=== PATIENT | female | born 1955 | race Caucasian/White ===

== ENCOUNTER 2017-10-03 20:29 | Inpatient (IN) | payer SELFPAY ==
--- NOTE | 2017-10-03 21:01 | ER Document Report ---
ED Medical Screen (RME) - General Chief Complaint: Foot Pain Stated Complaint: LEFT FOOT PAIN/SWELLING Time Seen by Provider: 10/03/17 20:49 Mode of Arrival: Wheelchair Information source: Patient Notes: This is a 61-year-old female with history of chronic back pain (gabapentin, amitriptyline), hypertension (lisinopril, Lasix), lower extremity cellulitis ( currently on Keflex), irregular vaginal bleeding (currently on medroxyprogesterone) who presents to the emergency room with lesions to the left foot. The patient has a history of chronic cellulitis to the right lower extremity. She has chronic sciatic type pain as well. Patient at baseline ambulates with a walker but is limited by her chronic sciatica. She states that 2 nights ago she started having pain in the affected toes. She states that yesterday she had "two blood blisters) to the foot and today the foot is gotten increased pain with increased blistering. Patient also notes that she has got lesions to the left hand as well. These are nontender. She denies fever. She denies recent illness. Patient upgraded in severity: To be moved to room 15 eminently. I have greeted and performed a rapid initial assessment of this patient. A comprehensive ED assessment and evaluation of the patient, analysis of test results and completion of medical decision making process we will be contacted by additional ED providers. TRAVEL OUTSIDE OF THE [place] IN LAST 30 DAYS: No - Related Data Allergies/Adverse Reactions: Penicillins Allergy (Verified 10/03/17 20:30) Physical Exam - Vital signs Vitals: Temp Pulse Resp BP Pulse Ox 98.2 F 116 H 16 128/83 H 96 10/03/17 20:36 10/03/17 20:36 10/03/17 20:36 10/03/17 20:36 10/03/17 20:36 Course - Vital Signs Vital signs: Temp Pulse Resp BP Pulse Ox 98.2 F 116 H 16 128/83 H 96 10/03/17 20:36 10/03/17 20:36 10/03/17 20:36 10/03/17 20:36 10/03/17 20:36
[2017-10-03] MEDS ORDERED: VANCOMYCIN HCL INJ 1000 MG VIAL IV ONE ×2 (21:04→21:45)
[2017-10-03] MEDS ORDERED: ONDANSETRON 4 MG TAB.RAPDIS PO ONE (21:06)
[2017-10-03] MEDS ORDERED: MORPHINE SULFATE 10 MG/ML INJ IV ONE (21:06)
[2017-10-03 21:18] LABS: ABSOLUTE EOSINOPHILS # (AUTO) 0.5 10^3/uL (0.0-0.6); ABSOLUTE LYMPHOCYTES (AUTO) 0.9 10^3/uL (0.5-4.7); ABSOLUTE MONOCYTES (AUTO) 0.8 10^3/uL (0.1-1.4); ABSOLUTE NEUT (AUTO) 12.3 10^3/uL (1.7-8.2); BASOPHILS % (AUTO) 0.3 % (0-2); EOSINOPHILS % (AUTO) 3.2 % (0-6); HEMATOCRIT 41.7 % (36.0-47.0); HEMOGLOBIN 13.5 g/dL (12.0-15.5); LYMPHOCYTES % (AUTO) 6.4 % (13-45); MEAN CORPUSCULAR HGB CONC 32.4 g/dL (32.0-36.0); MEAN CORPUSCULAR VOLUME 83 fl (80-97); MONOCYTES % (AUTO) 5.8 % (3-13); PLATELET COUNT 465 10^3/uL (150-450); RED BLOOD COUNT 5.01 10^6/uL (3.72-5.28); RED CELL DISTRIBUTION WIDTH 16.5 % (11.5-14.0); SEGMENTED NEUTROPHILS % (AUTO) 84.3 % (42-78); TOTAL CELLS COUNTED % (AUTO) 100 %; WHITE BLOOD COUNT 14.5 10^3/uL (4.0-10.5)
[2017-10-03 21:25] LABS: INTERNATIONAL RATION (INR) 0.98; PROTHROMBIN TIME 13.5 SEC (11.4-15.4)
[2017-10-03 21:26] LABS: PARTIAL THROMBOPLASTIN TIME 32.8 SEC (23.5-35.8)
[2017-10-03 21:40] LABS: ALANINE AMINOTRANSFERASE 23 U/L (9-52); ALBUMIN 4.1 g/dL (3.5-5.0); ALKALINE PHOSPHATASE 86 U/L (38-126); ANION GAP 13 (5-19); ASPARTATE AMINO TRANSFERASE 21 U/L (14-36); BILIRUBIN,DIRECT 0.3 mg/dL (0.0-0.4); BILIRUBIN,TOTAL 0.3 mg/dL (0.2-1.3); BLOOD UREA NITROGEN 21 mg/dL (7-20); CALCIUM 9.7 mg/dL (8.4-10.2); CARBON DIOXIDE 27 mmol/L (22-30); CHLORIDE 101 mmol/L (98-107); GLUCOSE 123 mg/dL (75-110); POTASSIUM 4.6 mmol/L (3.6-5.0); TOTAL PROTEIN 8.3 g/dL (6.3-8.2)
[2017-10-03] MEDS ORDERED: CEFEPIME 2 GM/D5W RTU 2 GM/50 ML RTUPB IV ONE (21:45)
[2017-10-03] MEDS ORDERED: FENTANYL CITRATE INJ/PF 100 MCG/2 ML AMPUL IV ONE (21:49)
--- NOTE | 2017-10-03 21:49 | ER Document Report ---
ED Extremity Problem, Lower - General Chief Complaint: Foot Pain Stated Complaint: LEFT FOOT PAIN/SWELLING Time Seen by Provider: 10/03/17 20:49 Mode of Arrival: Wheelchair Notes: Patient is a 61-year-old female that comes emergency department for chief complaint of severe worsening leg pain since yesterday, she has history of chronic cellulitis worse in the right lower extremity, had a Unna boot placed on the right lower extremity 5 days ago. She is currently on Keflex antibiotic. She states that yesterday she started noticing what looked like "bloody blisters" on the left foot, she cannot see the right foot. She has had increased pain and increased blistering since that time. Pain is so bad she cannot walk. She is starting to get blistering to the left hand area as well. No tenderness to the left hand. She denies fever or chills, nausea or vomiting. Other history includes chronic back pain, hypertension, peripheral vascular disease, and irregular vaginal bleeding on medroxyprogesterone. TRAVEL OUTSIDE OF THE [place] IN LAST 30 DAYS: No - Related Data Allergies/Adverse Reactions: Penicillins Allergy (Verified 10/03/17 20:30) Past Medical History - General Information source: Patient - Social History Smoking Status: Never Smoker Drug Abuse: None Lives with: Spouse/Significant other Family History: Reviewed & Not Pertinent - Past Medical History Cardiac Medical History: Reports: Hx Hypertension, Hx Peripheral Vascular Disease - Immunizations Immunizations up to date: No Hx Diphtheria, Pertussis, Tetanus Vaccination: Yes Review of Systems - Review of Systems Constitutional: No symptoms reported EENT: No symptoms reported Cardiovascular: See HPI Respiratory: No symptoms reported Gastrointestinal: No symptoms reported Genitourinary: No symptoms reported Female Genitourinary: No symptoms reported Musculoskeletal: See HPI Skin: See HPI Hematologic/Lymphatic: No symptoms reported Neurological/Psychological: No symptoms reported Physical Exam - Vital signs Vitals: Temp Pulse Resp BP Pulse Ox 98.2 F 116 H 16 128/83 H 96 10/03/17 20:36 10/03/17 20:36 10/03/17 20:36 10/03/17 20:36 10/03/17 20:36 - Notes Notes: GENERAL: Alert, interacts well. Patient grimacing in pain. Morbidly obese. HEAD: Normocephalic, atraumatic. EYES: Pupils equal, round, and reactive to light. Extraocular movements intact. ENT: Oral mucosa moist, tongue midline. NECK: Full range of motion. Supple. Trachea midline. LUNGS: Clear to auscultation bilaterally, no wheezes, rales, or rhonchi. No respiratory distress. HEART: Tachycardia noted but normal rhythm. No murmur ABDOMEN: Soft, non-tender. Non-distended. Bowel sounds present in all 4 quadrants. EXTREMITIES: Unna boot on right leg and foot, left leg with erythema of the dorsum of the foot extending around to the bottom of the foot and up the leg, there are multiple blisters over the toe with bruising blood-filled appearance, there is swelling to the extremity and some hardness extending up the leg. Tender to palpation. Cap refill is still intact. Sensation is still intact. Old ecchymosis looking area over the dorsum of the left hand. Normal upper extremity exam otherwise. BACK: no cervical, thoracic, lumbar midline tenderness. No saddle anesthesia, normal distal neurovascular exam. NEUROLOGICAL: Alert and oriented x3. Normal speech. [cranial nerves II through XII grossly intact]. PSYCH: Normal affect, normal mood. SKIN: Warm, dry, normal turgor. No rashes or lesions noted. Course - Re-evaluation Re-evalutation: Patient with impressive lower extremity swelling with secondary cellulitis and what appear to be blisters filled with blood over the toes. This is consistent with both feet. In the creases behind the knee as well. Areas are very tender , there is some firmness. Capillary refill and sensation intact. Feet are not cold but I cannot palpate pulse because of the swelling. Arterial Doppler shows pulses on both feet which appear normal. After elevation the feet and legs became less firm and less tender. No fever. Patient is tachycardic, not hypotensive. Leukocytosis at 14,000 with no bands. D-dimer is elevated but I was unable to get a venous Doppler at this time of night. Platelets are normal, clinical picture does not suggest DIC. Broad- spectrum antibiotics begun including vancomycin and cefepime. Discussed with Dr. Sims. Discussed with Dr. Romero, recommend CK, this was not significantly elevated, patient will be admitted to telemetry full admission. Patient states agreement with plan. - Vital Signs Vital signs: Temp Pulse Resp BP Pulse Ox 98.2 F 116 H 19 144/70 H 98 06/09/18 20:36 10/03/17 20:36 10/04/17 03:08 10/04/17 03:08 10/04/17 03:08 - Laboratory Result Diagrams: 10/03/17 21:00 10/03/17 21:00 Laboratory results interpreted by me: 10/03/17 10/03/17 10/03/17 21:00 21:00 21:00 WBC 14.5 H RDW 16.5 H Plt Count 465 H Seg Neutrophils % 84.3 H Lymphocytes % 6.4 L Absolute Neutrophils 12.3 H D-Dimer 14.18 H BUN 21 H Glucose 123 H Hemoglobin A1c % Total Protein 8.3 H 10/03/17 21:00 WBC RDW Plt Count Seg Neutrophils % Lymphocytes % Absolute Neutrophils D-Dimer BUN Glucose Hemoglobin A1c % 6.2 H Total Protein Discharge - Discharge Clinical Impression: Tachycardia Lower extremity cellulitis Qualifiers: Laterality: left Qualified Code(s): L03.116 - Cellulitis of left lower limb Leukocytosis Qualifiers: Leukocytosis type: other Qualified Code(s): D72.828 - Other elevated white blood cell count Condition: Stable Disposition: ADMITTED INPATIENT Admitting Provider: Hospitalist Unit Admitted: Telemetry
[2017-10-03 22:03] LABS: D-DIMER 14.18 ug/mL (0.00-0.50)
--- NOTE | 2017-10-03 22:16 | RADIOLOGY REPORT (SQ) ---
EXAM DESCRIPTION: CHEST SINGLE VIEW COMPLETED DATE/TIME: 10/03/2017 9:58 pm REASON FOR STUDY: leg infection COMPARISON: None. EXAM PARAMETERS: NUMBER OF VIEWS: One view. TECHNIQUE: Single frontal radiographic view of the chest acquired. RADIATION DOSE: NA LIMITATIONS: Patient's body habitus and positioning. FINDINGS: LUNGS AND PLEURA: The patient is rotated. Subsegmental atelectasis noted at the right mid lung. There is blunting of the left costophrenic angle with airspace opacity at the left lung base. No pneumothorax. MEDIASTINUM AND HILAR STRUCTURES: No obvious masses. HEART AND VASCULAR STRUCTURES: The heart is upper normal limit in size. No overt vascular congestion . BONES: Degenerative changes are seen within the spine. HARDWARE: None in the chest. IMPRESSION: Subsegmental atelectasis at the right midlung. Blunting of the left costophrenic angle with airspace opacity at the left lung base, may be secondary to a small left pleural effusion with a djacent atelectasis or pneumonia. Followup with PA and lateral views recommended when patient's cond ition allows. TECHNICAL DOCUMENTATION: JOB ID: [id number] [employer]- All Rights Reserved Reading location - IP/workstation name: [email or web address]
[2017-10-03 22:25] LABS: VENOUS BLOOD BASE EXCESS 1.5 mmol/L; VENOUS BLOOD HCO3 26.9 mmol/L (20-32); VENOUS BLOOD PCO2 45.5 mmHg (35-63); VENOUS BLOOD PH 7.39 (7.30-7.42)
[2017-10-03] MEDS ORDERED: MORPHINE SULFATE IR 15 MG TABLET PO ONE (23:20)
[2017-10-04] MEDS ORDERED: IPRATROPIUM/ALBUTEROL 0.5-2.5 MG/3 ML AMPUL NEB PRN (01:22)
[2017-10-04] MEDS ORDERED: MAGNESIUM HYDROXIDE SUSP 30 ML UDCUP PO PRN (01:22)
[2017-10-04] MEDS ORDERED: KETOROLAC TROMETHAMINE INJ/PF 30 MG/1 ML SDV IV PRN (01:25)
[2017-10-04] MEDS ORDERED: VANCOMYCIN HCL 0 MG in DEXTROSE 5%-WATER 250 ML IV NR (01:30)
[2017-10-04] MEDS: NORMAL SALINE 1000 ML 1,000 ML IV SCH ×2 (04:05→09:07)
[2017-10-04 06:27] LABS: ABSOLUTE BASOPHILS # (AUTO) 0.1 10^3/uL (0.0-0.2); ABSOLUTE EOSINOPHILS # (AUTO) 0.3 10^3/uL (0.0-0.6); ABSOLUTE LYMPHOCYTES (AUTO) 0.9 10^3/uL (0.5-4.7); ABSOLUTE MONOCYTES (AUTO) 0.8 10^3/uL (0.1-1.4); ABSOLUTE NEUT (AUTO) 9.9 10^3/uL (1.7-8.2); BASOPHILS % (AUTO) 0.7 % (0-2); EOSINOPHILS % (AUTO) 2.7 % (0-6); HEMATOCRIT 34.7 % (36.0-47.0); LYMPHOCYTES % (AUTO) 7.5 % (13-45); MEAN CORPUSCULAR HEMOGLOBIN 27.5 pg (27.0-33.4); MEAN CORPUSCULAR HGB CONC 32.7 g/dL (32.0-36.0); MEAN CORPUSCULAR VOLUME 84 fl (80-97); MONOCYTES % (AUTO) 6.3 % (3-13); PLATELET COUNT 401 10^3/uL (150-450); RED BLOOD COUNT 4.13 10^6/uL (3.72-5.28); RED CELL DISTRIBUTION WIDTH 16.2 % (11.5-14.0); SEGMENTED NEUTROPHILS % (AUTO) 82.8 % (42-78); TOTAL CELLS COUNTED % (AUTO) 100 %
--- NOTE | 2017-10-04 06:37 | PDOC H&P ---
History of Present Illness Admission Date/PCP: 10/04/17 01:17 ARNIE MEREDITH MD Patient complains of: Right leg pain History of Present Illness: CHIDI RIVERA is a 61 year old female with a past medical history of morbid obesity and bilateral venous stasis. Patient presents with 24 hours of right lower leg erythema swelling pain developing blisters in the toes bilaterally.. Patient has been on Keflex for chronic cellulitis via wound care clinic. She denies any new skin products, clothing, medications, seafood or water exposure. In the emergency room she is started on empiric antibiotics, symptomatic management and referred to the hospitalist for admission. Patient denies previous episode. Past Medical History Cardiac Medical History: Reports: Hypertension, Peripheral Vascular Disease Pulmonary Medical History: Reports: Sleep Apnea EENT Medical History: Reports: None Neurological Medical History: Reports: None Endocrine Medical History: Reports: None Renal/ Medical History: Reports: None Malignancy Medical History: Reports: None GI Medical History: Reports: None Musculoskeltal Medical History: Reports: Arthritis Skin Medical History: Reports: None Psychiatric Medical History: Reports: None Traumatic Medical History: Reports: None Hematology: Reports: None Infectious Medical History: Reports: None Past Surgical History Past Surgical History: Reports: None Social History Information Source: Patient, [facility] Records Lives with: Spouse/Significant other Smoking Status: Never Smoker Frequency of Alcohol Use: None Drugs: None - Advance Directive Resuscitation Status: Full Code Family History Family History: Hypertension Parental Family History Reviewed: Yes Children Family History Reviewed: Yes Sibling(s) Family History Reviewed.: Yes Medication/Allergy Allergies/Adverse Reactions: Penicillins Allergy (Verified 10/03/17 20:30) Review of Systems Constitutional: ABSENT: chills, fever(s), headache(s), weight gain, weight loss Eyes: ABSENT: visual disturbances Ears: ABSENT: hearing changes Cardiovascular: ABSENT: chest pain, dyspnea on exertion, edema, orthropnea, palpitations Respiratory: ABSENT: cough, hemoptysis Gastrointestinal: ABSENT: abdominal pain, constipation, diarrhea, hematemesis, hematochezia, nausea, vomiting Genitourinary: ABSENT: dysuria, hematuria Musculoskeletal: ABSENT: joint swelling Integumentary: ABSENT: rash, wounds Neurological: ABSENT: abnormal gait, abnormal speech, confusion, dizziness, focal weakness, syncope Psychiatric: ABSENT: anxiety, depression, homidical ideation, suicidal ideation Endocrine: ABSENT: cold intolerance, heat intolerance, polydipsia, polyuria Hematologic/Lymphatic: ABSENT: easy bleeding, easy bruising Physical Exam Vital Signs: Temp Pulse Resp BP Pulse Ox 98.5 F 103 H 19 130/57 H 93 10/04/17 04:19 10/04/17 04:19 10/04/17 04:19 10/04/17 04:19 10/04/17 04:19 Intake & Output 10/02/17 10/03/17 10/04/17 11:59 11:59 11:59 Intake Total 0 Output Total 500 Balance -500 Weight 132.2 kg General appearance: PRESENT: cooperative, disheveled, mild distress, morbidly obese Head exam: PRESENT: atraumatic, normocephalic Eye exam: PRESENT: conjunctiva pink, EOMI, PERRLA. ABSENT: scleral icterus Ear exam: PRESENT: normal external ear exam Mouth exam: PRESENT: moist, tongue midline Neck exam: ABSENT: carotid bruit, JVD, lymphadenopathy, thyromegaly Respiratory exam: PRESENT: clear to auscultation shari, crackles. ABSENT: rales, rhonchi, wheezes Cardiovascular exam: PRESENT: RRR. ABSENT: diastolic murmur, rubs, systolic murmur Pulses: PRESENT: normal dorsalis pedis pul Vascular exam: PRESENT: normal capillary refill GI/Abdominal exam: PRESENT: normal bowel sounds, soft. ABSENT: distended, guarding, mass, organolmegaly, rebound, tenderness Rectal exam: PRESENT: deferred Extremities exam: PRESENT: +2 edema - Right lower extremity with blistering of the toes, no open ulcer or exudate, +2 edema and circumferential erythema to the mid thigh. Neurological exam: PRESENT: alert, awake, oriented to person, oriented to place , oriented to time, oriented to situation, CN II-XII grossly intact. ABSENT: motor sensory deficit Psychiatric exam: PRESENT: appropriate affect, normal mood. ABSENT: homicidal ideation, suicidal ideation Skin exam: PRESENT: dry, intact, warm, other - As above. ABSENT: cyanosis, rash Results Impressions: Chest X-Ray 10/03/17 20:52 IMPRESSION: Subsegmental atelectasis at the right midlung. Blunting of the left costophrenic angle with airspace opacity at the left lung base, may be secondary to a small left pleural effusion with adjacent atelectasis or pneumonia. Followup with PA and lateral views recommended when patient's condition allows. Assessment & Plan - Diagnosis (1) Lower extremity cellulitis Qualifiers: Laterality: left Qualified Code(s): L03.116 - Cellulitis of left lower limb Is this a current diagnosis for this admission?: Yes Plan: Bilateral blistering with blood, concern for possible contact dermatitis versus vibrio. Empiric antibiotics, follow-up blood culture, venous Doppler. Surgical consultation consideration of necrotizing fasciitis or compartment syndrome. (2) Morbid obesity Is this a current diagnosis for this admission?: Yes Plan: Morbid obesity will evaluate for metabolic cause with evaluation of thyroid function and dietitian consultation (3) Sleep apnea Is this a current diagnosis for this admission?: Yes Plan: BiPAP (4) Tachycardia Is this a current diagnosis for this admission?: Yes Plan: Secondary to #1, consider beta-blockers if not on home regiment - Time Time Spent: 30 to 50 Minutes - Inpatient Certification Medical Necessity: Need Close Monitoring Due to Risk of Patient Decompensation
[2017-10-04] MEDS: HEPARIN SOD (PORCINE) 5,000 UNIT/ML 1 ML SYRINGE SUBCUT SCH ×2 (06:39→14:04)
[2017-10-04 06:47] LABS: HEMOGLOBIN 11.4 g/dL (12.0-15.5)
[2017-10-04 07:15] LABS: ANION GAP 7 (5-19); BLOOD UREA NITROGEN 17 mg/dL (7-20); CARBON DIOXIDE 29 mmol/L (22-30); CHLORIDE 104 mmol/L (98-107); GLUCOSE 99 mg/dL (75-110); SODIUM 140.2 mmol/L (137-145)
[2017-10-04] MEDS: CEFEPIME 1 GM/D5W RTU 1 GM/50 ML RTUPB IV SCH ×2 (09:06→21:54)
[2017-10-04] MEDS: DOCUSATE SODIUM 100 MG CAPSULE PO SCH ×2 (09:07→17:15)
[2017-10-04] MEDS ORDERED: FENTANYL CITRATE INJ/PF 100 MCG/2 ML AMPUL IV PRN (10:49)
[2017-10-04] MEDS: VANCOMYCIN HCL 1,250 MG in DEXTROSE 5%-WATER 250 ML IV SCH ×2 (11:19→22:53)
--- NOTE | 2017-10-04 11:49 | XCELERA REPORT ---
[address] [address] Lower Extremity Arterial Evaluation Name: CHIDI RIVERA Age: 61 yrs Gender: Female : 1955 Patient Status: Emergency Patient Location: ER Study Date: 10/03/2017 10:08 PM Procedure: A color flow and duplex scan of the lower extremity arteries was performed on the left with velocity and waveform anaylsis. Reason For Study: left lower extremity Ordering Physician: GIDEON GARCÍA Performed By: Sujata Wood Measurements and Calculations Right Left CUSTOMER CONSULTANT PSV 215.0 cm/sec Prox PFA PSV 94.3 cm/sec Prox SFA PSV 178.1 cm/sec Mid SFA PSV -94.3 cm/sec Dist SFA PSV -105.6 cm/sec Prox Pop A PSV 56.3 cm/sec Dist MARISELA PSV 54.2 cm/sec Dist SUPERVISOR [employer]ANDSCAPE PSV 33.4 cm/sec Catracho Pedis PSV 91.8 98.2 cm/sec Left Side Arterial Evaluation Normal velocity and triphasic waveforms noted from the Common Femoral artery to the Popliteal . Biphasic in the infrageniculate vessels 20-49 % stenosis at the infrageniculate level . Ankle Brachial index not done due to body habitus. Interpretation Summary Moderate hemodynamically significant lesions in the left lower extremity only, on duplex imaging, at rest. : GIDEON GARCÍA > Bernabe Win
--- NOTE | 2017-10-04 12:54 | PDOC PROGRESS REPORT ---
Subjective Progress Note for:: 10/04/17 Subjective:: The patient is a 61-year-old female with past medical history significant for morbid obesity, bilateral venous stasis, hypertension, peripheral vascular disease, sleep apnea, arthritis, and chronic cellulitis of the right lower extremity followed by wound care clinic who was admitted on 10/04/17 for worsening lower extremity cellulitis. Patient is seen on morning rounds. She is found resting in bed on supplemental oxygen via nasal cannula 2 L/min. She appears to be mildly dyspneic at rest, but is fully conversational without pauses while speaking. She reports that she has had chronic cellulitis of the right lower extremity recently treated by Matthew and Lauren turk. She reports approximately 3-4 days ago she noted blisters to her left foot. She reports that initially they were not painful and she did not note any erythema or worsening edema to the left extremity. She reports that a few days later, she noted that the blisters appear to be filled with blood which prompted her to be seen in the emergency department. She was not aware she had similar bullae to her right toes as she is not able to visualize that extremity. She denies fever, chills, malaise, chest pain, palpitations, abdominal pain, nausea vomiting or diarrhea. She denies recent skin injuries. She is a poor historian regarding her entire medical history; but does deny history of IV drug use, valve prosthesis, and atrial fibrillation. Reason For Visit: CELLULITIS MORBID OBESITY Physical Exam Vital Signs: Temp Pulse Resp BP Pulse Ox 97.4 F 92 18 113/43 L 96 10/04/17 07:56 10/04/17 09:24 10/04/17 09:24 10/04/17 07:56 10/04/17 09:24 Intake & Output 10/03/17 10/04/17 10/05/17 06:59 06:59 06:59 Intake Total 400 Output Total 500 Balance -100 Weight 132.2 kg General appearance: PRESENT: no acute distress, cooperative, morbidly obese, well-developed, well-nourished Head exam: PRESENT: atraumatic, normocephalic Eye exam: PRESENT: conjunctiva pink, EOMI, PERRLA. ABSENT: scleral icterus Mouth exam: PRESENT: moist, tongue midline Neck exam: ABSENT: carotid bruit, JVD, lymphadenopathy, thyromegaly Respiratory exam: PRESENT: decreased breath sounds - Bibasilar; secondary to body habitus, positioning, respiratory effort, prolonged expiratory phas, symmetrical, tachypnea, other - Supplemental oxygen via nasal cannula. ABSENT: rales, rhonchi, wheezes Cardiovascular exam: PRESENT: RRR, tachycardia. ABSENT: diastolic murmur, rubs , systolic murmur Vascular exam: PRESENT: normal capillary refill GI/Abdominal exam: PRESENT: normal bowel sounds, soft. ABSENT: distended, guarding, mass, organolmegaly, rebound, tenderness Rectal exam: PRESENT: deferred Extremities exam: PRESENT: other - Limited range of motion secondary to body habitus and pain. ABSENT: calf tenderness, clubbing, pedal edema Musculoskeletal exam: ABSENT: ambulatory - At baseline, patient requires assistance for transitions but is ambulatory with walker. Neurological exam: PRESENT: alert, awake, oriented to person, oriented to place , oriented to time, oriented to situation, CN II-XII grossly intact. ABSENT: motor sensory deficit Psychiatric exam: PRESENT: appropriate affect, normal mood, other - Tearful. ABSENT: homicidal ideation, suicidal ideation Skin exam: PRESENT: dry, erythema - Right lower extremity, warm, other - RLE erythema beginning just distal to the knee and extending to the dorsum of her foot. +3 nonpitting edema bilaterally. Numerous hemorrhagic bullae to the dorsum of bilateral feet and toes with tender subcutaneous ecchymotic lesions to the plantar surfaces of her feet. Numerous small hemorrhagic bullae to posterior left knee. Two hemorrhagic bullae noted to the posterior left hand, subcutaneous ecchymotic lesions to the palmar surface of bilateral hands.. ABSENT: cyanosis, rash Results Laboratory Results: 10/04/17 06:10 10/04/17 06:10 10/04/17 10/04/17 06:10 06:10 WBC 12.0 H RBC 4.13 Hgb 11.4 L D Hct 34.7 L MCV 84 MCH 27.5 MCHC 32.7 RDW 16.2 H Plt Count 401 Seg Neutrophils % 82.8 H Lymphocytes % 7.5 L Monocytes % 6.3 Eosinophils % 2.7 Basophils % 0.7 Absolute Neutrophils 9.9 H Absolute Lymphocytes 0.9 Absolute Monocytes 0.8 Absolute Eosinophils 0.3 Absolute Basophils 0.1 Sodium 140.2 Potassium 5.0 Chloride 104 Carbon Dioxide 29 Anion Gap 7 BUN 17 Creatinine 0.71 Est GFR ( Amer) > 60 Est GFR (Non-Af Amer) > 60 Glucose 99 Calcium 9.0 10/04/17 06:10 NT-Pro-B Natriuret Pep 321 Impressions: Chest X-Ray 10/03/17 20:52 IMPRESSION: Subsegmental atelectasis at the right midlung. Blunting of the left costophrenic angle with airspace opacity at the left lung base, may be secondary to a small left pleural effusion with adjacent atelectasis or pneumonia. Followup with PA and lateral views recommended when patient's condition allows. Assessment & Plan - Diagnosis (1) Lower extremity cellulitis Qualifiers: Qualified Code(s): L03.116 - Cellulitis of left lower limb Is this a current diagnosis for this admission?: Yes Plan: Bilateral lower leg cellulitis. Chronic cellulitis of the right lower extremity. Upon admission, both ED and hospitalist providers noted erythema and cellulitis to the left lower extremity. On evaluation this morning, erythema of the LLE has resolved. The patient has numerous hemorrhagic bullae to bilateral feet, toes, posterior left knee, posterior left hand and tender subcutaneous ecchymotic lesion to the plantar portion of bilateral feet and palmar surfaces of hands (appearance suggestive of Osler nodes). Differential includes dermatitis, vibrio, necrotizing fasciitis, vasculitis, and embolic skin lesions. Leukocytosis is trending down. Patient remains afebrile. Arterial studdy (LLE) demonstrates 20-49% stenosis at infrageniculate level. Venous doppler is pending. Blood cultures are pending. The patient is admitted to the medical floor on continuous cardiac telemetry. She is supported with IV fluids. She is empirically placed on vancomycin and cefepime. Surgery is consulted; appreciate their expert evaluation and recommendations. Will obtain echocardiogram; noting that images will likely be limited secondary to her body habitus. If sorce remains undetermined (especially if patient develops fever or blood cultures are positive) should consider follow-up KIAN. Consider steroids (for vasculitis); will await surgical evaluation. (2) Skin bulla Is this a current diagnosis for this admission?: Yes Plan: As above. (3) Leukocytosis Qualifiers: Qualified Code(s): D72.828 - Other elevated white blood cell count Is this a current diagnosis for this admission?: Yes Plan: Secondary to #1. Trending down. Cultures and antibiotics as above. (4) Sleep apnea Is this a current diagnosis for this admission?: Yes Plan: CPAP nightly. (5) Morbid obesity Is this a current diagnosis for this admission?: Yes Plan: Morbid obesity will likely complicate the patient's recovery; worsening sleep apnea, wound healing, and poor mobility placing her at further risk of skin break down, pneumonia, thrombosis. We will evaluate TSH with morning labs. A1c is noted to be 6.2. We will ask the registered dietitian to make recommendations. (6) Tachycardia Is this a current diagnosis for this admission?: Yes Plan: Likely secondary to #1; infection, pain, anxiety. Her rate appears to be trending down with IV fluids and supportive care, by mid morning was in the mid 90s. We will continue to monitor. - Time Time Spent with patient: 25-34 minutes Medications reviewed and adjusted accordingly: Yes Anticipated discharge: Acute Rehab - Inpatient Certification Based on my medical assessment, after consideration of the patient's comorbidities, presenting symptoms, or acuity I expect that the services needed warrant INPATIENT care.: Yes I certify that my determination is in accordance with my understanding of Medicare's requirements for reasonable and necessary INPATIENT services [42 CFR 412.3e].: Yes Medical Necessity: Failure to Improve With Outpatient Therapy, Need Close Monitoring Due to Risk of Patient Decompensation, Need for IV Antibiotics
[2017-10-04] MEDS ORDERED: NYSTATIN TOPICAL POWDER 15 GM TP ONE (13:00)
[2017-10-04] MEDS ORDERED: HEPARIN SOD (PORCINE) 1,000 UNIT/ML 10 ML VIAL IV ONE (15:29)
[2017-10-04 16:36] LABS: FIBRINOGEN 609 mg/dL (209-497); INTERNATIONAL RATION (INR) 1.06; PROTHROMBIN TIME 14.3 SEC (11.4-15.4)
[2017-10-04 16:37] LABS: PARTIAL THROMBOPLASTIN TIME 35.3 SEC (23.5-35.8)
[2017-10-04 17:15] LABS: APPEARANCE,URINE CLEAR; BILIRUBIN,URINE NEGATIVE (NEGATIVE); COLOR,URINE STRAW; GLUCOSE, URINE NEGATIVE (NEGATIVE); KETONES,URINE NEGATIVE (NEGATIVE); LEUKOCYTE ESTERASE,URINE NEGATIVE (NEGATIVE); NITRITE,URINE NEGATIVE (NEGATIVE); PROTEIN,URINE NEGATIVE (NEGATIVE); URINE SPECIFIC GRAVITY 1.005; UROBILINOGEN,URINE NEGATIVE mg/dL (<2.0)
[2017-10-04] MEDS: NYSTATIN TOPICAL POWDER 15 GM TP SCH (17:17)
[2017-10-04] MEDS: HYDROCODONE/ACETAMINOPHEN 10-325 MG TABLET PO PRN (19:18)
[2017-10-04] MEDS ORDERED: HEPARIN SOD (PORCINE) 1,000 UNIT/ML 10 ML VIAL ONE (19:57)
[2017-10-04] MEDS: HEPARIN SODIUM,PORCINE/D5W 25,000 UNIT/250 ML RTUINJ IV PRN (20:03)
--- NOTE | 2017-10-04 20:05 | RADIOLOGY REPORT (SQ) ---
EXAM DESCRIPTION: CTA CHEST COMPLETED DATE/TIME: 10/04/2017 7:13 pm REASON FOR STUDY: dyspnea, hypoxia, tachycardia ?PE COMPARISON: Recent chest films. TECHNIQUE: CT scan of the chest performed using helical scanning technique with dynamic intravenous contrast injection. Images reviewed with lung, soft tissue and bone windows. Reconstructed coronal and sagittal MPR images reviewed. Additional 3 dimensional post-processing performed to develop Maximal Intensity Projection images (NE P). All images stored on PACS. All CT scanners at this facility use dose modulation, iterative reconstruction, and/or weight based d osing when appropriate to reduce radiation dose to as low as reasonably achievable (ALARA). [facility]: Dose Right [facility]: CareDose [facility]: Dose Right [facility]: Teradose 4D [facility]: Smart Destinations CONTRAST TYPE AND DOSE: contrast/concentration: Isovue 370.00 mg/ml; Total Contrast Delivered: 86.0 ml; Total Saline Delivered: 110.0 ml Contrast bolus adequate for pulmonary arteries and aorta. RENAL FUNCTION: GFR > 60. RADIATION DOSE: CT Rad equipment meets quality standard of care and radiation dose reduction techniq ues were employed. CTDIvol: 38.1 - 57.9 mGy. DLP: 1344 mGy-cm. . LIMITATIONS: Mildly limiting motion artifact. FINDINGS: LUNGS AND PLEURA: Areas of patchy scar, subsegmental atelectasis and haziness in the lung turner. Superimposed on motion. Small right pleural effusion. AORTA AND GREAT VESSELS: No aneurysm. Contrast bolus not optimized for the aorta. HEART: Cardiac enlargement. Marked coronary calcification. No pericardial effusion. PULMONARY ARTERIES: Prominent central pulmonary arteries with attenuation peripherally. This may ref lect pulmonary arterial hypertension. No embolus detected. HILAR AND MEDIASTINAL STRUCTURES: There is relatively mild mediastinal and hilar adenopathy with gene rally subcentimeter lymph nodes. Moderate hiatal hernia. HARDWARE: None in the chest. UPPER ABDOMEN: Mild contrast refluxing into dilated hepatic veins. This suggests right heart failure . THYROID AND OTHER SOFT TISSUES: No masses. No adenopathy. BONES: Spondylosis. No fracture or worrisome bone lesion. 3D MIPS: Confirm above findings. OTHER: No other significant finding. IMPRESSION: 1. No pulmonary embolus. There may be pulmonary arterial hypertension, however. 2. Ma rked cardiomegaly. Small right pleural effusion. 3. Motion artifact and lung changes as above. Katlyn pect some of this represents mild edema related to CHF. COMMENT: Quality ID # [id number]: Final reports with documentation of one or more dose reduction techniques (e.g., Automated exposure control, adjustment of the mA and/or kV according to patient size, use of iterative reconstruction technique) TECHNICAL DOCUMENTATION: JOB ID: [id number] [employer]- All Rights Reserved Reading location - IP/workstation name: [email or web address]
--- NOTE | 2017-10-04 21:46 | Progress Note ---
Provider Note Provider Note: Repeat physical exam: Bilateral feet are essentially unchanged. Purpuric lesions are still present. No extension or enlargement. Minimal tenderness. Minimal erythema. Patient was started on heparin earlier today. No fever/chills. No overt signs of abscess. Continue with close observation, antibiotics, and blood thinners.
--- NOTE | 2017-10-04 22:26 | PDOC CONSULTATION ---
Consultation Consult Date: 10/04/17 Consult reason:: cellulitis of right leg. Bruising to bilateral feet. History of Present Illness Admission Date/PCP: 10/04/17 01:17 ARNIE MEREDITH MD History of Present Illness: The patient is seen in consultation at the request of the hospitalist service. CHIDI RIVERA is a 61 year old female with a 2-day history of pain in bilateral feet and swelling/erythema of the right leg. Patient has chronic venous insufficiency and has been undergoing Unna boot therapy on the right. The patient reports noticing bruising on her feet approximately 48 hours ago. The bruising has become more widespread over the last 24 hours. The patient reports mild to moderate pain in bilateral lower extremities. Her pain is characterized as a cramping/throbbing pain. The pain is worsened by palpation. The pain is relieved by nothing. The patient denies any change in motor or sensory function. The patient does report shortness of breath with increasing oxygen requirements, but denies overt chest pain, dizziness, abdominal pain, melena, hematochezia, orthostasis. Past Medical History Cardiac Medical History: Reports: Hypertension, Peripheral Vascular Disease Pulmonary Medical History: Reports: Sleep Apnea, Other - Wears oxygen at home occasionally. EENT Medical History: Reports: None Neurological Medical History: Reports: None Endocrine Medical History: Reports: None Renal/ Medical History: Reports: None Malignancy Medical History: Reports: None GI Medical History: Reports: None Musculoskeltal Medical History: Reports: Arthritis Skin Medical History: Reports: None Psychiatric Medical History: Reports: None Traumatic Medical History: Reports: None Hematology: Reports: None Infectious Medical History: Reports: None Past Surgical History Past Surgical History: Reports: None Social History Lives with: Spouse/Significant other Smoking Status: Never Smoker Frequency of Alcohol Use: None Drugs: None - Advance Directive Resuscitation Status: Full Code Family History Family History: Hypertension Parental Family History Reviewed: Yes Children Family History Reviewed: Yes Sibling(s) Family History Reviewed.: Yes Medication/Allergy Home Medications: Amitriptyline HCl 1 tab PO DAILY 10/04/17 Duloxetine HCl 20 mg PO DAILY 10/04/17 Furosemide [Lasix 40 mg Tablet] 40 mg PO QAM 10/04/17 Gabapentin [Neurontin 300 mg Capsule] 900 mg PO Q8 10/04/17 Hydrocodone Bit/Acetaminophen [Hydrocodon-Acetaminophn 10-325] 1 each PO BID PRN 10/04/17 Hydrocodone/Acetaminophen [[place] 10-325 mg Tablet] 1 tab PO Q4HP PRN 10/04/17 Lisinopril 10 mg PO DAILY 10/04/17 Medroxyprogesterone Acetate 1 tab PO TID 10/04/17 Allergies/Adverse Reactions: Penicillins Allergy (Verified 10/03/17 20:30) Review of Systems Constitutional: PRESENT: fatigue. ABSENT: chills, fever(s), headache(s) Eyes: ABSENT: visual disturbances Ears: ABSENT: hearing changes Nose, Mouth, and Throat: ABSENT: sore throat Cardiovascular: PRESENT: dyspnea on exertion, edema, orthropnea, palpitations. ABSENT: chest pain Respiratory: PRESENT: dyspnea. ABSENT: cough Gastrointestinal: ABSENT: abdominal pain, bloating, dysphagia, heartburn Musculoskeletal: PRESENT: other - Swelling and pain in the lateral feet and right lower leg. ABSENT: back pain Integumentary: PRESENT: erythema - Right lower leg, other - Purpuric rash bilateral feet, progressive over the last 48 hours Neurological: ABSENT: memory loss, numbness, paresthesias Psychiatric: ABSENT: anxiety, depression Endocrine: ABSENT: cold intolerance, heat intolerance Hematologic/Lymphatic: ABSENT: easy bruising Physical Exam Vital Signs: Temp Pulse Resp BP Pulse Ox 98.0 F 98 18 98/49 L 91 L 10/04/17 11:30 10/04/17 11:30 10/04/17 11:30 10/04/17 11:30 10/04/17 11:30 Intake & Output 10/03/17 10/04/17 10/05/17 06:59 06:59 06:59 Intake Total 400 Output Total 500 Balance -100 Weight 132.2 kg General appearance: PRESENT: no acute distress Head exam: PRESENT: atraumatic, normocephalic Eye exam: PRESENT: EOMI, PERRLA. ABSENT: scleral icterus Mouth exam: PRESENT: moist, neck supple Neck exam: ABSENT: lymphadenopathy, meningismus, tenderness, thyromegaly, tracheal deviation Respiratory exam: PRESENT: rales, unlabored. ABSENT: chest wall tenderness, wheezes Cardiovascular exam: PRESENT: RRR Pulses: PRESENT: normal radial pulses, +1 pedal pulses bilateral - Palpable dorsalis pedis bilaterally Vascular exam: ABSENT: pallor GI/Abdominal exam: PRESENT: soft. ABSENT: distended, hernia, tenderness Rectal exam: PRESENT: deferred Extremities exam: PRESENT: other - Purpuric rash across bilateral feet. Left worse than right. No purulence or abscess evident. Motor and sensory function is grossly intact. Minimally tender to palpation. Neurological exam: PRESENT: alert, awake, oriented to person, oriented to place , oriented to time, oriented to situation, CN II-XII grossly intact. ABSENT: motor sensory deficit Psychiatric exam: ABSENT: agitated, anxious, depressed Skin exam: PRESENT: erythema, rash - Purpuric rash on bilateral toes and feet.. ABSENT: cyanosis Results Laboratory Results: 10/04/17 06:10 10/04/17 06:10 10/04/17 10/04/17 10/04/17 06:10 06:10 06:10 WBC 12.0 H RBC 4.13 Hgb 11.4 L D Hct 34.7 L MCV 84 MCH 27.5 MCHC 32.7 RDW 16.2 H Plt Count 401 Seg Neutrophils % 82.8 H Lymphocytes % 7.5 L Monocytes % 6.3 Eosinophils % 2.7 Basophils % 0.7 Absolute Neutrophils 9.9 H Absolute Lymphocytes 0.9 Absolute Monocytes 0.8 Absolute Eosinophils 0.3 Absolute Basophils 0.1 Sodium 140.2 Potassium 5.0 Chloride 104 Carbon Dioxide 29 Anion Gap 7 BUN 17 Creatinine 0.71 Est GFR ( Amer) > 60 Est GFR (Non-Af Amer) > 60 Glucose 99 Calcium 9.0 C-Reactive Protein 80.5 H 10/04/17 06:10 NT-Pro-B Natriuret Pep 321 Impressions: Chest X-Ray 10/03/17 20:52 IMPRESSION: Subsegmental atelectasis at the right midlung. Blunting of the left costophrenic angle with airspace opacity at the left lung base, may be secondary to a small left pleural effusion with adjacent atelectasis or pneumonia. Followup with PA and lateral views recommended when patient's condition allows. Assessment & Plan - Diagnosis (1) Chronic venous insufficiency Is this a current diagnosis for this admission?: Yes (2) Arterial embolus of lower extremity Is this a current diagnosis for this admission?: Yes (3) Lower extremity cellulitis Qualifiers: Laterality: right Qualified Code(s): L03.115 - Cellulitis of right lower limb Is this a current diagnosis for this admission?: Yes - Plan Summary Plan Summary: This is a 61-year-old female with multiple significant issues. She is experiencing increasing shortness of breath, which is being followed by the medical service. She also has chronic venous changes in bilateral lower extremities. She has superimposed cellulitis on the right. Graduated compression, elevation, and antibiotics should help resolve this. She also has multiple purpura extending over the dorsal surface of the toes and foot. They have been stable over the last several hours, and I doubt these are infectious in nature. I do not see obvious signs of necrotizing fasciitis. The patient denies a history of blood thinners or embolic events. I am concerned that these purpura represent showering micro emboli. The medical team is ordering a CT angiogram for possible pulmonary embolus. This will allow us to evaluate for significant aortic plaquing. An echo is also ordered. Anticoagulation may be required. Treatment is supportive. Will follow.
[2017-10-05] MEDS: HYDROCODONE/ACETAMINOPHEN 10-325 MG TABLET PO PRN ×2 (02:08→21:12)
[2017-10-05] MEDS: KETOROLAC TROMETHAMINE INJ/PF 30 MG/1 ML SDV IV PRN ×2 (04:26→11:00)
[2017-10-05 05:16] LABS: APPEARANCE,URINE CLEAR; BILIRUBIN,URINE NEGATIVE (NEGATIVE); COLOR,URINE YELLOW; GLUCOSE, URINE NEGATIVE (NEGATIVE); KETONES,URINE NEGATIVE (NEGATIVE); LEUKOCYTE ESTERASE,URINE NEGATIVE (NEGATIVE); NITRITE,URINE NEGATIVE (NEGATIVE); PROTEIN,URINE NEGATIVE (NEGATIVE); URINE SPECIFIC GRAVITY 1.018; UROBILINOGEN,URINE NEGATIVE mg/dL (<2.0)
--- NOTE | 2017-10-05 07:35 | EKG REPORT ---
SEVERITY:- ABNORMAL ECG - SINUS TACHYCARDIA ABNORMAL T, CONSIDER ISCHEMIA, INFERIOR LEADS : Confirmed by: Niels Lund MD 05-Oct-2017 07:34:43
[2017-10-05 08:15] LABS: HEMATOCRIT 34.1 % (36.0-47.0); MEAN CORPUSCULAR HEMOGLOBIN 27.4 pg (27.0-33.4); MEAN CORPUSCULAR HGB CONC 32.3 g/dL (32.0-36.0); MEAN CORPUSCULAR VOLUME 85 fl (80-97); PLATELET COUNT 375 10^3/uL (150-450); RED BLOOD COUNT 4.02 10^6/uL (3.72-5.28); RED CELL DISTRIBUTION WIDTH 16.4 % (11.5-14.0); WHITE BLOOD COUNT 9.3 10^3/uL (4.0-10.5)
[2017-10-05 08:32] LABS: ANION GAP 7 (5-19); BLOOD UREA NITROGEN 14 mg/dL (7-20); CALCIUM 9.1 mg/dL (8.4-10.2); CARBON DIOXIDE 29 mmol/L (22-30); CHLORIDE 107 mmol/L (98-107); GLUCOSE 97 mg/dL (75-110); POTASSIUM 4.8 mmol/L (3.6-5.0); SODIUM 142.5 mmol/L (137-145)
[2017-10-05] MEDS: DOCUSATE SODIUM 100 MG CAPSULE PO SCH ×2 (09:22→17:53)
[2017-10-05] MEDS: FENTANYL CITRATE INJ/PF 100 MCG/2 ML AMPUL IV PRN ×2 (09:22→10:15)
[2017-10-05] MEDS: CEFEPIME 1 GM/D5W RTU 1 GM/50 ML RTUPB IV SCH ×2 (09:28→22:29)
--- NOTE | 2017-10-05 09:28 | PDOC PROGRESS REPORT ---
Subjective Progress Note for:: 10/05/17 Subjective:: Still having pain in her feet Reason For Visit: CELLULITIS MORBID OBESITY Physical Exam Vital Signs: Temp Pulse Resp BP Pulse Ox 98.4 F 93 18 107/64 94 10/05/17 08:00 10/05/17 08:00 10/05/17 08:00 10/05/17 08:00 10/05/17 08:00 Intake & Output 10/04/17 10/05/17 10/06/17 06:59 06:59 06:59 Intake Total 400 4498 Output Total 500 4625 Balance -100 -127 Weight 132.2 kg 130.6 kg Musculoskeletal exam: PRESENT: other - Moderate to severe cellulitis of the distal legs bilaterally. Chronic fungal infection involving all 10 toe nails; bullae sloughing off uneventfully; no israel pus. Results Laboratory Results: 10/05/17 07:19 10/05/17 07:19 10/04/17 10/04/17 10/05/17 06:10 16:38 05:00 WBC RBC Hgb Hct MCV MCH MCHC RDW Plt Count Sodium Potassium Chloride Carbon Dioxide Anion Gap BUN Creatinine Est GFR ( Amer) Est GFR (Non-Af Amer) Glucose Calcium C-Reactive Protein 80.5 H TSH Urine Color STRAW YELLOW Urine Appearance CLEAR CLEAR Urine pH 6.0 6.0 Ur Specific [place] 1.005 1.018 Urine Protein NEGATIVE NEGATIVE Urine Glucose (UA) NEGATIVE NEGATIVE Urine Ketones NEGATIVE NEGATIVE Urine Blood SMALL H MODERATE H Urine Nitrite NEGATIVE NEGATIVE Ur Leukocyte Esterase NEGATIVE NEGATIVE Urine WBC (Auto) 0 6 Urine RBC (Auto) 1 31 10/05/17 10/05/17 10/05/17 07:19 07:19 07:19 WBC 9.3 RBC 4.02 Hgb 11.0 L Hct 34.1 L MCV 85 MCH 27.4 MCHC 32.3 RDW 16.4 H Plt Count 375 Sodium 142.5 Potassium 4.8 Chloride 107 Carbon Dioxide 29 Anion Gap 7 BUN 14 Creatinine 0.71 Est GFR ( Amer) > 60 Est GFR (Non-Af Amer) > 60 Glucose 97 Calcium 9.1 C-Reactive Protein TSH 2.66 Urine Color Urine Appearance Urine pH Ur Specific [place] Urine Protein Urine Glucose (UA) Urine Ketones Urine Blood Urine Nitrite Ur Leukocyte Esterase Urine WBC (Auto) Urine RBC (Auto) 10/04/17 06:10 NT-Pro-B Natriuret Pep 321 Impressions: Chest X-Ray 10/03/17 20:52 IMPRESSION: Subsegmental atelectasis at the right midlung. Blunting of the left costophrenic angle with airspace opacity at the left lung base, may be secondary to a small left pleural effusion with adjacent atelectasis or pneumonia. Followup with PA and lateral views recommended when patient's condition allows. Chest/Abdomen CTA 10/04/17 00:00 IMPRESSION: 1. No pulmonary embolus. There may be pulmonary arterial hypertension, however. 2. Marked cardiomegaly. Small right pleural effusion. 3. Motion artifact and lung changes as above. Suspect some of this represents mild edema related to CHF. Assessment & Plan - Diagnosis (1) Lower extremity cellulitis Qualifiers: Laterality: right Qualified Code(s): L03.115 - Cellulitis of right lower limb Is this a current diagnosis for this admission?: Yes Plan: Assessment: Patient's lower extremity cellulitis bulla appears improved; most of the sloughing. There is no indication for formal surgical debridement. Recommendations: 1. We will start dressing changes with soapy water, Xeroform and Uriel wrap. 2. Patient may be out of bed, as tolerated, with legs elevated. 3. Continue intravenous antibiotics.
[2017-10-05] MEDS: NYSTATIN TOPICAL POWDER 15 GM TP SCH ×2 (10:00→18:00)
--- NOTE | 2017-10-05 10:05 | CONSULTATION REPORT E ---
Consultation Report NAME: CHIDI RIVERA : 1955 AGE: 61Y DATE: 10/05/2017 ROOM: 402 A TO: Lara FLEMING M.D. FROM: JIGNESH MONTIEL M.D. Requesting Physician SUMMARY: The patient is a 61-year-old 3, para 3, who was admitted with cellulitis and now apparently has emboli. We were asked to see the patient secondary to her vaginal bleeding. Patient gives a history of not having any bleeding for a number of years and then upon admission had bleeding and passing what she described as clots. She is on no herbal medicine and cannot remember the other meds that she is on at this time. Unable to do her exam secondary to her body habitus and non cooperation. I have asked for a pelvic ultrasound to determine the endometrial thickness and started her on Provera 10 mg daily for 10 days. Her hemoglobin on admission was 11.4, and that was 2 days ago, and today it is 11, so the patient does not have a massive amount of bleeding. If her endometrial thickness is less than 4 then bleeding can be attributed to atrophic endometrium, and if it is greater than 4 she will need additional biopsies done. DICTATING PHYSICIAN: Lara FLEMING M.D. [id number] [facility]#: [id number] ID: [id number] JOB#: [id number] ACCT: [id number] cc:Lara FLEMING M.D. >
[2017-10-05] MEDS: VANCOMYCIN HCL 1,250 MG in DEXTROSE 5%-WATER 250 ML IV SCH ×2 (10:51→22:29)
[2017-10-05] MEDS ORDERED: MEDROXYPROGESTERONE ACET 10 MG TABLET PO ONE (11:30)
--- NOTE | 2017-10-05 12:27 | RADIOLOGY REPORT (SQ) ---
EXAM DESCRIPTION: CT ABD/PELVIS WITH IV ONLY COMPLETED DATE/TIME: 10/05/2017 11:54 am REASON FOR STUDY: vaginal bleeding, micro emboli COMPARISON: Pelvic ultrasound 10/05/2017 CT chest 10/04/2017 TECHNIQUE: CT scan of the abdomen and pelvis performed using helical scanning technique with dynamic intravenous contrast injection. No oral contrast. Images reviewed with lung, soft tissue, and bone windows. Reconstructed coronal and sagittal MPR images reviewed. Delayed images for evaluation of the urinary system also acquired. All images stored on PACS. All CT scanners at this facility use dose modulation, iterative reconstruction, and/or weight based d osing when appropriate to reduce radiation dose to as low as reasonably achievable (ALARA). [facility]: Dose Right [facility]: CareDose [facility]: Dose Right [facility]: Teradose 4D [facility]: Free[employer]ep[employer] CONTRAST TYPE AND DOSE: contrast/concentration: Isovue 370.00 mg/ml; Total Contrast Delivered: 100.0 ml; Total Saline Delivered: 72.0 ml RENAL FUNCTION: Creatinine 0.71 RADIATION DOSE: CT Rad equipment meets quality standard of care and radiation dose reduction techniq ues were employed. CTDIvol: 25.9 - 29.6 mGy. DLP: 2701 mGy-cm.. LIMITATIONS: None. FINDINGS: LOWER CHEST: Trace right pleural effusion unchanged from CT chest 10/04/2017. Moderate siz e retrocardiac hiatal hernia. Mild cardiomegaly with calcified mitral annulus. LIVER: Normal size. No masses. No dilated ducts. SPLEEN: 15 cm in length. No focal lesions. PANCREAS: No masses. No significant calcifications. No adjacent inflammation or peripancreatic fluid collections. Pancreatic duct not dilated. GALLBLADDER: 3 cm stone in the gallbladder without CT evidence of acute cholecystitis ADRENAL GLANDS: No significant masses or asymmetry. RIGHT KIDNEY AND URETER: No solid masses. No significant calcifications. No hydronephrosis or hyd roureter. LEFT KIDNEY AND URETER: No solid masses. No significant calcifications. No hydronephrosis or hydr oureter. AORTA AND VESSELS: No aneurysm. No dissection. Renal arteries, SMA, celiac without stenosis. RETROPERITONEUM: No retroperitoneal adenopathy, hemorrhage or masses. BOWEL AND PERITONEAL CAVITY: Patient is post ventral hernia repair with mesh and tacks. Along the le ftward lateral edge of the hernia repair, a recurrent defect in the abdominal wall present 6 x 9 cm in diameter. Within a very large left lateral abdominal hernia sac, there is splenic flexure and macie cending colon, majority of the patient's small bowel, and mesenteric fat. No gross CT evidence of eduard wel obstruction. APPENDIX: Not identified uppercase PELVIS: No mass. No free fluid. Normal bladder. Normal size female pelvic organs. Endometrial stri pe difficult to measure ABDOMINAL WALL: As above. 6.5 x 5 cm chronic peripherally calcified fluid collection in the anterior abdominal wall, axial image 65. This is likely old normal prior chronic postsurgical change with ca lcified seroma or hematoma. BONES: Diffuse degenerative changes throughout the lumbar spine OTHER: No other significant finding. IMPRESSION: Left lateral abdominal wall hernia, containing majority of the patient's small bowel and left colon. TECHNICAL DOCUMENTATION: JOB ID: [id number] Quality ID # [id number]: Final reports with documentation of one or more dose reduction techniques (e.g., Au tomated exposure control, adjustment of the mA and/or kV according to patient size, use of iterative reconstruction technique) 2010 [employer]- All Rights Reserved Reading location - IP/workstation name: [email or web address]
--- NOTE | 2017-10-05 12:43 | RADIOLOGY REPORT (SQ) ---
EXAM DESCRIPTION: U/S NON-OB PELVIS TV W/O DOP COMPLETED DATE/TIME: 10/05/2017 12:16 pm REASON FOR STUDY: POSTMENOPAUSAL VAGINAL BLEEDING COMPARISON: CT abdomen and pelvis 10/05/2017 TECHNIQUE: Dynamic and static grayscale images acquired of the pelvis via transvaginal approach and recorded on PACS. Additional selected color Doppler and spectral images recorded. LIMITATIONS: This study is severely limited due to patient body habitus and very limited patient mob ility. FINDINGS: Both transabdominal and endovaginal scanning was performed. Because of patient's large si ze and very limited mobility, we were unable to adequately visualize the uterus. CT today was review ed, sagittal and coronal reconstructions are degraded by patient streak artifact from large body habi tus. Although the uterus is normal size, endometrial stripe cannot be assessed. Ovaries were not visualized by transabdominal or endovaginal scanning IMPRESSION: Nondiagnostic study TECHNICAL DOCUMENTATION: JOB ID: [id number] [employer]- All Rights Reserved Rev-09/11 Reading location - IP/workstation name: [email or web address]
[2017-10-05 14:26] LABS: HEMATOCRIT 36.7 % (36.0-47.0); HEMOGLOBIN 11.8 g/dL (12.0-15.5); MEAN CORPUSCULAR HEMOGLOBIN 27.2 pg (27.0-33.4); MEAN CORPUSCULAR HGB CONC 32.2 g/dL (32.0-36.0); MEAN CORPUSCULAR VOLUME 84 fl (80-97); PLATELET COUNT 380 10^3/uL (150-450); RED BLOOD COUNT 4.35 10^6/uL (3.72-5.28); RED CELL DISTRIBUTION WIDTH 16.6 % (11.5-14.0); WHITE BLOOD COUNT 9.2 10^3/uL (4.0-10.5)
[2017-10-05] MEDS ORDERED: HEPARIN SOD (PORCINE) 1,000 UNIT/ML 10 ML VIAL IV PRN (15:25)
[2017-10-05] MEDS ORDERED: LIDOCAINE 0.5% INJ-PF (5 MG/ML) 50 ML SDV ONE (15:57)
--- NOTE | 2017-10-05 16:08 | XCELERA REPORT ---
[address] [address] Lower Extremity Venous Evaluation Name: CHIDI RIVERA Age: 61 yrs Gender: Female : 1955 Patient Status: Inpatient Patient Location: [address] [place], [place] [address] Study Date: 10/05/2017 09:29 AM Procedure: A bilateral duplex scan of the lower extremity veins was performed. The evaluation included responses to compression and other maneuvers. Reason For Study: leg pin and edema Ordering Physician: JIGNESH MONTIEL Performed By: Abiel Morillo Right Sided Venous Evaluation Study difficult due to body habitus and patient discomfort. Distal Femoral and Popliteal not well seen. Normal vessel filling wall to wall, compression and augmentation as well as Colour flow down to the infrageniculate veins. In the evaluable veins. Left Sided Venous Evaluation Study difficult due to body habitus and patient discomfort. Greater and Small Saphenous veins not well seen. Normal vessel filling wall to wall, compression and augmentation as well as Colour flow down to the infrageniculate veins. In the evaluable veins. Interpretation Summary No duplex evidence of DVT or obstruction in the bilateral lower extremities. Study limited as mentioned. : JIGNESH MONTIEL > Bernabe Win
--- NOTE | 2017-10-05 16:19 | XCELERA REPORT ---
[address] [address] Transthoracic Echocardiogram Report Name: CHIDI RIVERA Age: 61 yrs Gender: Female : 1955 Patient Status: Inpatient Patient Location: [address] [place], [place] [address]A Study Date: 10/05/2017 10:22 AM Procedure: A two-dimensional transthoracic echocardiogram with color flow and Doppler was performed. The study was technically difficult with many images being suboptimal in quality. Reason For Study: ? Endocarditis History: ? Endocarditis. Ordering Physician: SUJATA LOZANO Performed By: Maggie Reardon Interpretation Summary The left ventricle is normal in size. There is normal left ventricular wall thickness. LV EF is >60% Left ventricular systolic function is normal. Doppler measurements suggest normal left ventricular diastolic function The left ventricular wall motion is normal. The left atrial size is normal. There is no mitral valve stenosis. There is no evidence of mitral valve prolapse. There is no vegetation seen on the mitral valve. There is a mild amount of mitral regurgitation There is no aortic valve stenosis There is no LVOT obstruction. No aortic regurgitation is present. There is no tricuspid stenosis. There is moderate pulmonary hypertension by echo RVSP is 54 to 59 mm of Hg , with RA mean of 5 to 10. There is a trace amount of pulmonic regurgitation There is no pericardial effusion. RECOMMEND KIAN. MMode/2D Measurements & Calculations RVDd: 3.6 cm LVIDd: 5.1 cmFS: 19.6 % Ao root diam: 2.3 cm IVSd: 1.1 cm LVIDs: 4.1 cmEDV(Teich): 122.6 ml Ao root area: 4.2 cm2 LVPWd: 1.2 cmESV(Teich): 73.4 ml EF(Teich): 40.1 % LVOT diam: 1.6 cm LVOT area: 2.0 cm2 Doppler Measurements & Calculations MV E max omaira: MV dec slope: Ao V2 max: LV V1 max P.1 cm/sec 220.6 cm/sec 10.0 mmHg MV A max omaira: 289.0 cm/sec2 Ao max PG: LV V1 max: 143.3 cm/sec MV dec time: 19.5 mmHg 158.2 cm/sec MV E/A: 0.80 0.40 sec Ao V2 mean: 137.0 cm/sec Ao mean P.1 mmHg Ao V2 VTI: 34.9 cm NOHEMI(V,D): 1.4 cm2 PA V2 max: TR max omaira: 129.3 cm/sec 333.5 cm/sec PA max P.8 mmHgTR max P.5 mmHg Left Ventricle The left ventricle is normal in size. There is normal left ventricular wall thickness. LV EF is >60%. Left ventricular systolic function is normal. Doppler measurements suggest normal left ventricular diastolic function. The left ventricular wall motion is normal. There is no thrombus. Right Ventricle The right ventricle is not well visualized secondary to technical limitations. Atria The right atrium is normal. The left atrial size is normal. Mitral Valve There is no evidence of mitral valve prolapse. There is no vegetation seen on the mitral valve. There is no mitral valve stenosis. There is a mild amount of mitral regurgitation. Aortic Valve There is no aortic valvular vegetation. There is no aortic valve stenosis. There is no LVOT obstruction. No aortic regurgitation is present. Tricuspid Valve There is no tricuspid stenosis. There is a mild amount of tricuspid regurgitation. There is moderate pulmonary hypertension by echo. RVSP is 54 to 59 mm of Hg , with RA mean of 5 to 10. Pulmonic Valve There is no pulmonic valvular stenosis. There is a trace amount of pulmonic regurgitation. Great Vessels The aortic root is not well visualized. Effusions There is no pericardial effusion. RECOMMEND KIAN. : SUJATA LOZANO > Magui Valderrama
--- NOTE | 2017-10-05 17:44 | Operative Report ---
Operative Report DATE OF SURGERY: 10/05/17 PREOPERATIVE DIAGNOSIS: Sepsis; cellulitis lower extremities POSTOPERATIVE DIAGNOSIS: Same OPERATION: 1. Focused ultrasound of the right neck. 2. Ultrasound directed insertion of triple-lumen central venous access catheter. 3. Interpretation of portable chest x-ray SURGEON: MIGUEL IVERSON ANESTHESIA: Local TISSUE REMOVED OR ALTERED: None COMPLICATIONS: None ESTIMATED BLOOD LOSS: Scant INTRAOPERATIVE FINDINGS: See below PROCEDURE: Informed consent was obtained. The patient was placed in Trendelenburg the right neck and chest wall were exposed, and prepped and draped in a sterile fashion. Surgical plan and surgical timeout discussed. Of note the patient was anticoagulated with heparin. The heparin drip was discontinued prior to the insertion of the catheter The right neck was anesthetized with 1% lidocaine without epinephrine. Using the variable frequency linear transducer, real time, a 18-gauge needle and wire were threaded into the right internal jugular vein. This was a very deep central line. The tract was dilated up, the dilator removed, and the triple- lumen central venous access catheter was threaded into the right internal jugular vein uneventfully to the hub. There was excellent aspiration and flush of saline through all 3 lumens. The catheter was affixed to the skin with a Biopatch and 2-0 silk suture; sterile dressing applied. The patient tolerated the procedure well. There were no complications. Portable upright chest x-ray straight tip of the catheter in the right atrium. No evidence of pneumothorax. Results of the study showed with the nursing staff.
--- NOTE | 2017-10-05 17:45 | PDOC PROGRESS REPORT ---
Subjective Progress Note for:: 10/05/17 Subjective:: The patient is a 61-year-old female with past medical history significant for morbid obesity, bilateral venous stasis, hypertension, peripheral vascular disease, sleep apnea, arthritis, and chronic cellulitis of the right lower extremity followed by wound care clinic who was admitted on 10/04/17 for worsening lower extremity cellulitis. Patient is seen on morning rounds with Dr. Mitchell. She is found resting in bed on supplemental oxygen via nasal cannula 2 L/min. She appears to be mildly dyspneic at rest, but is fully conversational and denies discomfort. She provides a vague history and is unable to answer most questions. She endorses vaginal bleeding overnight. She states that she cannot remember when she last had vaginal bleeding prior to her admission, however ED provider's note indicates that this may be an ongoing issue. Otherwise, her primary concern is pain to her hips and bilateral lower extremities related to movement. She denies fever, chills, malaise, chest pain, palpitations, dyspnea, orthopnea , abdominal pain, nausea, vomiting, diarrhea and constipation. Reason For Visit: CELLULITIS MORBID OBESITY Physical Exam Vital Signs: Temp Pulse Resp BP Pulse Ox 98.4 F 93 17 107/64 94 10/05/17 08:00 10/05/17 11:04 10/05/17 11:04 10/05/17 08:00 10/05/17 08:00 Intake & Output 10/04/17 10/05/17 10/06/17 06:59 06:59 06:59 Intake Total 400 4498 Output Total 500 4625 Balance -100 -127 Weight 132.2 kg 130.6 kg General appearance: PRESENT: disheveled, mild distress, morbidly obese, well- developed, well-nourished Head exam: PRESENT: atraumatic, normocephalic Eye exam: PRESENT: conjunctiva pink, EOMI, PERRLA. ABSENT: scleral icterus Ear exam: PRESENT: normal external ear exam Mouth exam: PRESENT: moist, tongue midline Neck exam: ABSENT: carotid bruit, JVD, lymphadenopathy, thyromegaly Respiratory exam: PRESENT: decreased breath sounds - Basilar secondary to body habitus and inspiratory effort; no obvious adventitious lung sounds auscultated , symmetrical, tachypnea - Shallow, other - Supplemental oxygen via nasal cannula. ABSENT: rales, rhonchi, wheezes Cardiovascular exam: PRESENT: RRR, +S1, +S2. ABSENT: diastolic murmur, rubs, systolic murmur Pulses: PRESENT: normal dorsalis pedis pul Vascular exam: PRESENT: normal capillary refill GI/Abdominal exam: PRESENT: hernia - multiple per patient, mass - Centerally located, distal to umbilicus, 5 cm round, firm mass no tenderness. Slightly smaller mass suprapubically., normal bowel sounds, soft. ABSENT: distended, guarding, organolmegaly - Unable to palpate secondary to body habitus, rebound, tenderness Rectal exam: PRESENT: deferred Extremities exam: ABSENT: calf tenderness, clubbing, full ROM - secondary to pain, pedal edema Musculoskeletal exam: ABSENT: ambulatory - ambulatory with walker at baseline Neurological exam: PRESENT: alert, awake, oriented to person, oriented to place , oriented to time, oriented to situation, CN II-XII grossly intact, other - Forgetful. ABSENT: motor sensory deficit Psychiatric exam: PRESENT: appropriate affect, normal mood, other - tearful. ABSENT: homicidal ideation, suicidal ideation Skin exam: PRESENT: dry, warm, other - RLE erythema beginning just distal to the knee and extending to the dorsum of her foot. +3 nonpitting edema bilaterally. Numerous hemorrhagic bullae to the dorsum of bilateral feet and toes; begining to slough without drainage. Tender subcutaneous ecchymotic lesions to the plantar surfaces of her feet. Numerous small hemorrhagic bullae to posterior left knee. Two hemorrhagic bullae noted to the posterior left hand , subcutaneous ecchymotic lesions to the palmar surface of bilateral hands. Chronic fungal infection to all toes.. ABSENT: cyanosis, rash Results Laboratory Results: 10/05/17 14:09 10/05/17 07:19 10/05/17 10/05/17 10/05/17 05:00 07:19 07:19 WBC 9.3 RBC 4.02 Hgb 11.0 L Hct 34.1 L MCV 85 MCH 27.4 MCHC 32.3 RDW 16.4 H Plt Count 375 Sodium 142.5 Potassium 4.8 Chloride 107 Carbon Dioxide 29 Anion Gap 7 BUN 14 Creatinine 0.71 Est GFR ( Amer) > 60 Est GFR (Non-Af Amer) > 60 Glucose 97 Calcium 9.1 TSH Urine Color YELLOW Urine Appearance CLEAR Urine pH 6.0 Ur Specific [place] 1.018 Urine Protein NEGATIVE Urine Glucose (UA) NEGATIVE Urine Ketones NEGATIVE Urine Blood MODERATE H Urine Nitrite NEGATIVE Ur Leukocyte Esterase NEGATIVE Urine WBC (Auto) 6 Urine RBC (Auto) 31 10/05/17 10/05/17 07:19 14:09 WBC 9.2 RBC 4.35 Hgb 11.8 L Hct 36.7 MCV 84 MCH 27.2 MCHC 32.2 RDW 16.6 H Plt Count 380 Sodium Potassium Chloride Carbon Dioxide Anion Gap BUN Creatinine Est GFR ( Amer) Est GFR (Non-Af Amer) Glucose Calcium TSH 2.66 Urine Color Urine Appearance Urine pH Ur Specific [place] Urine Protein Urine Glucose (UA) Urine Ketones Urine Blood Urine Nitrite Ur Leukocyte Esterase Urine WBC (Auto) Urine RBC (Auto) 10/04/17 06:10 NT-Pro-B Natriuret Pep 321 Impressions: Chest X-Ray 10/03/17 20:52 IMPRESSION: Subsegmental atelectasis at the right midlung. Blunting of the left costophrenic angle with airspace opacity at the left lung base, may be secondary to a small left pleural effusion with adjacent atelectasis or pneumonia. Followup with PA and lateral views recommended when patient's condition allows. Chest/Abdomen CTA 10/04/17 00:00 IMPRESSION: 1. No pulmonary embolus. There may be pulmonary arterial hypertension, however. 2. Marked cardiomegaly. Small right pleural effusion. 3. Motion artifact and lung changes as above. Suspect some of this represents mild edema related to CHF. Transvaginal US 10/05/17 00:00 IMPRESSION: Nondiagnostic study Abdomen/Pelvis CT 10/05/17 08:29 IMPRESSION: Left lateral abdominal wall hernia, containing majority of the patient's small bowel and left colon. Assessment & Plan - Diagnosis (1) Lower extremity cellulitis Qualifiers: Laterality: right Qualified Code(s): L03.115 - Cellulitis of right lower limb Is this a current diagnosis for this admission?: Yes Plan: Bilateral lower leg cellulitis; appearance is most suspicious for showering micro emboli. The patient has numerous hemorrhagic bullae to bilateral feet, toes, posterior left knee, posterior left hand that are begining to slough. Tender subcutaneous ecchymotic lesion to the plantar portion of bilateral feet and palmar surfaces of hands (appearance suggestive of Osler nodes). Differential includes dermatitis, vibrio, necrotizing fasciitis, vasculitis, and embolic skin lesions. Leukocytosis has resolved. Patient remains afebrile. Arterial studdy (LLE) demonstrates 20-49% stenosis at infrageniculate level. Venous doppler is limited but does not positively identify DVT to either leg. Blood cultures have no growth to date. Echocardiogram demonstrated normal LVEF without diastolic dysfunction. No cardiac source of embolus identified; recommends KIAN. CT of the abdomen was negative for aortic aneurysm and dissection. Renal arteries, SMA, celiac without stenosis. CT of the chest negative for PE. The patient is admitted to the medical floor on continuous cardiac telemetry. She is supported with IV fluids. She is empirically placed on vancomycin and cefepime. Surgery is consulted; appreciate their expert evaluation and recommendations. Consider steroids (for vasculitis). (2) Skin bulla Is this a current diagnosis for this admission?: Yes Plan: As above. (3) Microembolization Is this a current diagnosis for this admission?: Yes Plan: Appearance of cellulitis with hemorrhagic bullae to most distal areas of extremities (toes, hands and fingers) and Osler nodes concerning for showering micro-emboli. Echocardiogram demonstrated normal LVEF without diastolic dysfunction. No cardiac source of embolus identified; recommends KIAN. CT of the abdomen was negative for aortic aneurysm and dissection. Renal arteries, SMA, celiac without stenosis. CT of the chest negative for PE. Pre-heparin gtt labs: PT 14.3/INR 1.06/PTT 35.3. Fibrinogen 609, D-dimer 14.18 Patient has been placed on Heparin drip. I have contacted the [facility]; endoscopy admissions office was closed and so KIAN was not able to be scheduled today. Demographics has been faxed. [facility] will call back tomorrow to make arrangements. (4) Vagina bleeding Is this a current diagnosis for this admission?: Yes Plan: There is some questionable history to previous episodes of vaginal bleeding managed as an outpatient. Has come to light that the patient has been noncompliant with medication regimen has not had recent [facility] follow-up. After initiating heparin drip, patient experienced one episode of vaginal bleeding Pelvic and abdominal ultrasound was nondiagnostic secondary to body habitus and patient movement. CT of ABD/Pelvis negative for uterine mass; was unable to comment on endometrial lining [facility] has been consulted; appreciate their expert evaluation and recommendations. Have started the patient on Provera. (5) Sleep apnea Is this a current diagnosis for this admission?: Yes Plan: CPAP nightly. (6) Morbid obesity Is this a current diagnosis for this admission?: Yes Plan: Morbid obesity will likely complicate the patient's recovery; worsening sleep apnea, wound healing, and poor mobility placing her at further risk of skin break down, pneumonia, thrombosis. We will evaluate TSH with morning labs. A1c is noted to be 6.2. We will ask the registered dietitian to make recommendations. (7) Tachycardia Is this a current diagnosis for this admission?: Yes Plan: Likely secondary to #1; infection, pain, anxiety. Her rate appears to be trending down with IV fluids and supportive care, now stable in the mid 90s. We will continue to monitor. (8) Leukocytosis Qualifiers: Qualified Code(s): D72.828 - Other elevated white blood cell count Is this a current diagnosis for this admission?: Yes Plan: Secondary to #1. Resolved. Cultures and antibiotics as above. - Time Time Spent with patient: 35 or more minutes Medications reviewed and adjusted accordingly: Yes
[2017-10-05 18:21] LABS: HEMOGLOBIN 11.5 g/dL (12.0-15.5); MEAN CORPUSCULAR HEMOGLOBIN 27.3 pg (27.0-33.4); MEAN CORPUSCULAR HGB CONC 32.9 g/dL (32.0-36.0); MEAN CORPUSCULAR VOLUME 83 fl (80-97); PLATELET COUNT 401 10^3/uL (150-450); RED BLOOD COUNT 4.21 10^6/uL (3.72-5.28)
--- NOTE | 2017-10-05 18:35 | RADIOLOGY REPORT (SQ) ---
EXAM DESCRIPTION: CHEST SINGLE VIEW COMPLETED DATE/TIME: 10/05/2017 5:29 pm REASON FOR STUDY: CENTRAL PLACEMENT COMPARISON: None. EXAM PARAMETERS: NUMBER OF VIEWS: One view. TECHNIQUE: Single frontal radiographic view of the chest acquired. RADIATION DOSE: NA LIMITATIONS: Demographics mismatch warning. FINDINGS: LUNGS AND PLEURA: Mild pulmonary edema. No pneumothorax. MEDIASTINUM AND HILAR STRUCTURES: No masses. Contour normal. HEART AND VASCULAR STRUCTURES: Heart size borderline. Pulmonary edema. BONES: No acute findings. HARDWARE: Right internal jugular catheter has its tip at or near near the right atrium. OTHER: No other significant finding. IMPRESSION: 1. Mild pulmonary edema. 2. No pneumothorax. 3. Catheter placement as described. TECHNICAL DOCUMENTATION: JOB ID: [id number] [employer]- All Rights Reserved Reading location - IP/workstation name: [email or web address]
[2017-10-05 22:26] LABS: VANCOMYCIN,TROUGH 15.9 ug/mL (5.0-20.0)
[2017-10-06] MEDS: KETOROLAC TROMETHAMINE INJ/PF 30 MG/1 ML SDV IV PRN ×2 (01:00→22:18)
[2017-10-06] MEDS: HYDROCODONE/ACETAMINOPHEN 10-325 MG TABLET PO PRN ×4 (01:04→17:43)
[2017-10-06] MEDS: HEPARIN SODIUM,PORCINE/D5W 25,000 UNIT/250 ML RTUINJ IV PRN ×2 (03:06→17:26)
[2017-10-06 03:37] LABS: ANION GAP 9 (5-19); BLOOD UREA NITROGEN 13 mg/dL (7-20); CALCIUM 9.1 mg/dL (8.4-10.2); CARBON DIOXIDE 29 mmol/L (22-30); CHLORIDE 104 mmol/L (98-107); GLUCOSE 107 mg/dL (75-110); POTASSIUM 4.7 mmol/L (3.6-5.0); SODIUM 141.8 mmol/L (137-145)
[2017-10-06 03:52] LABS: HEMATOCRIT 35.3 % (36.0-47.0); HEMOGLOBIN 11.4 g/dL (12.0-15.5); MEAN CORPUSCULAR HEMOGLOBIN 27.1 pg (27.0-33.4); MEAN CORPUSCULAR HGB CONC 32.4 g/dL (32.0-36.0); MEAN CORPUSCULAR VOLUME 84 fl (80-97); PLATELET COUNT 401 10^3/uL (150-450); RED BLOOD COUNT 4.23 10^6/uL (3.72-5.28); RED CELL DISTRIBUTION WIDTH 16.3 % (11.5-14.0); WHITE BLOOD COUNT 10.5 10^3/uL (4.0-10.5)
[2017-10-06] MEDS: DOCUSATE SODIUM 100 MG CAPSULE PO SCH ×2 (11:26→17:26)
[2017-10-06] MEDS: NORMAL SALINE 1000 ML 1,000 ML IV PRN ×2 (11:28→22:14)
--- NOTE | 2017-10-06 12:02 | PDOC PROGRESS REPORT ---
Subjective Progress Note for:: 10/06/17 Subjective:: Feels better. Less leg pain. Reason For Visit: CELLULITIS MORBID OBESITY Physical Exam Vital Signs: Temp Pulse Resp BP Pulse Ox 97.6 F 91 16 146/80 H 91 L 10/06/17 08:01 10/06/17 11:35 10/06/17 11:35 10/06/17 07:48 10/06/17 07:48 Intake & Output 10/05/17 10/06/17 10/07/17 06:59 06:59 06:59 Intake Total 4498 5514 Output Total 4625 8925 Balance -127 2989 Weight 130.6 kg 134.6 kg General appearance: PRESENT: no acute distress, cooperative Extremities exam: PRESENT: other - Right lower leg with diffuse erythema. Bilateral feet with a mild diffuse erythema with multiple blisters. Palpable pulses. Results Laboratory Results: 10/06/17 03:30 10/06/17 02:00 10/05/17 10/05/17 10/05/17 14:09 18:10 21:15 WBC 9.2 11.0 H RBC 4.35 4.21 Hgb 11.8 L 11.5 L Hct 36.7 35.0 L MCV 84 83 MCH 27.2 27.3 MCHC 32.2 32.9 RDW 16.6 H 16.0 H Plt Count 380 401 Sodium Potassium Chloride Carbon Dioxide Anion Gap BUN Creatinine 0.65 Est GFR ( Amer) > 60 Est GFR (Non-Af Amer) > 60 Glucose Calcium 10/06/17 10/06/17 02:00 03:30 WBC 10.5 RBC 4.23 Hgb 11.4 L Hct 35.3 L MCV 84 MCH 27.1 MCHC 32.4 RDW 16.3 H Plt Count 401 Sodium 141.8 Potassium 4.7 Chloride 104 Carbon Dioxide 29 Anion Gap 9 BUN 13 Creatinine 0.68 Est GFR ( Amer) > 60 Est GFR (Non-Af Amer) > 60 Glucose 107 Calcium 9.1 10/04/17 06:10 NT-Pro-B Natriuret Pep 321 Impressions: Chest/Abdomen CTA 10/04/17 00:00 IMPRESSION: 1. No pulmonary embolus. There may be pulmonary arterial hypertension, however. 2. Marked cardiomegaly. Small right pleural effusion. 3. Motion artifact and lung changes as above. Suspect some of this represents mild edema related to CHF. Chest X-Ray 10/05/17 00:00 IMPRESSION: 1. Mild pulmonary edema. 2. No pneumothorax. 3. Catheter placement as described. Transvaginal US 10/05/17 00:00 IMPRESSION: Nondiagnostic study Abdomen/Pelvis CT 10/05/17 08:29 IMPRESSION: Left lateral abdominal wall hernia, containing majority of the patient's small bowel and left colon. Assessment & Plan - Diagnosis (1) Chronic venous insufficiency Is this a current diagnosis for this admission?: Yes (2) Lower extremity cellulitis Qualifiers: Laterality: right Qualified Code(s): L03.115 - Cellulitis of right lower limb Is this a current diagnosis for this admission?: Yes Plan: Mostly on the right leg but bilateral feet with involvement but appears to be improving with antibiotics. Keep legs elevated. Would not debride her small blisters. I do not see any role for surgical involvement at this time.
[2017-10-06] MEDS: CEFEPIME 1 GM/D5W RTU 1 GM/50 ML RTUPB IV SCH ×2 (12:08→22:13)
[2017-10-06] MEDS: MEDROXYPROGESTERONE ACET 10 MG TABLET PO SCH (12:12)
[2017-10-06] MEDS: NYSTATIN TOPICAL POWDER 15 GM TP SCH ×2 (12:12→17:27)
[2017-10-06] MEDS: VANCOMYCIN HCL 1,250 MG in DEXTROSE 5%-WATER 250 ML IV SCH ×2 (12:42→22:13)
[2017-10-06 14:14] LABS: HEMATOCRIT 35.6 % (36.0-47.0); HEMOGLOBIN 11.5 g/dL (12.0-15.5); MEAN CORPUSCULAR HGB CONC 32.3 g/dL (32.0-36.0); MEAN CORPUSCULAR VOLUME 83 fl (80-97); PLATELET COUNT 399 10^3/uL (150-450); RED BLOOD COUNT 4.27 10^6/uL (3.72-5.28); RED CELL DISTRIBUTION WIDTH 16.2 % (11.5-14.0); WHITE BLOOD COUNT 9.8 10^3/uL (4.0-10.5)
--- NOTE | 2017-10-06 16:14 | PDOC PROGRESS REPORT ---
Subjective Progress Note for:: 10/06/17 Subjective:: This 61-year-old poorly conditioned patient presents to the hospital with worsening lower extremity cellulitis. She does have a history of bilateral venous stasis, peripheral vascular disease as well as chronic cellulitis of the right lower extremities. She also gives a history of vaginal bleeding intermittently for months which according to her has been evaluated by a sweeper brush maker machine for which she is on treatment. He has been seen by general surgery due to the cellulitis and no surgical intervention is warranted a planned possible micro-emboli due to numerous hemorrhagic bullae to lower extremities as well as left hand. Doppler studies have been done which was somewhat limited but reveals no evidence of definite thromboembolism. Arterial study demonstrates 20-49% stenosis and echocardiogram reveals no evidence of cardioembolic source. CT of the abdomen as well as CTA generally negative. Patient is currently on vancomycin and cefepime. She is awaiting transfer to [facility] for transesophageal echocardiogram. This was not done today and has been postponed to October 08. Reason For Visit: CELLULITIS MORBID OBESITY Physical Exam Vital Signs: Temp Pulse Resp BP Pulse Ox 97.7 F 102 H 22 H 142/81 H 93 10/06/17 12:00 10/06/17 12:00 10/06/17 12:00 10/06/17 12:00 10/06/17 12:00 Intake & Output 10/05/17 10/06/17 10/07/17 06:59 06:59 06:59 Intake Total 4498 5514 Output Total 4625 2525 Balance -127 2989 Weight 130.6 kg 134.6 kg General appearance: PRESENT: no acute distress, morbidly obese, well-developed, well-nourished Head exam: PRESENT: atraumatic, normocephalic Eye exam: PRESENT: conjunctiva pink, EOMI, PERRLA. ABSENT: scleral icterus Ear exam: PRESENT: normal external ear exam Mouth exam: PRESENT: moist, tongue midline Neck exam: ABSENT: carotid bruit, JVD, lymphadenopathy, thyromegaly Respiratory exam: PRESENT: clear to auscultation shari. ABSENT: rales, rhonchi, wheezes Cardiovascular exam: PRESENT: RRR. ABSENT: diastolic murmur, rubs, systolic murmur Pulses: PRESENT: normal dorsalis pedis pul Vascular exam: PRESENT: normal capillary refill GI/Abdominal exam: PRESENT: normal bowel sounds, soft. ABSENT: distended, guarding, mass, organolmegaly, rebound, tenderness Rectal exam: PRESENT: deferred Extremities exam: PRESENT: pedal edema, tenderness - generalized. ABSENT: calf tenderness, clubbing Neurological exam: PRESENT: alert, awake, oriented to person, oriented to place , oriented to time, oriented to situation, CN II-XII grossly intact. ABSENT: motor sensory deficit Psychiatric exam: PRESENT: appropriate affect, normal mood. ABSENT: homicidal ideation, suicidal ideation Skin exam: PRESENT: abrasion, dry, rash, skin tears, vesicles, warm, other - blister, bullae chronic skin changes. ABSENT: cyanosis Results Laboratory Results: 10/06/17 13:25 10/06/17 02:00 10/05/17 10/05/17 10/06/17 18:10 21:15 02:00 WBC 11.0 H RBC 4.21 Hgb 11.5 L Hct 35.0 L MCV 83 MCH 27.3 MCHC 32.9 RDW 16.0 H Plt Count 401 Sodium 141.8 Potassium 4.7 Chloride 104 Carbon Dioxide 29 Anion Gap 9 BUN 13 Creatinine 0.65 0.68 Est GFR ( Amer) > 60 > 60 Est GFR (Non-Af Amer) > 60 > 60 Glucose 107 Calcium 9.1 10/06/17 10/06/17 03:30 13:25 WBC 10.5 9.8 RBC 4.23 4.27 Hgb 11.4 L 11.5 L Hct 35.3 L 35.6 L MCV 84 83 MCH 27.1 27.0 MCHC 32.4 32.3 RDW 16.3 H 16.2 H Plt Count 401 399 Sodium Potassium Chloride Carbon Dioxide Anion Gap BUN Creatinine Est GFR ( Amer) Est GFR (Non-Af Amer) Glucose Calcium 10/04/17 06:10 NT-Pro-B Natriuret Pep 321 Impressions: Chest/Abdomen CTA 10/04/17 00:00 IMPRESSION: 1. No pulmonary embolus. There may be pulmonary arterial hypertension, however. 2. Marked cardiomegaly. Small right pleural effusion. 3. Motion artifact and lung changes as above. Suspect some of this represents mild edema related to CHF. Chest X-Ray 10/05/17 00:00 IMPRESSION: 1. Mild pulmonary edema. 2. No pneumothorax. 3. Catheter placement as described. Transvaginal US 10/05/17 00:00 IMPRESSION: Nondiagnostic study Abdomen/Pelvis CT 10/05/17 08:29 IMPRESSION: Left lateral abdominal wall hernia, containing majority of the patient's small bowel and left colon. Assessment & Plan - Time Time Spent with patient: 15-24 minutes Medications reviewed and adjusted accordingly: Yes Anticipated discharge: Other - [facility] for KIAN on October 08 - Inpatient Certification Based on my medical assessment, after consideration of the patient's comorbidities, presenting symptoms, or acuity I expect that the services needed warrant INPATIENT care.: Yes Medical Necessity: Need For Continuous Telemetry Monitoring, Need for IV Antibiotics - Plan Summary Plan Summary: Patient continues to complain of generalized pain. There is concern for bacterial endocarditis spread of emboli Lower extremity cellulitis currently on broad-spectrum antibiotics. There is concern for embolization which raises the possibility of bacterial endocarditis. Blood cultures have been negative. 2. Patient has some physical characteristics of a possible endocarditis 3. Vagina bleeding which patient tells me it has been going on for a while and she actually has been seen by a STATISTICAL PROGRAMMER ANALYST as outpatient. As she is on heparin drip requested that a close eye kept on her in times of the bleeding and to notify our nursing staff immediately as needed. Patient was seen by STATISTICAL PROGRAMMER ANALYST and she has been placed on Provera. 4. Morbid obesity likely will be complicated and factor for patient's recovery with potential adverse effects including venous thromboembolism, pneumonia, physical deconditioning, poor wound healing 5. Leukocytosis resolved 6. Plan is for outpatient transfer to [facility] for KIAN on October 08 and for her to be returned back to the hospital same day. She will be made n.p.o. after midnight of the and to have discussed with the nursing staff to make appropriate arrangements for patient transfer for procedure.
[2017-10-06] MEDS: LACTULOSE SYRUP 20 GM/30 ML UDCUP PO PRN (17:44)
--- NOTE | 2017-10-06 18:15 | Progress Note ---
Provider Note Provider Note: ID Consult Note Asked by Pharmacy to review patient's chart. Pt not seen or examined. Ms. Pacheco is a 61 year old woman who is morbidly obese and also has a PMH including chronic venous insufficiency. She presented on 10/04/17 with c/o 2 day history of erythema and swelling in the right leg and pain in both feet with blisters developing bilaterally. According to the H&P, Ms. Pacheco was given a prescription as an outpatient by [facility]. Her home medication list includes doxycycline. She denied having any seafood or water exposure. She was documented as having 2+ edema and erythema to the mid-thigh on her right leg with blisters on her toes without any open ulcers or evidence for abscess or purulence. Purpuric lesions were described involving both feet L>R. She did not have a fever or a murmur. Initial labs included leukocytosis of 14k. Blood cultures were obtained, which have yielded no growth in the past 48h. Empirically cefepime and vancomycin were started, and surgical consultation was sought due to concerns for necrotizing fasciitis or compartment syndrome. No indication for surgical intervention was found. The impression of the patient's surgeon was that the patient likely had cellulitis of her right leg superimposed on chronic venous changes in bilateral lower extremities and that she might also have had purpuric lesions as a result of an embolic shower. Imaging studies have included CTA, which was not optimized for visualization of aorta, TTE with suboptimal views, and Doppler ultrasound of the lower extremities that did not show a DVT. Impression/Recommendations A question of endocarditis has been raised due to the appearance of her skin lesions, whether these lesions are due to otherwise unexplained emboli. She is scheduled to have a KIAN to better evaluate whether a cardioembolic source is present. If the patient has no evidence of infective endocarditis found, antibiotic therapy should be aimed at treating her right lower extremity cellulitis and could be completed with IV Ancef 2g q 8h considering the lack of suggestive exposures for GNR organisms and lack of purulence that would signal a need for anti-MRSA activity. Jayce Calderon MD, [facility] Infectious Diseases pager [phone]
[2017-10-07] MEDS: HYDROCODONE/ACETAMINOPHEN 10-325 MG TABLET PO PRN ×4 (02:23→21:38)
[2017-10-07 06:03] LABS: HEMATOCRIT 34.9 % (36.0-47.0); HEMOGLOBIN 11.3 g/dL (12.0-15.5); MEAN CORPUSCULAR HEMOGLOBIN 27.1 pg (27.0-33.4); MEAN CORPUSCULAR HGB CONC 32.4 g/dL (32.0-36.0); MEAN CORPUSCULAR VOLUME 83 fl (80-97); PLATELET COUNT 384 10^3/uL (150-450); RED BLOOD COUNT 4.19 10^6/uL (3.72-5.28); WHITE BLOOD COUNT 8.5 10^3/uL (4.0-10.5)
[2017-10-07] MEDS: MEDROXYPROGESTERONE ACET 10 MG TABLET PO SCH (10:28)
[2017-10-07] MEDS: CEFEPIME 1 GM/D5W RTU 1 GM/50 ML RTUPB IV SCH ×2 (10:28→21:32)
[2017-10-07] MEDS: DOCUSATE SODIUM 100 MG CAPSULE PO SCH ×2 (10:29→18:34)
[2017-10-07] MEDS: VANCOMYCIN HCL 1,250 MG in DEXTROSE 5%-WATER 250 ML IV SCH ×2 (10:30→21:32)
[2017-10-07] MEDS: HEPARIN SODIUM,PORCINE/D5W 25,000 UNIT/250 ML RTUINJ IV PRN (10:33)
[2017-10-07] MEDS: NYSTATIN TOPICAL POWDER 15 GM TP SCH ×2 (10:35→18:36)
--- NOTE | 2017-10-07 15:54 | PDOC PROGRESS REPORT ---
Subjective Progress Note for:: 10/07/17 Subjective:: This 61-year-old poorly conditioned patient presents to the hospital with worsening lower extremity cellulitis. She does have a history of bilateral venous stasis, peripheral vascular disease as well as chronic cellulitis of the right lower extremities. She also gives a history of vaginal bleeding intermittently for months which according to her has been evaluated by a slip sheeter for which she is on treatment. He has been seen by general surgery due to the cellulitis and no surgical intervention is warranted a planned possible micro-emboli due to numerous hemorrhagic bullae to lower extremities as well as left hand. Doppler studies have been done which was somewhat limited but reveals no evidence of definite thromboembolism. Arterial study demonstrates 20-49% stenosis and echocardiogram reveals no evidence of cardioembolic source. CT of the abdomen as well as CTA generally negative. Patient is currently on vancomycin and cefepime. She is awaiting transfer to [facility] for transesophageal echocardiogram. This has been scheduled for am Reason For Visit: CELLULITIS MORBID OBESITY Physical Exam Vital Signs: Temp Pulse Resp BP Pulse Ox 98.0 F 100 22 H 146/75 H 97 10/07/17 11:05 10/07/17 11:05 10/07/17 11:05 10/07/17 11:05 10/07/17 11:05 Intake & Output 10/06/17 10/07/17 10/08/17 06:59 06:59 06:59 Intake Total 5514 4569 Output Total 2525 975 Balance 2989 3594 Weight 134.6 kg 135.8 kg General appearance: PRESENT: no acute distress, morbidly obese, well-developed, well-nourished Head exam: PRESENT: atraumatic, normocephalic Eye exam: PRESENT: conjunctiva pink, EOMI, PERRLA. ABSENT: scleral icterus Ear exam: PRESENT: normal external ear exam Mouth exam: PRESENT: moist, tongue midline Neck exam: ABSENT: carotid bruit, JVD, lymphadenopathy, thyromegaly Respiratory exam: PRESENT: clear to auscultation shari. ABSENT: rales, rhonchi, wheezes Cardiovascular exam: PRESENT: RRR, systolic murmur. ABSENT: diastolic murmur, rubs Pulses: PRESENT: normal dorsalis pedis pul Vascular exam: PRESENT: normal capillary refill GI/Abdominal exam: PRESENT: normal bowel sounds, soft. ABSENT: distended, guarding, mass, organolmegaly, rebound, tenderness Rectal exam: PRESENT: deferred Extremities exam: PRESENT: full ROM, pedal edema. ABSENT: calf tenderness, clubbing Neurological exam: PRESENT: alert, awake, oriented to person, oriented to place , oriented to time, oriented to situation, CN II-XII grossly intact. ABSENT: motor sensory deficit Psychiatric exam: PRESENT: appropriate affect, normal mood. ABSENT: homicidal ideation, suicidal ideation Skin exam: PRESENT: erythema, rash, warm, other - bullae, blisters on lower extremities, scattered tenderness on hands. ABSENT: cyanosis Results Laboratory Results: 10/07/17 05:50 10/06/17 02:00 10/07/17 05:50 WBC 8.5 RBC 4.19 Hgb 11.3 L Hct 34.9 L MCV 83 MCH 27.1 MCHC 32.4 RDW 16.0 H Plt Count 384 10/04/17 06:10 NT-Pro-B Natriuret Pep 321 Impressions: Chest/Abdomen CTA 10/04/17 00:00 IMPRESSION: 1. No pulmonary embolus. There may be pulmonary arterial hypertension, however. 2. Marked cardiomegaly. Small right pleural effusion. 3. Motion artifact and lung changes as above. Suspect some of this represents mild edema related to CHF. Chest X-Ray 10/05/17 00:00 IMPRESSION: 1. Mild pulmonary edema. 2. No pneumothorax. 3. Catheter placement as described. Transvaginal US 10/05/17 00:00 IMPRESSION: Nondiagnostic study Abdomen/Pelvis CT 10/05/17 08:29 IMPRESSION: Left lateral abdominal wall hernia, containing majority of the patient's small bowel and left colon. Assessment & Plan - Time Time Spent with patient: 15-24 minutes Medications reviewed and adjusted accordingly: Yes Anticipated discharge: Home Within: within 72 hours - Inpatient Certification Based on my medical assessment, after consideration of the patient's comorbidities, presenting symptoms, or acuity I expect that the services needed warrant INPATIENT care.: Yes Medical Necessity: Need for IV Antibiotics - Plan Summary Plan Summary: 1. Lower extremity cellulitis currently on broad-spectrum antibiotics. There is concern for embolization which raises the possibility of bacterial endocarditis. Blood cultures have been negative. ID input noted. Plan is for KIAN at [facility] in am 2. Patient has some physical characteristics of a possible endocarditis 3. Vagina bleeding which patient tells me it has been going on for a while and she actually has been seen by a ENVIRONMENTAL SERVICES AIDE as outpatient. A 4. Morbid obesity likely will be complicated and factor for patient's recovery with potential adverse effects including venous thromboembolism, pneumonia, physical deconditioning, poor wound healing 5. Leukocytosis resolved 6. Plan is for outpatient transfer to [facility] for KIAN on October 08 and for her to be returned back to the hospital same day. She will be made n.p.o. after midnight of the . Nursing staff to make appropriate arrangements for patient transfer for procedure.
[2017-10-07] MEDS ORDERED: ALTEPLASE INJ 2 MG VIAL (CATH CLEARANCE) IV ONE (17:30)
--- NOTE | 2017-10-07 22:33 | PDOC PROGRESS REPORT ---
Subjective Subjective:: This is a 61-year-old female with cellulitis of the right lower extremity and purpuric bulla of bilateral feet. She reports that her pain is improving. She denies any paresthesias or changes to sensation. Denies chest pain, shortness of breath, nausea, vomiting, fevers, chills, blurry vision. Reason For Visit: CELLULITIS MORBID OBESITY Physical Exam Vital Signs: Temp Pulse Resp BP Pulse Ox 98.4 F 98 20 137/72 H 93 10/07/17 20:00 10/07/17 20:00 10/07/17 20:00 10/07/17 20:00 10/07/17 20:00 Intake & Output 10/06/17 10/07/17 10/08/17 06:59 06:59 06:59 Intake Total 5514 4569 1819 Output Total 9065 975 2000 Balance 2989 3594 -181 Weight 134.6 kg 135.8 kg General appearance: PRESENT: morbidly obese Head exam: PRESENT: atraumatic, normocephalic Eye exam: ABSENT: scleral icterus Mouth exam: PRESENT: neck supple Neck exam: ABSENT: tenderness, thyromegaly, tracheal deviation Respiratory exam: PRESENT: decreased breath sounds Pulses: PRESENT: normal radial pulses GI/Abdominal exam: PRESENT: other - Obese. ABSENT: tenderness Extremities exam: PRESENT: +2 edema - Bilateral lower extremities, consistent with chronic venous insufficiency., other - Purpuric rash with bulla on bilateral feet. Neurological exam: PRESENT: alert, awake, oriented to person, oriented to place , oriented to time, oriented to situation, CN II-XII grossly intact. ABSENT: motor sensory deficit Psychiatric exam: ABSENT: agitated, anxious, depressed Skin exam: PRESENT: erythema - Right leg Results Laboratory Results: 10/07/17 05:50 10/06/17 02:00 10/07/17 05:50 WBC 8.5 RBC 4.19 Hgb 11.3 L Hct 34.9 L MCV 83 MCH 27.1 MCHC 32.4 RDW 16.0 H Plt Count 384 10/04/17 06:10 NT-Pro-B Natriuret Pep 321 Impressions: Chest/Abdomen CTA 10/04/17 00:00 IMPRESSION: 1. No pulmonary embolus. There may be pulmonary arterial hypertension, however. 2. Marked cardiomegaly. Small right pleural effusion. 3. Motion artifact and lung changes as above. Suspect some of this represents mild edema related to CHF. Chest X-Ray 10/05/17 00:00 IMPRESSION: 1. Mild pulmonary edema. 2. No pneumothorax. 3. Catheter placement as described. Transvaginal US 10/05/17 00:00 IMPRESSION: Nondiagnostic study Abdomen/Pelvis CT 10/05/17 08:29 IMPRESSION: Left lateral abdominal wall hernia, containing majority of the patient's small bowel and left colon. Assessment & Plan - Diagnosis (1) Chronic venous insufficiency Is this a current diagnosis for this admission?: Yes (2) Arterial embolus of lower extremity Is this a current diagnosis for this admission?: Yes (3) Lower extremity cellulitis Qualifiers: Laterality: right Qualified Code(s): L03.115 - Cellulitis of right lower limb Is this a current diagnosis for this admission?: Yes - Plan Summary Plan Summary: This is a 61-year-old female with right leg cellulitis superimposed over chronic venous insufficiency. She also has a purpuric rash over bilateral feet with bulla formation. Currently, her feet are stable. I do not see any evidence of abscess of the right lower extremity. I would not recommend any surgical intervention at this time. I will continue to follow the patient very closely with you.
[2017-10-07] MEDS ORDERED: HYDROCODONE/ACETAMINOPHEN 10-325 MG TABLET PO ONE (23:30)
[2017-10-08] MEDS: HYDROCODONE/ACETAMINOPHEN 10-325 MG TABLET PO PRN ×4 (03:47→21:43)
[2017-10-08] MEDS: HEPARIN SODIUM,PORCINE/D5W 25,000 UNIT/250 ML RTUINJ IV PRN ×2 (04:28→13:09)
[2017-10-08 06:21] LABS: APPEARANCE,URINE CLEAR; BILIRUBIN,URINE NEGATIVE (NEGATIVE); COLOR,URINE YELLOW; GLUCOSE, URINE NEGATIVE (NEGATIVE); KETONES,URINE NEGATIVE (NEGATIVE); LEUKOCYTE ESTERASE,URINE NEGATIVE (NEGATIVE); NITRITE,URINE NEGATIVE (NEGATIVE); PROTEIN,URINE NEGATIVE (NEGATIVE); URINE SPECIFIC GRAVITY 1.011; UROBILINOGEN,URINE NEGATIVE mg/dL (<2.0)
[2017-10-08] MEDS: KETOROLAC TROMETHAMINE INJ/PF 30 MG/1 ML SDV IV PRN (08:10)
[2017-10-08] MEDS: NYSTATIN TOPICAL POWDER 15 GM TP SCH ×2 (13:11→17:40)
[2017-10-08] MEDS: CEFEPIME 1 GM/D5W RTU 1 GM/50 ML RTUPB IV SCH ×2 (13:20→21:43)
[2017-10-08] MEDS: VANCOMYCIN HCL 1,250 MG in DEXTROSE 5%-WATER 250 ML IV SCH ×2 (17:40→21:43)
[2017-10-08] MEDS: DOCUSATE SODIUM 100 MG CAPSULE PO SCH (17:40)
[2017-10-08] MEDS: MEDROXYPROGESTERONE ACET 10 MG TABLET PO SCH (17:41)
--- NOTE | 2017-10-08 18:18 | PDOC PROGRESS REPORT ---
Subjective Progress Note for:: 10/08/17 Subjective:: This 61-year-old poorly conditioned patient presents to the hospital with worsening lower extremity cellulitis. She does have a history of bilateral venous stasis, peripheral vascular disease as well as chronic cellulitis of the right lower extremities. She also gives a history of vaginal bleeding intermittently for months which according to her has been evaluated by a water fabricator operator for which she is on treatment. He has been seen by general surgery due to the cellulitis and no surgical intervention is warranted a planned possible micro-emboli due to numerous hemorrhagic bullae to lower extremities as well as left hand. Doppler studies have been done which was somewhat limited but reveals no evidence of definite thromboembolism. Arterial study demonstrates 20-49% stenosis and echocardiogram reveals no evidence of cardioembolic source. CT of the abdomen as well as CTA generally negative. Patient is currently on vancomycin and cefepime. Patient went to [facility] today for the KIAN but unfortunately this was not done after evaluation by Dr. Nathan Vaughan states that he did not feel this was indicated. The rationale from our standpoint was that patient had what appeared to be arterial emboli with possible microembolization and KIAN was requested to rule out either a source of septic emboli from endocarditis or other etiology. Patient has had no atrial fibrillation while in hospital. Her trans-thoracic echocardiogram has been negative. Blood cultures have been negative. However was admitted with purpuric lesions of the lower extremity. Patient remains on heparin and at this time it is felt that she probably still needs the KIAN to be done prior to discontinue the heparin. Francisca Zuniga at [phone] may be able to perform that she but I will discuss with the surgeons first prior to rescheduling Reason For Visit: CELLULITIS MORBID OBESITY Physical Exam Vital Signs: Temp Pulse Resp BP Pulse Ox 98.8 F 97 20 118/59 L 93 10/08/17 16:04 10/08/17 16:04 10/08/17 16:04 10/08/17 16:04 10/08/17 16:04 Intake & Output 10/07/17 10/08/17 10/09/17 06:59 06:59 06:59 Intake Total 4569 3129 1233 Output Total 975 3160 1135 Balance 3594 -31 98 Weight 135.8 kg 135.5 kg General appearance: PRESENT: no acute distress, morbidly obese, well-developed, well-nourished Head exam: PRESENT: atraumatic, normocephalic Eye exam: PRESENT: conjunctiva pink, EOMI, PERRLA. ABSENT: scleral icterus Ear exam: PRESENT: normal external ear exam Mouth exam: PRESENT: moist, tongue midline Neck exam: ABSENT: carotid bruit, JVD, lymphadenopathy, thyromegaly Respiratory exam: PRESENT: clear to auscultation shari. ABSENT: rales, rhonchi, wheezes Cardiovascular exam: PRESENT: RRR. ABSENT: diastolic murmur, rubs, systolic murmur Pulses: PRESENT: normal femoral pulses, normal dorsalis pedis pul Vascular exam: PRESENT: normal capillary refill GI/Abdominal exam: PRESENT: normal bowel sounds, soft. ABSENT: distended, guarding, mass, organolmegaly, rebound, tenderness Rectal exam: PRESENT: deferred Extremities exam: PRESENT: calf tenderness, full ROM - Restricted due to pain, tenderness - Generalized, +2 edema. ABSENT: clubbing, pedal edema Musculoskeletal exam: PRESENT: tenderness, other - Bullae especially on the left foot and purpuric lesions on both feet Fluid-filled blisters, tender Neurological exam: PRESENT: alert, awake, oriented to person, oriented to place , oriented to time, oriented to situation, CN II-XII grossly intact. ABSENT: motor sensory deficit Psychiatric exam: PRESENT: appropriate affect, normal mood. ABSENT: homicidal ideation, suicidal ideation Skin exam: PRESENT: dry, intact, warm. ABSENT: cyanosis, rash Results Laboratory Results: 10/07/17 05:50 10/06/17 02:00 10/08/17 05:10 Urine Color YELLOW Urine Appearance CLEAR Urine pH 6.0 Ur Specific [place] 1.011 Urine Protein NEGATIVE Urine Glucose (UA) NEGATIVE Urine Ketones NEGATIVE Urine Blood SMALL H Urine Nitrite NEGATIVE Ur Leukocyte Esterase NEGATIVE Urine WBC (Auto) 8 Urine RBC (Auto) 7 10/04/17 06:10 NT-Pro-B Natriuret Pep 321 Impressions: Chest/Abdomen CTA 10/04/17 00:00 IMPRESSION: 1. No pulmonary embolus. There may be pulmonary arterial hypertension, however. 2. Marked cardiomegaly. Small right pleural effusion. 3. Motion artifact and lung changes as above. Suspect some of this represents mild edema related to CHF. Chest X-Ray 10/05/17 00:00 IMPRESSION: 1. Mild pulmonary edema. 2. No pneumothorax. 3. Catheter placement as described. Transvaginal US 10/05/17 00:00 IMPRESSION: Nondiagnostic study Abdomen/Pelvis CT 10/05/17 08:29 IMPRESSION: Left lateral abdominal wall hernia, containing majority of the patient's small bowel and left colon. Assessment & Plan - Time Time Spent with patient: 25-34 minutes - Including discussion with C [facility] auto bench mechanic Medications reviewed and adjusted accordingly: Yes Anticipated discharge: Home - Inpatient Certification Based on my medical assessment, after consideration of the patient's comorbidities, presenting symptoms, or acuity I expect that the services needed warrant INPATIENT care.: Yes Medical Necessity: Need for IV Antibiotics, Risk of Complication if Not Cared For in Hospital - Plan Summary Plan Summary: 1. Lower extremity cellulitis currently on broad-spectrum antibiotics. There is concern for embolization which raises the possibility of bacterial endocarditis. Blood cultures have been negative. Is also concerned for microembolization. She is still on heparin drip 2. Will plan for KIAN after discussion with surgery 3. Vagina bleeding -patient tells me it has been going on for a while and she actually has been seen by a STAMPING OPERATOR as outpatient. She is on Provera 4. Morbid obesity likely will be complicated and factor for patient's recovery with potential adverse effects including venous thromboembolism, pneumonia, physical deconditioning, poor wound healing 5. Leukocytosis resolved
[2017-10-09] MEDS: KETOROLAC TROMETHAMINE INJ/PF 30 MG/1 ML SDV IV PRN ×2 (00:02→19:40)
[2017-10-09] MEDS: HEPARIN SODIUM,PORCINE/D5W 25,000 UNIT/250 ML RTUINJ IV PRN (04:08)
[2017-10-09] MEDS: HYDROCODONE/ACETAMINOPHEN 10-325 MG TABLET PO PRN ×3 (06:13→16:26)
--- NOTE | 2017-10-09 09:54 | PDOC PROGRESS REPORT ---
Subjective Subjective:: No complaints regarding feet this morning. Reason For Visit: CELLULITIS MORBID OBESITY Physical Exam Vital Signs: Temp Pulse Resp BP Pulse Ox 98.0 F 91 20 149/76 H 94 10/09/17 07:49 10/09/17 07:49 10/09/17 07:49 10/09/17 07:49 10/09/17 07:49 Intake & Output 10/08/17 10/09/17 10/10/17 06:59 06:59 06:59 Intake Total 3129 2835 Output Total 3160 5075 Balance -31 250 Weight 135.5 kg 126 kg General appearance: PRESENT: other - Lots of back and musculoskeletal pain Skin exam: PRESENT: other - Feet examined blisters shriveling up; feet warm; no new lesions Results Laboratory Results: 10/07/17 05:50 10/06/17 02:00 10/04/17 06:10 NT-Pro-B Natriuret Pep 321 Impressions: Chest/Abdomen CTA 10/04/17 00:00 IMPRESSION: 1. No pulmonary embolus. There may be pulmonary arterial hypertension, however. 2. Marked cardiomegaly. Small right pleural effusion. 3. Motion artifact and lung changes as above. Suspect some of this represents mild edema related to CHF. Chest X-Ray 10/05/17 00:00 IMPRESSION: 1. Mild pulmonary edema. 2. No pneumothorax. 3. Catheter placement as described. Transvaginal US 10/05/17 00:00 IMPRESSION: Nondiagnostic study Abdomen/Pelvis CT 10/05/17 08:29 IMPRESSION: Left lateral abdominal wall hernia, containing majority of the patient's small bowel and left colon. Assessment & Plan - Diagnosis (1) Lower extremity cellulitis Qualifiers: Laterality: right Qualified Code(s): L03.115 - Cellulitis of right lower limb Is this a current diagnosis for this admission?: Yes Plan: Overall feet have stabilized, blisters shriveling up; no indication for operative intervention Recommendations 1. Can apply Xeroform to feet and wrap them; blisters can pop on their own; 2. Discussed patient management with primary care team; doubt patient is having ongoing thromboembolic process; consider stopping intravenous heparin and reassess. 3. Will be available for reconsultation as necessary.
[2017-10-09] MEDS: CEFEPIME 1 GM/D5W RTU 1 GM/50 ML RTUPB IV SCH (10:39)
[2017-10-09] MEDS: MEDROXYPROGESTERONE ACET 10 MG TABLET PO SCH (10:49)
[2017-10-09] MEDS: DOCUSATE SODIUM 100 MG CAPSULE PO SCH ×2 (10:49→17:32)
[2017-10-09] MEDS: LACTULOSE SYRUP 20 GM/30 ML UDCUP PO PRN (10:50)
[2017-10-09] MEDS: NYSTATIN TOPICAL POWDER 15 GM TP SCH ×2 (10:51→17:32)
[2017-10-09] MEDS: VANCOMYCIN HCL 1,250 MG in DEXTROSE 5%-WATER 250 ML IV SCH (10:56)
[2017-10-09] MEDS ORDERED: CEFAZOLIN 2 GM/D5W RTU 2 GM/50 ML RTUPB IV SCH (14:00)
[2017-10-09] MEDS: CEFAZOLIN SODIUM 2 GM in NORMAL SALINE 100 ML IV SCH ×2 (14:26→21:31)
[2017-10-09] MEDS: NORMAL SALINE INJ/PF 0.9% 10 ML SDV IV PRN (14:30)
--- NOTE | 2017-10-09 17:07 | PDOC PROGRESS REPORT ---
Subjective Progress Note for:: 10/09/17 Subjective:: This 61-year-old poorly conditioned patient presents to the hospital with worsening lower extremity cellulitis. She does have a history of bilateral venous stasis, peripheral vascular disease as well as chronic cellulitis of the right lower extremities. She also gives a history of vaginal bleeding intermittently for months which according to her has been evaluated by a metal control worker for which she is on treatment. He has been seen by general surgery due to the cellulitis and no surgical intervention is warranted a planned possible micro-emboli due to numerous hemorrhagic bullae to lower extremities as well as left hand. Doppler studies have been done which was somewhat limited but reveals no evidence of definite thromboembolism. Arterial study demonstrates 20-49% stenosis and echocardiogram reveals no evidence of cardioembolic source. CT of the abdomen as well as CTA generally negative. Patient is currently on vancomycin and cefepime. Patient went to [facility] today for the KIAN but unfortunately this was not done after evaluation by Dr. Nathan Vaughan states that he did not feel this was indicated. The rationale from our standpoint was that patient had what appeared to be arterial emboli with possible microembolization and KIAN was requested to rule out either a source of septic emboli from endocarditis or other etiology. Patient has had no atrial fibrillation while in hospital. Her trans-thoracic echocardiogram has been negative. Blood cultures have been negative. However was admitted with purpuric lesions of the lower extremity. Patient remains on heparin and at this time it is felt that she probably still needs the KIAN to be done prior to discontinue the heparin. Francisca Zuniga at [phone] may be able to perform that. I discussed with Dr. Clifford today and the consensus was to dc the heparin and monitor patient. I will also change her antibiotic to Ancef Reason For Visit: CELLULITIS MORBID OBESITY Physical Exam Vital Signs: Temp Pulse Resp BP Pulse Ox 98.9 F 100 20 152/71 H 96 10/09/17 15:23 10/09/17 15:23 10/09/17 15:23 10/09/17 15:23 10/09/17 15:23 Intake & Output 10/08/17 10/09/17 10/10/17 06:59 06:59 06:59 Intake Total 3129 2835 780 Output Total 3160 8455 600 Balance -31 250 180 Weight 135.5 kg 126 kg General appearance: PRESENT: no acute distress, morbidly obese, well-developed, well-nourished Head exam: PRESENT: atraumatic, normocephalic Eye exam: PRESENT: conjunctiva pink, EOMI, PERRLA. ABSENT: scleral icterus Ear exam: PRESENT: normal external ear exam Mouth exam: PRESENT: moist, tongue midline Neck exam: ABSENT: carotid bruit, JVD, lymphadenopathy, thyromegaly Respiratory exam: PRESENT: clear to auscultation shari. ABSENT: rales, rhonchi, wheezes Cardiovascular exam: PRESENT: RRR. ABSENT: diastolic murmur, rubs, systolic murmur Pulses: PRESENT: normal dorsalis pedis pul Vascular exam: PRESENT: normal capillary refill GI/Abdominal exam: PRESENT: normal bowel sounds, soft. ABSENT: distended, guarding, mass, organolmegaly, rebound, tenderness Rectal exam: PRESENT: deferred Extremities exam: PRESENT: +2 edema. ABSENT: calf tenderness, clubbing, pedal edema Musculoskeletal exam: PRESENT: other - less erythema and swelling lower extremities Neurological exam: PRESENT: alert, awake, oriented to person, oriented to place , oriented to time, oriented to situation, CN II-XII grossly intact. ABSENT: motor sensory deficit Psychiatric exam: PRESENT: appropriate affect, normal mood. ABSENT: homicidal ideation, suicidal ideation Skin exam: PRESENT: rash, warm, other - purpuric rash with blisters and fluid filled bullae. ABSENT: cyanosis Results Laboratory Results: 10/07/17 05:50 10/06/17 02:00 10/04/17 06:10 NT-Pro-B Natriuret Pep 321 Impressions: Chest/Abdomen CTA 10/04/17 00:00 IMPRESSION: 1. No pulmonary embolus. There may be pulmonary arterial hypertension, however. 2. Marked cardiomegaly. Small right pleural effusion. 3. Motion artifact and lung changes as above. Suspect some of this represents mild edema related to CHF. Chest X-Ray 10/05/17 00:00 IMPRESSION: 1. Mild pulmonary edema. 2. No pneumothorax. 3. Catheter placement as described. Transvaginal US 10/05/17 00:00 IMPRESSION: Nondiagnostic study Abdomen/Pelvis CT 10/05/17 08:29 IMPRESSION: Left lateral abdominal wall hernia, containing majority of the patient's small bowel and left colon. Assessment & Plan - Time Time Spent with patient: 15-24 minutes Medications reviewed and adjusted accordingly: Yes Anticipated discharge: Home, SNF Within: within 72 hours - Inpatient Certification Based on my medical assessment, after consideration of the patient's comorbidities, presenting symptoms, or acuity I expect that the services needed warrant INPATIENT care.: Yes Medical Necessity: Significant Comorbidiites Make Outpatient Treatment Too Risky , Need for IV Antibiotics, Risk of Complication if Not Cared For in Hospital
[2017-10-09] MEDS ORDERED: ONDANSETRON HCL INJ/PF 4 MG/2 ML SDV IV PRN (19:56)
[2017-10-09] MEDS ORDERED: ONDANSETRON HCL INJ/PF 4 MG/2 ML SDV ONE (19:57)
[2017-10-10] MEDS: CEFAZOLIN SODIUM 2 GM in NORMAL SALINE 100 ML IV SCH ×3 (06:56→22:09)
[2017-10-10] MEDS: HYDROCODONE/ACETAMINOPHEN 10-325 MG TABLET PO PRN ×3 (06:57→20:22)
--- NOTE | 2017-10-10 11:44 | PDOC PROGRESS REPORT ---
Subjective Subjective:: This 61-year-old poorly conditioned patient presents to the hospital with worsening lower extremity cellulitis. She does have a history of bilateral venous stasis, peripheral vascular disease as well as chronic cellulitis of the right lower extremities. She also gives a history of vaginal bleeding intermittently for months which according to her has been evaluated by a account analyst for which she is on treatment. He has been seen by general surgery due to the cellulitis and no surgical intervention is warranted a planned possible micro-emboli due to numerous hemorrhagic bullae to lower extremities as well as left hand. Doppler studies have been done which was somewhat limited but reveals no evidence of definite thromboembolism. Arterial study demonstrates 20-49% stenosis and echocardiogram reveals no evidence of cardioembolic source. CT of the abdomen as well as CTA generally negative. She is off Heparin and currently on Ancef Reason For Visit: CELLULITIS MORBID OBESITY Physical Exam Vital Signs: Temp Pulse Resp BP Pulse Ox 99.0 F 93 18 131/70 H 90 L 10/10/17 07:53 10/10/17 07:53 10/10/17 07:53 10/10/17 07:53 10/10/17 07:53 Intake & Output 10/09/17 10/10/17 10/11/17 06:59 06:59 06:59 Intake Total 2835 3136 Output Total 2585 1800 Balance 250 1336 Weight 126 kg 132.7 kg General appearance: PRESENT: no acute distress, morbidly obese, well-developed, well-nourished Head exam: PRESENT: atraumatic, normocephalic Eye exam: PRESENT: conjunctiva pink, EOMI, PERRLA. ABSENT: scleral icterus Ear exam: PRESENT: normal external ear exam Mouth exam: PRESENT: moist, tongue midline Neck exam: ABSENT: carotid bruit, JVD, lymphadenopathy, thyromegaly Respiratory exam: PRESENT: clear to auscultation shari. ABSENT: rales, rhonchi, wheezes Cardiovascular exam: PRESENT: RRR. ABSENT: diastolic murmur, rubs, systolic murmur Pulses: PRESENT: normal dorsalis pedis pul Vascular exam: PRESENT: normal capillary refill GI/Abdominal exam: PRESENT: normal bowel sounds, soft. ABSENT: distended, guarding, mass, organolmegaly, rebound, tenderness Rectal exam: PRESENT: deferred Extremities exam: PRESENT: full ROM. ABSENT: calf tenderness, clubbing, pedal edema Neurological exam: PRESENT: alert, awake, oriented to person, oriented to place , oriented to time, oriented to situation, CN II-XII grossly intact. ABSENT: motor sensory deficit Psychiatric exam: PRESENT: appropriate affect, normal mood. ABSENT: homicidal ideation, suicidal ideation Skin exam: PRESENT: petechiae, rash, warm, other - Blisters, bullae unchanged. ABSENT: cyanosis Results Laboratory Results: 10/07/17 05:50 10/06/17 02:00 10/04/17 06:10 NT-Pro-B Natriuret Pep 321 Impressions: Chest/Abdomen CTA 10/04/17 00:00 IMPRESSION: 1. No pulmonary embolus. There may be pulmonary arterial hypertension, however. 2. Marked cardiomegaly. Small right pleural effusion. 3. Motion artifact and lung changes as above. Suspect some of this represents mild edema related to CHF. Chest X-Ray 10/05/17 00:00 IMPRESSION: 1. Mild pulmonary edema. 2. No pneumothorax. 3. Catheter placement as described. Transvaginal US 10/05/17 00:00 IMPRESSION: Nondiagnostic study Abdomen/Pelvis CT 10/05/17 08:29 IMPRESSION: Left lateral abdominal wall hernia, containing majority of the patient's small bowel and left colon. Assessment & Plan - Time Time Spent with patient: 15-24 minutes Medications reviewed and adjusted accordingly: Yes Anticipated discharge: Acute Rehab Within: within 48 hours - Inpatient Certification Based on my medical assessment, after consideration of the patient's comorbidities, presenting symptoms, or acuity I expect that the services needed warrant INPATIENT care.: Yes I certify that my determination is in accordance with my understanding of Medicare's requirements for reasonable and necessary INPATIENT services [42 CFR 412.3e].: Yes Medical Necessity: Need for IV Antibiotics, Risk of Complication if Not Cared For in Hospital - Plan Summary Plan Summary: 1. Lower extremity cellulitis currently on broad-spectrum antibiotics. There is concern for embolization which raises the possibility of bacterial endocarditis. Blood cultures have been negative. She is off heparin drip. 2. No Tay indicated at this time 3. Vagina bleeding -resolved 4. Morbid obesity likely will be complicated and factor for patient's recovery with potential adverse effects including venous thromboembolism, pneumonia, physical deconditioning, poor wound healing 5. Leukocytosis resolved 6. Physical deconditioning- PT, encourage ambulation, may need Rehab at [facility]
[2017-10-10] MEDS: NYSTATIN TOPICAL POWDER 15 GM TP SCH ×2 (12:23→18:46)
[2017-10-10] MEDS: MEDROXYPROGESTERONE ACET 10 MG TABLET PO SCH (12:24)
[2017-10-10] MEDS: DOCUSATE SODIUM 100 MG CAPSULE PO SCH ×2 (12:25→18:46)
[2017-10-10] MEDS ORDERED: ENOXAPARIN SODIUM INJ 40 MG/0.4 ML DISP.SYRIN SUBCUT ONE (13:15)
[2017-10-10] MEDS: NORMAL SALINE 1000 ML 1,000 ML IV PRN (16:35)
[2017-10-11] MEDS: HYDROCODONE/ACETAMINOPHEN 10-325 MG TABLET PO PRN ×2 (04:33→09:01)
[2017-10-11] MEDS: CEFAZOLIN SODIUM 2 GM in NORMAL SALINE 100 ML IV SCH ×3 (05:54→22:09)
[2017-10-11 06:54] LABS: ABSOLUTE EOSINOPHILS # (AUTO) 0.6 10^3/uL (0.0-0.6); ABSOLUTE LYMPHOCYTES (AUTO) 0.7 10^3/uL (0.5-4.7); ABSOLUTE NEUT (AUTO) 7.1 10^3/uL (1.7-8.2); BASOPHILS % (AUTO) 0.5 % (0-2); EOSINOPHILS % (AUTO) 6.4 % (0-6); HEMATOCRIT 36.2 % (36.0-47.0); HEMOGLOBIN 11.9 g/dL (12.0-15.5); LYMPHOCYTES % (AUTO) 7.1 % (13-45); MEAN CORPUSCULAR HEMOGLOBIN 27.7 pg (27.0-33.4); MEAN CORPUSCULAR HGB CONC 32.9 g/dL (32.0-36.0); MEAN CORPUSCULAR VOLUME 84 fl (80-97); MONOCYTES % (AUTO) 10.4 % (3-13); PLATELET COUNT 414 10^3/uL (150-450); RED CELL DISTRIBUTION WIDTH 16.2 % (11.5-14.0); SEGMENTED NEUTROPHILS % (AUTO) 75.6 % (42-78); TOTAL CELLS COUNTED % (AUTO) 100 %; WHITE BLOOD COUNT 9.3 10^3/uL (4.0-10.5)
[2017-10-11 07:08] LABS: ANION GAP 10 (5-19); BLOOD UREA NITROGEN 8 mg/dL (7-20); CALCIUM 9.1 mg/dL (8.4-10.2); CARBON DIOXIDE 31 mmol/L (22-30); CHLORIDE 103 mmol/L (98-107); GLUCOSE 103 mg/dL (75-110); POTASSIUM 4.6 mmol/L (3.6-5.0); SODIUM 143.5 mmol/L (137-145)
[2017-10-11] MEDS: DOCUSATE SODIUM 100 MG CAPSULE PO SCH ×2 (09:01→17:17)
[2017-10-11] MEDS: ENOXAPARIN SODIUM INJ 40 MG/0.4 ML DISP.SYRIN SUBCUT SCH (09:02)
[2017-10-11] MEDS: MEDROXYPROGESTERONE ACET 10 MG TABLET PO SCH (09:05)
[2017-10-11] MEDS: NYSTATIN TOPICAL POWDER 15 GM TP SCH (09:06)
--- NOTE | 2017-10-11 12:17 | PDOC PROGRESS REPORT ---
Subjective Progress Note for:: 10/11/17 Subjective:: This 61-year-old poorly conditioned patient presents to the hospital with worsening lower extremity cellulitis. She does have a history of bilateral venous stasis, peripheral vascular disease as well as chronic cellulitis of the right lower extremities. She also gives a history of vaginal bleeding intermittently for months which according to her has been evaluated by a sorter packer for which she is on treatment. He has been seen by general surgery due to the cellulitis and no surgical intervention is warranted a planned possible micro-emboli due to numerous hemorrhagic bullae to lower extremities as well as left hand. Doppler studies have been done which was somewhat limited but reveals no evidence of definite thromboembolism. Arterial study demonstrates 20-49% stenosis and echocardiogram reveals no evidence of cardioembolic source. CT of the abdomen as well as CTA generally negative. She is off Heparin and currently on Ancef. Patient continues to clinically improve Reason For Visit: CELLULITIS MORBID OBESITY Physical Exam Vital Signs: Temp Pulse Resp BP Pulse Ox 97.9 F 88 18 122/66 96 10/11/17 08:00 10/11/17 08:00 10/11/17 08:00 10/11/17 08:00 10/11/17 08:00 Intake & Output 10/10/17 10/11/17 10/12/17 06:59 06:59 06:59 Intake Total 3136 2585 Output Total 1800 1650 Balance 1336 935 Weight 132.7 kg 134.5 kg General appearance: PRESENT: no acute distress, morbidly obese, well-developed, well-nourished Head exam: PRESENT: atraumatic, normocephalic Eye exam: PRESENT: conjunctiva pink, EOMI, PERRLA. ABSENT: scleral icterus Ear exam: PRESENT: normal external ear exam Mouth exam: PRESENT: moist, tongue midline Neck exam: ABSENT: carotid bruit, JVD, lymphadenopathy, thyromegaly Respiratory exam: PRESENT: clear to auscultation shari. ABSENT: rales, rhonchi, wheezes Cardiovascular exam: PRESENT: RRR. ABSENT: diastolic murmur, rubs, systolic murmur Pulses: PRESENT: normal dorsalis pedis pul Vascular exam: PRESENT: normal capillary refill GI/Abdominal exam: PRESENT: normal bowel sounds, soft. ABSENT: distended, guarding, mass, organolmegaly, rebound, tenderness Rectal exam: PRESENT: deferred Extremities exam: PRESENT: full ROM, other - swelling and erythema lower extremities resolving, bullae positive but no new ones noted. ABSENT: calf tenderness, clubbing, pedal edema Neurological exam: PRESENT: alert, awake, oriented to person, oriented to place , oriented to time, oriented to situation, CN II-XII grossly intact. ABSENT: motor sensory deficit Psychiatric exam: PRESENT: appropriate affect, normal mood. ABSENT: homicidal ideation, suicidal ideation Skin exam: PRESENT: dry, warm, other - very sensitive to touch lower extremities. ABSENT: cyanosis, rash Results Laboratory Results: 10/11/17 06:19 10/11/17 06:19 10/11/17 10/11/17 06:19 06:19 WBC 9.3 RBC 4.30 Hgb 11.9 L Hct 36.2 MCV 84 MCH 27.7 MCHC 32.9 RDW 16.2 H Plt Count 414 Seg Neutrophils % 75.6 Lymphocytes % 7.1 L Monocytes % 10.4 Eosinophils % 6.4 H Basophils % 0.5 Absolute Neutrophils 7.1 Absolute Lymphocytes 0.7 Absolute Monocytes 1.0 Absolute Eosinophils 0.6 Absolute Basophils 0.0 Sodium 143.5 Potassium 4.6 Chloride 103 Carbon Dioxide 31 H Anion Gap 10 BUN 8 Creatinine 0.68 Est GFR ( Amer) > 60 Est GFR (Non-Af Amer) > 60 Glucose 103 Calcium 9.1 10/04/17 06:10 NT-Pro-B Natriuret Pep 321 Impressions: Chest/Abdomen CTA 10/04/17 00:00 IMPRESSION: 1. No pulmonary embolus. There may be pulmonary arterial hypertension, however. 2. Marked cardiomegaly. Small right pleural effusion. 3. Motion artifact and lung changes as above. Suspect some of this represents mild edema related to CHF. Chest X-Ray 10/05/17 00:00 IMPRESSION: 1. Mild pulmonary edema. 2. No pneumothorax. 3. Catheter placement as described. Transvaginal US 10/05/17 00:00 IMPRESSION: Nondiagnostic study Abdomen/Pelvis CT 10/05/17 08:29 IMPRESSION: Left lateral abdominal wall hernia, containing majority of the patient's small bowel and left colon. Assessment & Plan - Time Time Spent with patient: 15-24 minutes Medications reviewed and adjusted accordingly: Yes Anticipated discharge: Acute Rehab Within: within 72 hours - Inpatient Certification Based on my medical assessment, after consideration of the patient's comorbidities, presenting symptoms, or acuity I expect that the services needed warrant INPATIENT care.: Yes Medical Necessity: Significant Comorbidiites Make Outpatient Treatment Too Risky , Need for IV Antibiotics - Plan Summary Plan Summary: 1. Lower extremity cellulitis currently on broad-spectrum antibiotics. Patient continues to improve clinically 2. No Tay indicated at this time 3. Vagina bleeding -resolved 4. Morbid obesity likely will be complicated and factor for patient's recovery with potential adverse effects including venous thromboembolism, pneumonia, physical deconditioning, poor wound healing 5. Leukocytosis resolved 6. Physical deconditioning- PT, encourage ambulation, will need Rehab at [facility] 7. Encourage ambulation 8. Start Lyrica due to pain complaints
[2017-10-11] MEDS: PREGABALIN 25 MG CAPSULE PO SCH ×2 (13:27→22:10)
[2017-10-11] MEDS: OXYCODONE-ACETAMINOPHEN 5-325 MG TABLET PO PRN ×2 (17:16→23:34)
[2017-10-11] MEDS: NORMAL SALINE 1000 ML 1,000 ML IV PRN (18:45)
[2017-10-12] MEDS: PREGABALIN 25 MG CAPSULE PO SCH ×3 (06:36→21:20)
[2017-10-12] MEDS: CEFAZOLIN SODIUM 2 GM in NORMAL SALINE 100 ML IV SCH ×2 (06:37→19:10)
[2017-10-12] MEDS: OXYCODONE-ACETAMINOPHEN 5-325 MG TABLET PO PRN ×3 (06:37→19:07)
[2017-10-12] MEDS: DOCUSATE SODIUM 100 MG CAPSULE PO SCH ×2 (11:17→19:06)
[2017-10-12] MEDS: ENOXAPARIN SODIUM INJ 40 MG/0.4 ML DISP.SYRIN SUBCUT SCH (11:19)
[2017-10-12] MEDS: MEDROXYPROGESTERONE ACET 10 MG TABLET PO SCH (11:19)
--- NOTE | 2017-10-12 16:27 | PDOC PROGRESS REPORT ---
Subjective Progress Note for:: 10/12/17 Subjective:: This 61-year-old poorly conditioned patient presents to the hospital with worsening lower extremity cellulitis. She does have a history of bilateral venous stasis, peripheral vascular disease as well as chronic cellulitis of the right lower extremities. She also gives a history of vaginal bleeding intermittently for months which according to her has been evaluated by a bariatric surgeon for which she is on treatment. He has been seen by general surgery due to the cellulitis and no surgical intervention is warranted a planned possible micro-emboli due to numerous hemorrhagic bullae to lower extremities as well as left hand. Doppler studies have been done which was somewhat limited but reveals no evidence of definite thromboembolism. Arterial study demonstrates 20-49% stenosis and echocardiogram reveals no evidence of cardioembolic source. CT of the abdomen as well as CTA generally negative. She is off Heparin and currently on Ancef. Patient continues to clinically improve I discussed with her today who is the primary brick dropper and of course the preference would be for her to go to rehab at discharge however there appears to be some technical/insurance issues and I am not sure if this is gone be feasible. Discharge planning has been consulted to help navigate these issues. Meanwhile patient will just have to stay in hospital until her lesions heal as I fear that the blisters which are still yet to pop will get infected if she goes home in this current condition. Reason For Visit: CELLULITIS MORBID OBESITY Physical Exam Vital Signs: Temp Pulse Resp BP Pulse Ox 98.4 F 91 20 129/77 H 94 10/12/17 11:18 10/12/17 11:18 10/12/17 11:18 10/12/17 11:18 10/12/17 11:18 Intake & Output 10/11/17 10/12/17 10/13/17 06:59 06:59 06:59 Intake Total 2585 2468 Output Total 1650 2050 Balance 935 418 Weight 134.5 kg 133.8 kg General appearance: PRESENT: no acute distress, morbidly obese, well-developed, well-nourished Head exam: PRESENT: atraumatic, normocephalic Eye exam: PRESENT: conjunctiva pink, EOMI, PERRLA. ABSENT: scleral icterus Mouth exam: PRESENT: moist, tongue midline Neck exam: ABSENT: carotid bruit, JVD, lymphadenopathy, thyromegaly Respiratory exam: PRESENT: clear to auscultation shari. ABSENT: rales, rhonchi, wheezes Cardiovascular exam: PRESENT: RRR. ABSENT: diastolic murmur, rubs, systolic murmur Vascular exam: PRESENT: normal capillary refill GI/Abdominal exam: PRESENT: normal bowel sounds, soft. ABSENT: distended, guarding, mass, organolmegaly, rebound, tenderness Rectal exam: PRESENT: deferred Extremities exam: PRESENT: full ROM. ABSENT: calf tenderness, clubbing, pedal edema Neurological exam: PRESENT: alert, awake, oriented to person, oriented to place , oriented to time, oriented to situation, CN II-XII grossly intact. ABSENT: motor sensory deficit Psychiatric exam: PRESENT: appropriate affect, normal mood. ABSENT: homicidal ideation, suicidal ideation Skin exam: PRESENT: rash, other - blisters still intact, less swelling and erythema. ABSENT: cyanosis Results Laboratory Results: 10/11/17 06:19 10/11/17 06:19 10/04/17 06:10 NT-Pro-B Natriuret Pep 321 Impressions: Chest/Abdomen CTA 10/04/17 00:00 IMPRESSION: 1. No pulmonary embolus. There may be pulmonary arterial hypertension, however. 2. Marked cardiomegaly. Small right pleural effusion. 3. Motion artifact and lung changes as above. Suspect some of this represents mild edema related to CHF. Chest X-Ray 10/05/17 00:00 IMPRESSION: 1. Mild pulmonary edema. 2. No pneumothorax. 3. Catheter placement as described. Transvaginal US 10/05/17 00:00 IMPRESSION: Nondiagnostic study Abdomen/Pelvis CT 10/05/17 08:29 IMPRESSION: Left lateral abdominal wall hernia, containing majority of the patient's small bowel and left colon. Assessment & Plan - Time Time Spent with patient: 15-24 minutes Medications reviewed and adjusted accordingly: Yes Anticipated discharge: Acute Rehab Within: within 72 hours - Inpatient Certification Based on my medical assessment, after consideration of the patient's comorbidities, presenting symptoms, or acuity I expect that the services needed warrant INPATIENT care.: Yes Medical Necessity: Need for IV Antibiotics - Plan Summary Plan Summary: 1. Lower extremity cellulitis currently on Ancef day 4. Patient continues to improve clinically I will continue Ancef through October 16 and reevaluate after that 2. Patient will benefit from rehab placement however there appears to be some issues with insurance but discharge planning is been consulted and is working on this 3. Vagina bleeding -intermittent. H&H stable. May need to recontact BAND SPLITTER if bleeding persist. Patient is off heparin and she really had no major bleeding while on heparin 4. Morbid obesity likely will be complicated and factor for patient's recovery with potential adverse effects including venous thromboembolism, pneumonia, physical deconditioning, poor wound healing 5. Leukocytosis resolved 6. Physical deconditioning- PT, encourage ambulation. 7. H and H stable 8. Lyrica due to pain complaints 9. Arterial venous insufficient at this point this has not been confirmed and it has been tentatively ruled out. No anticoagulant therapy at this time
[2017-10-12] MEDS: NORMAL SALINE 1000 ML 1,000 ML IV PRN (19:14)
[2017-10-12] MEDS: FENTANYL 25 MCG/HR PATCH.TD72 TD SCH (21:41)
[2017-10-13] MEDS: OXYCODONE-ACETAMINOPHEN 5-325 MG TABLET PO PRN ×4 (02:22→22:35)
[2017-10-13] MEDS: CEFAZOLIN SODIUM 2 GM in NORMAL SALINE 100 ML IV SCH ×3 (02:35→17:14)
[2017-10-13] MEDS: PREGABALIN 25 MG CAPSULE PO SCH ×3 (05:44→22:35)
[2017-10-13 06:29] LABS: ABSOLUTE BASOPHILS # (AUTO) 0.1 10^3/uL (0.0-0.2); ABSOLUTE EOSINOPHILS # (AUTO) 0.9 10^3/uL (0.0-0.6); ABSOLUTE LYMPHOCYTES (AUTO) 0.9 10^3/uL (0.5-4.7); ABSOLUTE NEUT (AUTO) 6.8 10^3/uL (1.7-8.2); BASOPHILS % (AUTO) 0.6 % (0-2); EOSINOPHILS % (AUTO) 9.5 % (0-6); HEMATOCRIT 38.3 % (36.0-47.0); HEMOGLOBIN 12.6 g/dL (12.0-15.5); LYMPHOCYTES % (AUTO) 9.3 % (13-45); MEAN CORPUSCULAR HEMOGLOBIN 27.7 pg (27.0-33.4); MEAN CORPUSCULAR HGB CONC 32.8 g/dL (32.0-36.0); MEAN CORPUSCULAR VOLUME 84 fl (80-97); MONOCYTES % (AUTO) 10.4 % (3-13); PLATELET COUNT 385 10^3/uL (150-450); RED BLOOD COUNT 4.54 10^6/uL (3.72-5.28); SEGMENTED NEUTROPHILS % (AUTO) 70.2 % (42-78); TOTAL CELLS COUNTED % (AUTO) 100 %; WHITE BLOOD COUNT 9.7 10^3/uL (4.0-10.5)
[2017-10-13 06:37] LABS: ANION GAP 9 (5-19); BLOOD UREA NITROGEN 9 mg/dL (7-20); CALCIUM 9.2 mg/dL (8.4-10.2); CARBON DIOXIDE 34 mmol/L (22-30); CHLORIDE 102 mmol/L (98-107); GLUCOSE 111 mg/dL (75-110); POTASSIUM 4.5 mmol/L (3.6-5.0); SODIUM 145.4 mmol/L (137-145)
--- NOTE | 2017-10-13 06:57 | PDOC CONSULTATION ---
History of Present Illness Admission Date/PCP: 10/04/17 01:17 ARNIE MEREDITH MD History of Present Illness: CHIDI RIVERA is a 61 year old female admitted with cellulitis and now with noted emboli. Is currently on anticoagulation., Has noted vaginal bleeding. Sono report is inconclusive due to patient's body habitus. Vaginal bleeding is minimal and most likely attributable to atrophy and the anticoagulation. However, would recommend endometrial sampling on an outpatient basis when patient's condition is stabalized. (do not have Endometrial pipelles here at hospital and not emergent enough to risk procedure in OR at this time.) Thank you for the consultation. Please continue the provera as previously ordered by Dr. Larson. Past Medical History Cardiac Medical History: Reports: Hypertension, Peripheral Vascular Disease Pulmonary Medical History: Reports: Sleep Apnea, Other - Wears oxygen at home occasionally. EENT Medical History: Reports: None Neurological Medical History: Reports: None Endocrine Medical History: Reports: None Renal/ Medical History: Reports: None Malignancy Medical History: Reports: None GI Medical History: Reports: None Musculoskeltal Medical History: Reports: Arthritis Skin Medical History: Reports: None Psychiatric Medical History: Reports: None Traumatic Medical History: Reports: None Infectious Medical History: Reports: None Social History Lives with: Spouse/Significant other Smoking Status: Never Smoker Frequency of Alcohol Use: None Drugs: None - Advance Directive Resuscitation Status: Full Code Family History Family History: Reviewed & Not Pertinent, Hypertension Parental Family History Reviewed: No Children Family History Reviewed: No Sibling(s) Family History Reviewed.: No Medication/Allergy Home Medications: Amitriptyline HCl 1 tab PO DAILY 10/04/17 Doxycycline Hyclate 100 mg PO DAILY 10/04/17 Duloxetine HCl 20 mg PO DAILY 10/04/17 Furosemide [Lasix 40 mg Tablet] 40 mg PO QAM 10/04/17 Gabapentin [Neurontin 300 mg Capsule] 900 mg PO Q8 10/04/17 Hydrocodone Bit/Acetaminophen [Hydrocodon-Acetaminophn 10-325] 1 each PO BID PRN 10/04/17 Lisinopril 10 mg PO DAILY 10/04/17 Medroxyprogesterone Acetate 1 tab PO TID 10/04/17 Allergies/Adverse Reactions: Penicillins Allergy (Verified 10/03/17 20:30) Physical Exam - Physical Exam Vital Signs: Temp Pulse Resp BP Pulse Ox 97.9 F 106 H 16 139/72 H 96 10/13/17 03:18 10/13/17 03:18 10/13/17 03:18 10/13/17 03:18 10/13/17 03:18 Intake & Output 10/11/17 10/12/17 10/13/17 06:59 06:59 06:59 Intake Total 2585 2468 7266 Output Total 1659 7870 3325 Balance 532 879 1948 Weight 134.5 kg 133.8 kg 135.2 kg Result Laboratory Results: 10/13/17 04:30 10/13/17 04:30 10/13/17 10/13/17 04:30 04:30 WBC 9.7 RBC 4.54 Hgb 12.6 Hct 38.3 MCV 84 MCH 27.7 MCHC 32.8 RDW 16.0 H Plt Count 385 Seg Neutrophils % 70.2 Lymphocytes % 9.3 L Monocytes % 10.4 Eosinophils % 9.5 H Basophils % 0.6 Absolute Neutrophils 6.8 Absolute Lymphocytes 0.9 Absolute Monocytes 1.0 Absolute Eosinophils 0.9 H Absolute Basophils 0.1 Sodium 145.4 H Potassium 4.5 Chloride 102 Carbon Dioxide 34 H Anion Gap 9 BUN 9 Creatinine 0.65 Est GFR ( Amer) > 60 Est GFR (Non-Af Amer) > 60 Glucose 111 H Calcium 9.2 10/04/17 06:10 NT-Pro-B Natriuret Pep 321 Impressions: Chest/Abdomen CTA 10/04/17 00:00 IMPRESSION: 1. No pulmonary embolus. There may be pulmonary arterial hypertension, however. 2. Marked cardiomegaly. Small right pleural effusion. 3. Motion artifact and lung changes as above. Suspect some of this represents mild edema related to CHF. Chest X-Ray 10/05/17 00:00 IMPRESSION: 1. Mild pulmonary edema. 2. No pneumothorax. 3. Catheter placement as described. Transvaginal US 10/05/17 00:00 IMPRESSION: Nondiagnostic study Abdomen/Pelvis CT 10/05/17 08:29 IMPRESSION: Left lateral abdominal wall hernia, containing majority of the patient's small bowel and left colon. Assessment & Plan - Plan Summary Plan Summary: see above
[2017-10-13] MEDS: DOCUSATE SODIUM 100 MG CAPSULE PO SCH ×2 (09:51→17:15)
[2017-10-13] MEDS: ENOXAPARIN SODIUM INJ 40 MG/0.4 ML DISP.SYRIN SUBCUT SCH (09:52)
[2017-10-13] MEDS: MEDROXYPROGESTERONE ACET 10 MG TABLET PO SCH (09:52)
[2017-10-13] MEDS: NORMAL SALINE 1000 ML 1,000 ML IV PRN (19:00)
--- NOTE | 2017-10-13 19:08 | PDOC PROGRESS REPORT ---
Subjective Progress Note for:: 10/13/17 Subjective:: No adverse events overnight. No new complaints. Vital signs are stable. When I came into the room, before and after the door, I can hear screaming coming from inside the room. I came in the nurse and the aid were moving her leg. It was a bit of a seen, and when I examined her leg she displayed no signs of any tenderness at all. She has had no fevers. Reason For Visit: CELLULITIS MORBID OBESITY Physical Exam Vital Signs: Temp Pulse Resp BP Pulse Ox 98.4 F 103 H 20 127/74 H 92 10/13/17 15:30 10/13/17 15:30 10/13/17 15:30 10/13/17 15:30 10/13/17 15:30 Intake & Output 10/12/17 10/13/17 10/14/17 06:59 06:59 06:59 Intake Total 2468 7266 1969 Output Total 2050 3325 1350 Balance 418 3941 619 Weight 133.8 kg 135.2 kg General appearance: PRESENT: no acute distress, cooperative, disheveled, morbidly obese Head exam: PRESENT: atraumatic, normocephalic Respiratory exam: PRESENT: clear to auscultation shari, unlabored. ABSENT: accessory muscle use, chest wall tenderness, crackles, rales, rhonchi, wheezes Cardiovascular exam: PRESENT: RRR. ABSENT: clicks, diastolic murmur, gallop, systolic murmur Vascular exam: PRESENT: normal capillary refill GI/Abdominal exam: PRESENT: normal bowel sounds, soft. ABSENT: ascites, distended, guarding, mass, rebound, tenderness Extremities exam: PRESENT: other - She has petechia primarily on around her toes of both feet, and she has a couple on her left hand, all of which appear to be several days old. There is no evidence of any new petechiae. Neurological exam: PRESENT: alert, awake, oriented to person, oriented to place , oriented to time Results Laboratory Results: 10/13/17 04:30 10/13/17 04:30 10/13/17 10/13/17 04:30 04:30 WBC 9.7 RBC 4.54 Hgb 12.6 Hct 38.3 MCV 84 MCH 27.7 MCHC 32.8 RDW 16.0 H Plt Count 385 Seg Neutrophils % 70.2 Lymphocytes % 9.3 L Monocytes % 10.4 Eosinophils % 9.5 H Basophils % 0.6 Absolute Neutrophils 6.8 Absolute Lymphocytes 0.9 Absolute Monocytes 1.0 Absolute Eosinophils 0.9 H Absolute Basophils 0.1 Sodium 145.4 H Potassium 4.5 Chloride 102 Carbon Dioxide 34 H Anion Gap 9 BUN 9 Creatinine 0.65 Est GFR ( Amer) > 60 Est GFR (Non-Af Amer) > 60 Glucose 111 H Calcium 9.2 10/04/17 06:10 NT-Pro-B Natriuret Pep 321 Impressions: Chest/Abdomen CTA 10/04/17 00:00 IMPRESSION: 1. No pulmonary embolus. There may be pulmonary arterial hypertension, however. 2. Marked cardiomegaly. Small right pleural effusion. 3. Motion artifact and lung changes as above. Suspect some of this represents mild edema related to CHF. Chest X-Ray 10/05/17 00:00 IMPRESSION: 1. Mild pulmonary edema. 2. No pneumothorax. 3. Catheter placement as described. Transvaginal US 10/05/17 00:00 IMPRESSION: Nondiagnostic study Abdomen/Pelvis CT 10/05/17 08:29 IMPRESSION: Left lateral abdominal wall hernia, containing majority of the patient's small bowel and left colon. Assessment & Plan - Diagnosis (1) Lower extremity cellulitis Qualifiers: Laterality: right Qualified Code(s): L03.115 - Cellulitis of right lower limb Is this a current diagnosis for this admission?: Yes Plan: Continue antibiotics, consider transition to oral antibiotics next 1-2 days. (2) Microembolization Is this a current diagnosis for this admission?: Yes Plan: Echocardiogram was unremarkable. No evidence of any thrombogenic process at this time. No evidence of any new petechiae. Will look into this a bit more to see if there is any further investigation needed. (3) Morbid obesity Is this a current diagnosis for this admission?: Yes Plan: Recommended lifestyle modification. - Time Time Spent with patient: 25-34 minutes Anticipated discharge: Home
[2017-10-13] MEDS: NORMAL SALINE INJ/PF 0.9% 10 ML SDV IV PRN (22:35)
[2017-10-14] MEDS: CEFAZOLIN SODIUM 2 GM in NORMAL SALINE 100 ML IV SCH ×3 (03:12→17:06)
[2017-10-14] MEDS: PREGABALIN 25 MG CAPSULE PO SCH ×3 (05:25→22:27)
[2017-10-14] MEDS: OXYCODONE-ACETAMINOPHEN 5-325 MG TABLET PO PRN ×3 (05:25→22:27)
[2017-10-14] MEDS: DOCUSATE SODIUM 100 MG CAPSULE PO SCH ×2 (09:02→17:05)
[2017-10-14] MEDS: MEDROXYPROGESTERONE ACET 10 MG TABLET PO SCH (09:02)
[2017-10-14] MEDS: ENOXAPARIN SODIUM INJ 40 MG/0.4 ML DISP.SYRIN SUBCUT SCH (09:02)
[2017-10-14] MEDS: ACETAMINOPHEN 325 MG TABLET PO PRN (12:22)
[2017-10-14] MEDS: NORMAL SALINE 1000 ML 1,000 ML IV PRN (17:06)
--- NOTE | 2017-10-14 19:26 | PDOC PROGRESS REPORT ---
Subjective Progress Note for:: 10/14/17 Subjective:: No adverse events overnight. No fevers. She has not noticed any development of any new microembolic lesions. We went over her history in some detail, but she is a very poor historian. However she has no history of lupus or any clotting disorder that she knows of, and she knows of no one in her family that has any such thing. Neither does her . Her did say that a few months ago she was noted to have some enlarged lymph nodes in her chest and had 1 of them biopsied but it was benign. She was supposed to have a CT scan of her chest done last week and follow-up but she was here in the hospital so did not get that done. Reason For Visit: CELLULITIS MORBID OBESITY Physical Exam Vital Signs: Temp Pulse Resp BP Pulse Ox 98.9 F 87 18 123/68 94 10/14/17 08:00 10/14/17 08:00 10/14/17 08:00 10/14/17 08:00 10/14/17 08:00 Intake & Output 10/13/17 10/14/17 10/15/17 06:59 06:59 06:59 Intake Total 7258 2650 Output Total 3328 2950 Balance 3941 -293 Weight 135.2 kg 135.9 kg General appearance: PRESENT: no acute distress, disheveled, obese, well- developed Head exam: PRESENT: atraumatic, normocephalic Respiratory exam: PRESENT: clear to auscultation shrai. ABSENT: rales, rhonchi, wheezes Cardiovascular exam: PRESENT: RRR. ABSENT: diastolic murmur, rubs, systolic murmur GI/Abdominal exam: PRESENT: normal bowel sounds, soft. ABSENT: distended, guarding, mass, organolmegaly, rebound, tenderness Extremities exam: PRESENT: full ROM, other - Signs of chronic venous stasis of lower extremities bilaterally. She still has multiple petechiae in both feet and her left hand, but no evidence of any newer-appearing lesions.. ABSENT: calf tenderness, clubbing, pedal edema Results Laboratory Results: 10/13/17 04:30 10/13/17 04:30 10/04/17 06:10 NT-Pro-B Natriuret Pep 321 Impressions: Chest/Abdomen CTA 10/04/17 00:00 IMPRESSION: 1. No pulmonary embolus. There may be pulmonary arterial hypertension, however. 2. Marked cardiomegaly. Small right pleural effusion. 3. Motion artifact and lung changes as above. Suspect some of this represents mild edema related to CHF. Chest X-Ray 10/05/17 00:00 IMPRESSION: 1. Mild pulmonary edema. 2. No pneumothorax. 3. Catheter placement as described. Transvaginal US 10/05/17 00:00 IMPRESSION: Nondiagnostic study Abdomen/Pelvis CT 10/05/17 08:29 IMPRESSION: Left lateral abdominal wall hernia, containing majority of the patient's small bowel and left colon. Assessment & Plan - Diagnosis (1) Lower extremity cellulitis Qualifiers: Laterality: right Qualified Code(s): L03.115 - Cellulitis of right lower limb Is this a current diagnosis for this admission?: Yes Plan: Responding well to IV antibiotics. I hope to be able to transition her over to oral antibiotics in the next day or 2. (2) Microembolization Is this a current diagnosis for this admission?: Yes Plan: I have ordered numerous blood tests for a hypercoagulable workup, but it may be a while because most of these are send off tests. Of also ordered a CT scan of the chest abdomen and pelvis to evaluate for any evidence of malignancy. Blood cultures remain negative and her echocardiogram was unremarkable regarding evidence of a source of microembolization. At this point I have a suspicion of a noninfective thrombotic endocarditis. (3) Morbid obesity Is this a current diagnosis for this admission?: Yes Plan: Recommended lifestyle modification.
[2017-10-14] MEDS: NORMAL SALINE INJ/PF 0.9% 10 ML SDV IV PRN (22:27)
[2017-10-15] MEDS: CEFAZOLIN SODIUM 2 GM in NORMAL SALINE 100 ML IV SCH ×3 (02:09→18:09)
[2017-10-15] MEDS: OXYCODONE-ACETAMINOPHEN 5-325 MG TABLET PO PRN ×3 (05:11→22:27)
[2017-10-15] MEDS: PREGABALIN 25 MG CAPSULE PO SCH ×3 (05:11→22:27)
[2017-10-15] MEDS: DOCUSATE SODIUM 100 MG CAPSULE PO SCH ×2 (09:52→18:09)
[2017-10-15] MEDS: ENOXAPARIN SODIUM INJ 40 MG/0.4 ML DISP.SYRIN SUBCUT SCH (09:52)
[2017-10-15] MEDS: MEDROXYPROGESTERONE ACET 10 MG TABLET PO SCH (09:52)
--- NOTE | 2017-10-15 14:55 | RADIOLOGY REPORT (SQ) ---
EXAM DESCRIPTION: CT CHEST WITH; CT ABD/PELVIS WITH IV ONLY COMPLETED DATE/TIME: 10/15/2017 1:54 pm REASON FOR STUDY: peripheral microemboli; evaluate for malignancy COMPARISON: CT angio chest 10/04/2017 CT abdomen pelvis 10/05/2017 Pelvic ultrasound 10/05/2017 CONTRAST TYPE AND DOSE: contrast/concentration: Isovue 370.00 mg/ml; Total Contrast Delivered: 100.0 ml; Total Saline Delivered: 70.0 ml RENAL FUNCTION: Creatinine 0.65 TECHNIQUE: CT scan of the chest performed using helical scanning technique with dynamic intravenous contrast injection. Images reviewed with lung, soft tissue and bone windows. Reconstructed coronal a nd sagittal MPR images reviewed. All images stored on PACS. CT scan of the abdomen and pelvis performed with intravenous and without oral contrastusing helical s tanya technique with dynamic intravenous contrast injection. Images reviewed with lung, soft tissu e and bone windows. Reconstructed coronal and sagittal MPR images reviewed. Delayed images for eval uation of the urinary system also acquired and evaluated. All images stored on PACS. All CT scanners at this facility use dose modulation, iterative reconstruction, and/or weight based d osing when appropriate to reduce radiation dose to as low as reasonably achievable (ALARA). [facility]: Dose Right [facility]: CareDose [facility]: Dose Right [facility]: Teradose 4D [facility]: [employer] RADIATION DOSE: CT Rad equipment meets quality standard of care and radiation dose reduction techniq ues were employed. CTDIvol: 26.8 - 31.3 mGy. DLP: 4184 mGy-cm. . LIMITATIONS: None. FINDINGS: CHEST: LUNGS AND PLEURA: Patchy ground-glass opacity in both lungs, question mild fluid overload or congesti ve failure. No dense consolidation with air bronchograms worrisome for pneumonia. Trace right pleural effusion u nchanged compared to 10/04/2017. No pneumothorax. No pulmonary nodules. HILAR AND MEDIASTINAL STRUCTURES: Moderate size retrocardiac hiatal hernia. Stable small prevascular and precarinal lymph nodes in the mediastinum of doubtful significance. HEART AND VASCULAR STRUCTURES: Stable moderate cardiomegaly. Heavily calcified mitral annulus. HARDWARE: None. THYROID AND OTHER SOFT TISSUES: No masses. No adenopathy. BONES: No significant finding. OTHER: Right jugular central venous dialysis catheter tip in the right atrium ABDOMEN AND PELVIS: LIVER: Normal size. No masses. No dilated ducts. SPLEEN: Stable splenomegaly, 15 cm in length. No focal lesions. PANCREAS: No masses. No significant calcifications. No adjacent inflammation or peripancreatic fluid collections. Pancreatic duct not dilated. GALLBLADDER: Stone in the gallbladder. No pericholecystic fluid or gross gallbladder wall thickening . ADRENAL GLANDS: No significant masses or asymmetry. RIGHT KIDNEY AND URETER: No solid masses. No significant calcification. No hydronephrosis or hydroure ter. LEFT KIDNEY AND URETER: No solid masses. No significant calcification. No hydronephrosis or hydrouret er. AORTA AND VESSELS: No aneurysm. No dissection. Renal arteries, SMA, celiac without stenosis. RETROPERITONEUM: No retroperitoneal adenopathy, hemorrhage or masses. BOWEL AND PERITONEAL CAVITY: Patient is post ventral hernia repair with mesh and tacks. Along the leftward lateral edge of the hernia repair, a recurrent defect in the abdominal wall present 6 x 9 cm in diameter. Within a very large left lateral abdominal hernia sac, there is splenic flexure and descending colon, majority of the patient's small bowel, and mesenteric fat. No gross CT evidence of bowel obstruction. APPENDIX: Not identified. PELVIS: No mass or free fluid. Bladder decompressed by a Serna catheter. Female pelvic organs are i dentified. Stable 6.5 x 5 cm chronic peripherally calcified fluid collection in the anterior inferio r abdominal wall likely old prior chronic postsurgical change with calcified seroma or hematoma. BONES: Advanced arthritis right hip. No lumbar compression fracture or gross pelvic fracture OTHER: Report called to Dr. Padilla IMPRESSION: Mild ground-glass opacity in the lungs, question mild fluid overload or congestive failu re Huge left lateral abdominal wall hernia containing the majority of patients colon and small bowel wit hout evidence of bowel obstruction. TECHNICAL DOCUMENTATION: JOB ID: [id number] Quality ID # [id number]: Final reports with documentation of one or more dose reduction techniques (e.g., Au tomated exposure control, adjustment of the mA and/or kV according to patient size, use of iterative reconstruction technique) 2010 [employer]- All Rights Reserved Reading location - IP/workstation name: [facility]
[2017-10-15] MEDS: NORMAL SALINE 1000 ML 1,000 ML IV PRN (15:45)
--- NOTE | 2017-10-15 16:56 | PDOC PROGRESS REPORT ---
Subjective Progress Note for:: 10/15/17 Subjective:: No adverse events overnight. No new complaints. Vital signs been stable. Appetite has been fair. She has had no chest pain or shortness of breath. She has not noticed any new petechial lesions on her extremities. No abdominal pain. She has not been getting out of bed despite our encouragement. Reason For Visit: CELLULITIS MORBID OBESITY Physical Exam Vital Signs: Temp Pulse Resp BP Pulse Ox 98.2 F 95 18 133/73 H 93 10/15/17 15:01 10/15/17 15:01 10/15/17 15:01 10/15/17 15:01 10/15/17 15:01 Intake & Output 10/14/17 10/15/17 10/16/17 06:59 06:59 06:59 Intake Total 2657 2106 Output Total 2950 3285 Balance -293 -1519 Weight 135.9 kg 131.4 kg General appearance: PRESENT: no acute distress, disheveled, morbidly obese, well -developed Head exam: PRESENT: atraumatic, normocephalic Respiratory exam: PRESENT: clear to auscultation shari. ABSENT: rales, rhonchi, wheezes Cardiovascular exam: PRESENT: RRR. ABSENT: diastolic murmur, rubs, systolic murmur GI/Abdominal exam: PRESENT: mass, normal bowel sounds, soft, other - She has a left lateral wall ventral hernia which is chronic has bowel sounds in the sac. ABSENT: distended, guarding, organolmegaly, rebound, tenderness Extremities exam: PRESENT: full ROM, other - She has evidence of chronic venous insufficiency in lower extremities bilaterally, and she has some draining blisters on her feet that are covered in gauze with shadowing on the bandage. ABSENT: calf tenderness, clubbing, pedal edema Neurological exam: PRESENT: alert, awake, oriented to person, oriented to place , oriented to time Results Laboratory Results: 10/13/17 04:30 10/13/17 04:30 10/04/17 06:10 NT-Pro-B Natriuret Pep 321 Impressions: Chest/Abdomen CTA 10/04/17 00:00 IMPRESSION: 1. No pulmonary embolus. There may be pulmonary arterial hypertension, however. 2. Marked cardiomegaly. Small right pleural effusion. 3. Motion artifact and lung changes as above. Suspect some of this represents mild edema related to CHF. Chest X-Ray 10/05/17 00:00 IMPRESSION: 1. Mild pulmonary edema. 2. No pneumothorax. 3. Catheter placement as described. Transvaginal US 10/05/17 00:00 IMPRESSION: Nondiagnostic study Abdomen/Pelvis CT 10/14/17 00:00 IMPRESSION: Mild ground-glass opacity in the lungs, question mild fluid overload or congestive failure Huge left lateral abdominal wall hernia containing the majority of patients colon and small bowel without evidence of bowel obstruction. Chest CT 10/14/17 00:00 IMPRESSION: Mild ground-glass opacity in the lungs, question mild fluid overload or congestive failure Huge left lateral abdominal wall hernia containing the majority of patients colon and small bowel without evidence of bowel obstruction. Assessment & Plan - Diagnosis (1) Lower extremity cellulitis Qualifiers: Laterality: right Qualified Code(s): L03.115 - Cellulitis of right lower limb Is this a current diagnosis for this admission?: Yes Plan: Responding well to IV antibiotics. I hope to be able to transition her over to oral antibiotics in the next day or 2, likely tomorrow. (2) Microembolization Is this a current diagnosis for this admission?: Yes Plan: I have ordered numerous blood tests for a hypercoagulable workup, but it may be a while because most of these are send off tests. CT of the chest abdomen and pelvis showed no evidence of malignancy and there were not any suspicious lymph nodes according to the report. Blood cultures remain negative and her echocardiogram was unremarkable regarding evidence of a source of microembolization. At this point I have a suspicion of a noninfective thrombotic endocarditis. Coagulation studies do not indicate DIC. (3) Morbid obesity Is this a current diagnosis for this admission?: Yes Plan: Recommended lifestyle modification.
[2017-10-15] MEDS: FENTANYL 25 MCG/HR PATCH.TD72 TD SCH (22:27)
[2017-10-16] MEDS: OXYCODONE-ACETAMINOPHEN 5-325 MG TABLET PO PRN ×4 (04:33→21:42)
[2017-10-16] MEDS: PREGABALIN 25 MG CAPSULE PO SCH ×3 (05:30→21:42)
[2017-10-16] MEDS: DOCUSATE SODIUM 100 MG CAPSULE PO SCH ×2 (09:50→17:46)
[2017-10-16] MEDS: MEDROXYPROGESTERONE ACET 10 MG TABLET PO SCH (09:50)
[2017-10-16] MEDS: ENOXAPARIN SODIUM INJ 40 MG/0.4 ML DISP.SYRIN SUBCUT SCH (09:50)
--- NOTE | 2017-10-16 15:40 | PDOC PROGRESS REPORT ---
Subjective Progress Note for:: 10/16/17 Subjective:: No adverse events overnight. No new complaints. Vital signs been stable. Appetite has been fair. She has had no chest pain or shortness of breath. She has not noticed any new petechial lesions on her extremities. No abdominal pain. Apparently she got out of bed yesterday with physical therapy but only went about 8 feet. Apparently she has been getting around fine at home, at least well enough to perform her ADLs, nothing has really happened here that would keep her from being able to walk. Reason For Visit: CELLULITIS MORBID OBESITY Physical Exam Vital Signs: Temp Pulse Resp BP Pulse Ox 98.4 F 94 20 126/77 H 97 10/16/17 11:52 10/16/17 11:52 10/16/17 11:52 10/16/17 11:52 10/16/17 11:52 Intake & Output 10/15/17 10/16/17 10/17/17 06:59 06:59 06:59 Intake Total 2106 3502 Output Total 3623 4230 Balance -1519 -728 Weight 131.4 kg 135.1 kg General appearance: PRESENT: no acute distress, disheveled, morbidly obese, well -developed Head exam: PRESENT: atraumatic, normocephalic Respiratory exam: PRESENT: clear to auscultation shari. ABSENT: rales, rhonchi, wheezes Cardiovascular exam: PRESENT: RRR. ABSENT: diastolic murmur, rubs, systolic murmur Vascular exam: PRESENT: normal capillary refill GI/Abdominal exam: PRESENT: normal bowel sounds - Left abdominal ventral hernia which is chronic, soft. ABSENT: distended, guarding, mass, organolmegaly, rebound, tenderness Extremities exam: PRESENT: full ROM. ABSENT: calf tenderness - Chronic venous stasis bilaterally with superficial wounds on both feet are cleanly bandaged and diminished petechiae on both feet, clubbing, pedal edema Neurological exam: PRESENT: alert, awake, oriented to person, oriented to place , oriented to time Results Laboratory Results: 10/13/17 04:30 10/13/17 04:30 10/04/17 06:10 NT-Pro-B Natriuret Pep 321 Impressions: Chest/Abdomen CTA 10/04/17 00:00 IMPRESSION: 1. No pulmonary embolus. There may be pulmonary arterial hypertension, however. 2. Marked cardiomegaly. Small right pleural effusion. 3. Motion artifact and lung changes as above. Suspect some of this represents mild edema related to CHF. Chest X-Ray 10/05/17 00:00 IMPRESSION: 1. Mild pulmonary edema. 2. No pneumothorax. 3. Catheter placement as described. Transvaginal US 10/05/17 00:00 IMPRESSION: Nondiagnostic study Abdomen/Pelvis CT 10/14/17 00:00 IMPRESSION: Mild ground-glass opacity in the lungs, question mild fluid overload or congestive failure Huge left lateral abdominal wall hernia containing the majority of patients colon and small bowel without evidence of bowel obstruction. Chest CT 10/14/17 00:00 IMPRESSION: Mild ground-glass opacity in the lungs, question mild fluid overload or congestive failure Huge left lateral abdominal wall hernia containing the majority of patients colon and small bowel without evidence of bowel obstruction. Assessment & Plan - Diagnosis (1) Lower extremity cellulitis Qualifiers: Laterality: right Qualified Code(s): L03.115 - Cellulitis of right lower limb Is this a current diagnosis for this admission?: Yes Plan: Responding well to IV antibiotics. Will transition to Keflex. (2) Microembolization Is this a current diagnosis for this admission?: Yes Plan: I have ordered numerous blood tests for a hypercoagulable workup, but it may be a while because most of these are send off tests. CT of the chest abdomen and pelvis showed no evidence of malignancy and there were not any suspicious lymph nodes according to the report. Blood cultures remain negative and her echocardiogram was unremarkable regarding evidence of a source of microembolization. At this point I have a suspicion of a noninfective thrombotic endocarditis. Coagulation studies do not indicate DIC. (3) Morbid obesity Is this a current diagnosis for this admission?: Yes Plan: Recommended lifestyle modification. - Time Time Spent with patient: 15-24 minutes Medications reviewed and adjusted accordingly: Yes
[2017-10-16] MEDS: CEPHALEXIN 500 MG CAPSULE PO SCH (21:56)
[2017-10-17] MEDS: OXYCODONE-ACETAMINOPHEN 5-325 MG TABLET PO PRN ×4 (03:44→22:33)
[2017-10-17] MEDS: PREGABALIN 25 MG CAPSULE PO SCH ×3 (06:39→22:33)
[2017-10-17] MEDS: CEPHALEXIN 500 MG CAPSULE PO SCH ×3 (06:39→22:33)
[2017-10-17] MEDS: NORMAL SALINE 1000 ML 1,000 ML IV PRN (06:40)
[2017-10-17] MEDS: MEDROXYPROGESTERONE ACET 10 MG TABLET PO SCH (09:52)
[2017-10-17] MEDS: ENOXAPARIN SODIUM INJ 40 MG/0.4 ML DISP.SYRIN SUBCUT SCH (09:52)
[2017-10-17] MEDS: DOCUSATE SODIUM 100 MG CAPSULE PO SCH ×2 (09:52→17:15)
--- NOTE | 2017-10-17 15:23 | PDOC PROGRESS REPORT ---
Subjective Progress Note for:: 10/17/17 Subjective:: No adverse events overnight. No new complaints. She actually got up out of the bed and into the chair today but she required 2 person assist to do so. Apparently the transitions or what gets her. She seems to be able to stand up under her own power remains standing but she just needs help getting to the standing position. Reason For Visit: CELLULITIS MORBID OBESITY Physical Exam Vital Signs: Temp Pulse Resp BP Pulse Ox 97.8 F 106 H 16 141/79 H 95 10/17/17 12:00 10/17/17 14:00 10/17/17 12:00 10/17/17 12:00 10/17/17 12:00 Intake & Output 10/16/17 10/17/17 10/18/17 06:59 06:59 06:59 Intake Total 3502 2760 Output Total 4230 4175 Balance -728 -1415 Weight 135.1 kg 131.8 kg General appearance: PRESENT: no acute distress, cooperative, disheveled, morbidly obese Head exam: PRESENT: atraumatic, normocephalic Respiratory exam: PRESENT: clear to auscultation shari. ABSENT: rales, rhonchi, wheezes Cardiovascular exam: PRESENT: RRR. ABSENT: diastolic murmur, rubs, systolic murmur Vascular exam: PRESENT: normal capillary refill GI/Abdominal exam: PRESENT: normal bowel sounds, soft. ABSENT: distended, guarding, mass - She has the known left lateral ventral hernia, organolmegaly, rebound, tenderness Extremities exam: PRESENT: full ROM, other - Signs of chronic venous stasis in lower extremities bilaterally, along with the diminishing petechiae on her feet and hands as previously noted.. ABSENT: calf tenderness, clubbing, pedal edema Neurological exam: PRESENT: alert, awake, oriented to person, oriented to place , oriented to time Results Laboratory Results: 10/13/17 04:30 10/13/17 04:30 10/04/17 06:10 NT-Pro-B Natriuret Pep 321 Impressions: Chest/Abdomen CTA 10/04/17 00:00 IMPRESSION: 1. No pulmonary embolus. There may be pulmonary arterial hypertension, however. 2. Marked cardiomegaly. Small right pleural effusion. 3. Motion artifact and lung changes as above. Suspect some of this represents mild edema related to CHF. Chest X-Ray 10/05/17 00:00 IMPRESSION: 1. Mild pulmonary edema. 2. No pneumothorax. 3. Catheter placement as described. Transvaginal US 10/05/17 00:00 IMPRESSION: Nondiagnostic study Abdomen/Pelvis CT 10/14/17 00:00 IMPRESSION: Mild ground-glass opacity in the lungs, question mild fluid overload or congestive failure Huge left lateral abdominal wall hernia containing the majority of patients colon and small bowel without evidence of bowel obstruction. Chest CT 10/14/17 00:00 IMPRESSION: Mild ground-glass opacity in the lungs, question mild fluid overload or congestive failure Huge left lateral abdominal wall hernia containing the majority of patients colon and small bowel without evidence of bowel obstruction. Assessment & Plan - Diagnosis (1) Lower extremity cellulitis Qualifiers: Laterality: right Qualified Code(s): L03.115 - Cellulitis of right lower limb Is this a current diagnosis for this admission?: Yes Plan: Responding well to IV antibiotics. Will continue Keflex for a total of 14 days of treatment overall. (2) Microembolization Is this a current diagnosis for this admission?: Yes Plan: I have ordered numerous blood tests for a hypercoagulable workup, but it may be a while because most of these are send off tests. CT of the chest abdomen and pelvis showed no evidence of malignancy and there were not any suspicious lymph nodes according to the report. Blood cultures remain negative and her echocardiogram was unremarkable regarding evidence of a source of microembolization. At this point I have a suspicion of a noninfective thrombotic endocarditis. Coagulation studies do not indicate DIC. (3) Morbid obesity Is this a current diagnosis for this admission?: Yes Plan: Recommended lifestyle modification.
[2017-10-18] MEDS: PREGABALIN 25 MG CAPSULE PO SCH ×3 (06:08→21:46)
[2017-10-18] MEDS: CEPHALEXIN 500 MG CAPSULE PO SCH ×3 (06:08→21:46)
[2017-10-18] MEDS: OXYCODONE-ACETAMINOPHEN 5-325 MG TABLET PO PRN ×3 (06:08→21:46)
[2017-10-18] MEDS: ENOXAPARIN SODIUM INJ 40 MG/0.4 ML DISP.SYRIN SUBCUT SCH (09:09)
[2017-10-18] MEDS: MEDROXYPROGESTERONE ACET 10 MG TABLET PO SCH (09:16)
[2017-10-18] MEDS: ACETAMINOPHEN 325 MG TABLET PO PRN (09:16)
[2017-10-18] MEDS: DOCUSATE SODIUM 100 MG CAPSULE PO SCH ×2 (09:16→17:13)
--- NOTE | 2017-10-18 09:41 | PDOC PROGRESS REPORT ---
Subjective Progress Note for:: 10/18/17 Subjective:: Events since I last saw her noted Patient currently on oral antibiotics. She is slowly ambulating. Reason For Visit: CELLULITIS MORBID OBESITY Physical Exam Vital Signs: Temp Pulse Resp BP Pulse Ox 98.4 F 85 20 125/64 97 10/18/17 08:00 10/18/17 08:00 10/18/17 08:00 10/18/17 08:00 10/18/17 08:18 Intake & Output 10/17/17 10/18/17 10/19/17 06:59 06:59 06:59 Intake Total 2760 1596 Output Total 4171 7150 Balance -1415 -114 Weight 131.8 kg 130.7 kg General appearance: PRESENT: no acute distress, morbidly obese, well-developed, well-nourished Head exam: PRESENT: atraumatic, normocephalic Eye exam: PRESENT: conjunctiva pink, EOMI, PERRLA. ABSENT: scleral icterus Ear exam: PRESENT: normal external ear exam Mouth exam: PRESENT: moist, tongue midline Neck exam: ABSENT: carotid bruit, JVD, lymphadenopathy, thyromegaly Respiratory exam: PRESENT: clear to auscultation shari. ABSENT: rales, rhonchi, wheezes Cardiovascular exam: PRESENT: RRR. ABSENT: diastolic murmur, rubs, systolic murmur Pulses: PRESENT: normal dorsalis pedis pul Vascular exam: PRESENT: normal capillary refill GI/Abdominal exam: PRESENT: normal bowel sounds, soft. ABSENT: distended, guarding, mass, organolmegaly, rebound, tenderness Rectal exam: PRESENT: deferred Extremities exam: PRESENT: full ROM. ABSENT: calf tenderness, clubbing, pedal edema Neurological exam: PRESENT: alert, awake, oriented to person, oriented to place , CN II-XII grossly intact. ABSENT: motor sensory deficit Psychiatric exam: PRESENT: appropriate affect, normal mood. ABSENT: homicidal ideation, suicidal ideation Skin exam: PRESENT: dry, rash, warm, other - Lower extremity blisters and bullae. ABSENT: cyanosis Results Laboratory Results: 10/13/17 04:30 10/13/17 04:30 10/04/17 06:10 NT-Pro-B Natriuret Pep 321 Impressions: Chest/Abdomen CTA 10/04/17 00:00 IMPRESSION: 1. No pulmonary embolus. There may be pulmonary arterial hypertension, however. 2. Marked cardiomegaly. Small right pleural effusion. 3. Motion artifact and lung changes as above. Suspect some of this represents mild edema related to CHF. Chest X-Ray 10/05/17 00:00 IMPRESSION: 1. Mild pulmonary edema. 2. No pneumothorax. 3. Catheter placement as described. Transvaginal US 10/05/17 00:00 IMPRESSION: Nondiagnostic study Abdomen/Pelvis CT 10/14/17 00:00 IMPRESSION: Mild ground-glass opacity in the lungs, question mild fluid overload or congestive failure Huge left lateral abdominal wall hernia containing the majority of patients colon and small bowel without evidence of bowel obstruction. Chest CT 10/14/17 00:00 IMPRESSION: Mild ground-glass opacity in the lungs, question mild fluid overload or congestive failure Huge left lateral abdominal wall hernia containing the majority of patients colon and small bowel without evidence of bowel obstruction. Assessment & Plan - Time Time Spent with patient: 15-24 minutes Medications reviewed and adjusted accordingly: Yes Anticipated discharge: Home with Homehealth - Inpatient Certification Based on my medical assessment, after consideration of the patient's comorbidities, presenting symptoms, or acuity I expect that the services needed warrant INPATIENT care.: Yes Medical Necessity: Significant Comorbidiites Make Outpatient Treatment Too Risky , Risk of Complication if Not Cared For in Hospital
[2017-10-18] MEDS: FENTANYL 25 MCG/HR PATCH.TD72 TD SCH (21:46)
[2017-10-19] MEDS: OXYCODONE-ACETAMINOPHEN 5-325 MG TABLET PO PRN ×3 (04:22→21:43)
[2017-10-19] MEDS: CEPHALEXIN 500 MG CAPSULE PO SCH ×3 (06:20→21:43)
[2017-10-19] MEDS: PREGABALIN 25 MG CAPSULE PO SCH (06:20)
[2017-10-19] MEDS: ENOXAPARIN SODIUM INJ 40 MG/0.4 ML DISP.SYRIN SUBCUT SCH (10:31)
[2017-10-19] MEDS: MEDROXYPROGESTERONE ACET 10 MG TABLET PO SCH (10:31)
[2017-10-19] MEDS: DOCUSATE SODIUM 100 MG CAPSULE PO SCH ×2 (10:31→17:42)
[2017-10-19] MEDS ORDERED: PREGABALIN 25 MG CAPSULE PO SCH (12:42)
--- NOTE | 2017-10-19 12:51 | PDOC PROGRESS REPORT ---
Subjective Progress Note for:: 10/19/17 Subjective:: E Patient currently on oral antibiotics. She is slowly ambulating. She is just not able to go home in this condition and will benefit from Rehab. Will d/w CM the status of any Rehab plans Reason For Visit: CELLULITIS MORBID OBESITY Physical Exam Vital Signs: Temp Pulse Resp BP Pulse Ox 98.2 F 90 21 H 126/65 H 91 L 10/19/17 11:55 10/19/17 11:55 10/19/17 11:55 10/19/17 11:55 10/19/17 11:55 Intake & Output 10/18/17 10/19/17 10/20/17 06:59 06:59 06:59 Intake Total 1596 1505 Output Total 2550 4150 Balance -954 -2645 Weight 130.7 kg 126.1 kg General appearance: PRESENT: no acute distress, morbidly obese, well-developed, well-nourished Head exam: PRESENT: atraumatic, normocephalic Eye exam: PRESENT: conjunctiva pink, EOMI, PERRLA. ABSENT: scleral icterus Ear exam: PRESENT: normal external ear exam Mouth exam: PRESENT: moist, tongue midline Neck exam: ABSENT: carotid bruit, JVD, lymphadenopathy, thyromegaly Respiratory exam: PRESENT: clear to auscultation shari. ABSENT: rales, rhonchi, wheezes Cardiovascular exam: PRESENT: RRR. ABSENT: diastolic murmur, rubs, systolic murmur Pulses: PRESENT: normal dorsalis pedis pul Vascular exam: PRESENT: normal capillary refill GI/Abdominal exam: PRESENT: normal bowel sounds, soft. ABSENT: distended, guarding, mass, organolmegaly, rebound, tenderness Rectal exam: PRESENT: deferred Extremities exam: PRESENT: calf tenderness, +1 edema. ABSENT: clubbing, pedal edema Neurological exam: PRESENT: alert, awake, oriented to person, oriented to time. ABSENT: motor sensory deficit Psychiatric exam: PRESENT: appropriate affect, normal mood. ABSENT: homicidal ideation, suicidal ideation Skin exam: PRESENT: rash - blisters improving, other - skin tender on. ABSENT: cyanosis Results Laboratory Results: 10/13/17 04:30 10/13/17 04:30 10/04/17 06:10 NT-Pro-B Natriuret Pep 321 Impressions: Chest/Abdomen CTA 10/04/17 00:00 IMPRESSION: 1. No pulmonary embolus. There may be pulmonary arterial hypertension, however. 2. Marked cardiomegaly. Small right pleural effusion. 3. Motion artifact and lung changes as above. Suspect some of this represents mild edema related to CHF. Chest X-Ray 10/05/17 00:00 IMPRESSION: 1. Mild pulmonary edema. 2. No pneumothorax. 3. Catheter placement as described. Transvaginal US 10/05/17 00:00 IMPRESSION: Nondiagnostic study Abdomen/Pelvis CT 10/14/17 00:00 IMPRESSION: Mild ground-glass opacity in the lungs, question mild fluid overload or congestive failure Huge left lateral abdominal wall hernia containing the majority of patients colon and small bowel without evidence of bowel obstruction. Chest CT 10/14/17 00:00 IMPRESSION: Mild ground-glass opacity in the lungs, question mild fluid overload or congestive failure Huge left lateral abdominal wall hernia containing the majority of patients colon and small bowel without evidence of bowel obstruction. Assessment & Plan - Diagnosis (2) Chronic venous insufficiency Is this a current diagnosis for this admission?: Yes (3) Lower extremity cellulitis Qualifiers: Laterality: right Qualified Code(s): L03.115 - Cellulitis of right lower limb Is this a current diagnosis for this admission?: Yes (4) Morbid obesity Is this a current diagnosis for this admission?: Yes - Time Time Spent with patient: 15-24 minutes Medications reviewed and adjusted accordingly: Yes Anticipated discharge: Other - Inpatient Certification Based on my medical assessment, after consideration of the patient's comorbidities, presenting symptoms, or acuity I expect that the services needed warrant INPATIENT care.: Yes Medical Necessity: Significant Comorbidiites Make Outpatient Treatment Too Risky , Need Close Monitoring Due to Risk of Patient Decompensation
[2017-10-19] MEDS: PREGABALIN 50 MG CAPSULE PO SCH ×2 (15:42→21:43)
[2017-10-20] MEDS: OXYCODONE-ACETAMINOPHEN 5-325 MG TABLET PO PRN ×3 (04:02→19:37)
[2017-10-20] MEDS: PREGABALIN 50 MG CAPSULE PO SCH ×3 (05:21→21:01)
[2017-10-20] MEDS: CEPHALEXIN 500 MG CAPSULE PO SCH ×2 (05:21→14:58)
[2017-10-20 05:42] LABS: ABSOLUTE BASOPHILS # (AUTO) 0.1 10^3/uL (0.0-0.2); ABSOLUTE EOSINOPHILS # (AUTO) 0.7 10^3/uL (0.0-0.6); ABSOLUTE LYMPHOCYTES (AUTO) 0.9 10^3/uL (0.5-4.7); ABSOLUTE MONOCYTES (AUTO) 0.7 10^3/uL (0.1-1.4); ABSOLUTE NEUT (AUTO) 6.2 10^3/uL (1.7-8.2); BASOPHILS % (AUTO) 1.2 % (0-2); EOSINOPHILS % (AUTO) 7.8 % (0-6); HEMATOCRIT 37.7 % (36.0-47.0); HEMOGLOBIN 12.1 g/dL (12.0-15.5); LYMPHOCYTES % (AUTO) 10.5 % (13-45); MEAN CORPUSCULAR HEMOGLOBIN 27.1 pg (27.0-33.4); MEAN CORPUSCULAR HGB CONC 32.1 g/dL (32.0-36.0); MEAN CORPUSCULAR VOLUME 84 fl (80-97); PLATELET COUNT 367 10^3/uL (150-450); RED BLOOD COUNT 4.47 10^6/uL (3.72-5.28); RED CELL DISTRIBUTION WIDTH 15.7 % (11.5-14.0); SEGMENTED NEUTROPHILS % (AUTO) 72.5 % (42-78); TOTAL CELLS COUNTED % (AUTO) 100 %; WHITE BLOOD COUNT 8.5 10^3/uL (4.0-10.5)
[2017-10-20 06:04] LABS: ANION GAP 9 (5-19); BLOOD UREA NITROGEN 16 mg/dL (7-20); CALCIUM 9.6 mg/dL (8.4-10.2); CARBON DIOXIDE 35 mmol/L (22-30); CHLORIDE 100 mmol/L (98-107); GLUCOSE 103 mg/dL (75-110); POTASSIUM 4.8 mmol/L (3.6-5.0); SODIUM 143.8 mmol/L (137-145)
[2017-10-20] MEDS: ENOXAPARIN SODIUM INJ 40 MG/0.4 ML DISP.SYRIN SUBCUT SCH (10:13)
[2017-10-20] MEDS: MEDROXYPROGESTERONE ACET 10 MG TABLET PO SCH (10:14)
[2017-10-20] MEDS: DOCUSATE SODIUM 100 MG CAPSULE PO SCH ×2 (10:14→17:33)
--- NOTE | 2017-10-20 14:23 | PDOC PROGRESS REPORT ---
Subjective Progress Note for:: 10/20/17 Subjective:: Patient feels she is getting better. Ambulation is still very minimal. Leg tenderness is not is bad. She has a Serna in situ because it will be just too difficult to get this patient to the bathroom on time. She is requiring 2 assist maximal. There has been no further purpuric, Petechia or any other kind of lesions on the skin Reason For Visit: CELLULITIS MORBID OBESITY Physical Exam Vital Signs: Temp Pulse Resp BP Pulse Ox 98.2 F 84 22 H 124/81 98 10/20/17 11:36 10/20/17 11:36 10/20/17 11:36 10/20/17 11:36 10/20/17 11:36 Intake & Output 10/19/17 10/20/17 10/21/17 06:59 06:59 06:59 Intake Total 1505 1548 Output Total 4150 2700 Balance -2645 -1152 Weight 126.1 kg 136.9 kg General appearance: PRESENT: no acute distress, morbidly obese, well-developed, well-nourished Head exam: PRESENT: atraumatic, normocephalic Eye exam: PRESENT: conjunctiva pink, EOMI, PERRLA. ABSENT: scleral icterus Ear exam: PRESENT: normal external ear exam Mouth exam: PRESENT: moist, tongue midline Neck exam: ABSENT: carotid bruit, JVD, lymphadenopathy, thyromegaly Respiratory exam: PRESENT: clear to auscultation shari. ABSENT: rales, rhonchi, wheezes Cardiovascular exam: PRESENT: RRR. ABSENT: diastolic murmur, rubs, systolic murmur Pulses: PRESENT: normal dorsalis pedis pul Vascular exam: PRESENT: normal capillary refill GI/Abdominal exam: PRESENT: normal bowel sounds, soft. ABSENT: distended, guarding, mass, organolmegaly, rebound, tenderness Rectal exam: PRESENT: deferred Extremities exam: PRESENT: full ROM. ABSENT: calf tenderness, clubbing, pedal edema Neurological exam: PRESENT: alert, awake, oriented to person, oriented to place. ABSENT: motor sensory deficit Psychiatric exam: PRESENT: appropriate affect, normal mood. ABSENT: homicidal ideation, suicidal ideation Skin exam: PRESENT: warm, other - healing lesions lower extremities. ABSENT: cyanosis, rash Results Laboratory Results: 10/20/17 05:20 10/20/17 05:20 10/20/17 10/20/17 05:20 05:20 WBC 8.5 RBC 4.47 Hgb 12.1 Hct 37.7 MCV 84 MCH 27.1 MCHC 32.1 RDW 15.7 H Plt Count 367 Seg Neutrophils % 72.5 Lymphocytes % 10.5 L Monocytes % 8.0 Eosinophils % 7.8 H Basophils % 1.2 Absolute Neutrophils 6.2 Absolute Lymphocytes 0.9 Absolute Monocytes 0.7 Absolute Eosinophils 0.7 H Absolute Basophils 0.1 Sodium 143.8 Potassium 4.8 Chloride 100 Carbon Dioxide 35 H Anion Gap 9 BUN 16 Creatinine 0.64 Est GFR ( Amer) > 60 Est GFR (Non-Af Amer) > 60 Glucose 103 Calcium 9.6 10/04/17 06:10 NT-Pro-B Natriuret Pep 321 Impressions: Chest/Abdomen CTA 10/04/17 00:00 IMPRESSION: 1. No pulmonary embolus. There may be pulmonary arterial hypertension, however. 2. Marked cardiomegaly. Small right pleural effusion. 3. Motion artifact and lung changes as above. Suspect some of this represents mild edema related to CHF. Chest X-Ray 10/05/17 00:00 IMPRESSION: 1. Mild pulmonary edema. 2. No pneumothorax. 3. Catheter placement as described. Transvaginal US 10/05/17 00:00 IMPRESSION: Nondiagnostic study Abdomen/Pelvis CT 10/14/17 00:00 IMPRESSION: Mild ground-glass opacity in the lungs, question mild fluid overload or congestive failure Huge left lateral abdominal wall hernia containing the majority of patients colon and small bowel without evidence of bowel obstruction. Chest CT 10/14/17 00:00 IMPRESSION: Mild ground-glass opacity in the lungs, question mild fluid overload or congestive failure Huge left lateral abdominal wall hernia containing the majority of patients colon and small bowel without evidence of bowel obstruction. Assessment & Plan - Diagnosis (1) Physical deconditioning Is this a current diagnosis for this admission?: Yes Plan: Patient will need to get stronger in hospital prior to dc home. Unable to go to Rehab and currently lives in a motel room (2) Chronic venous insufficiency Is this a current diagnosis for this admission?: Yes (3) Lower extremity cellulitis Qualifiers: Laterality: right Qualified Code(s): L03.115 - Cellulitis of right lower limb Is this a current diagnosis for this admission?: Yes Plan: Complete 14 days of abx and dc (4) Morbid obesity Is this a current diagnosis for this admission?: Yes - Time Time Spent with patient: 15-24 minutes Medications reviewed and adjusted accordingly: Yes Anticipated discharge: Home - Inpatient Certification Based on my medical assessment, after consideration of the patient's comorbidities, presenting symptoms, or acuity I expect that the services needed warrant INPATIENT care.: Yes Medical Necessity: Significant Comorbidiites Make Outpatient Treatment Too Risky , Need Close Monitoring Due to Risk of Patient Decompensation
[2017-10-21] MEDS: OXYCODONE-ACETAMINOPHEN 5-325 MG TABLET PO PRN ×4 (01:50→23:54)
[2017-10-21] MEDS: PREGABALIN 50 MG CAPSULE PO SCH ×3 (05:55→21:45)
[2017-10-21] MEDS: DOCUSATE SODIUM 100 MG CAPSULE PO SCH ×2 (08:43→17:16)
[2017-10-21] MEDS: NORMAL SALINE INJ/PF 0.9% 10 ML SDV IV PRN (08:44)
[2017-10-21] MEDS: MEDROXYPROGESTERONE ACET 10 MG TABLET PO SCH (08:52)
[2017-10-21] MEDS: ENOXAPARIN SODIUM INJ 40 MG/0.4 ML DISP.SYRIN SUBCUT SCH (08:52)
[2017-10-22] MEDS: OXYCODONE-ACETAMINOPHEN 5-325 MG TABLET PO PRN ×3 (05:57→19:14)
[2017-10-22] MEDS: PREGABALIN 50 MG CAPSULE PO SCH ×3 (05:57→21:53)
[2017-10-22] MEDS: ENOXAPARIN SODIUM INJ 40 MG/0.4 ML DISP.SYRIN SUBCUT SCH (10:09)
[2017-10-22] MEDS: DOCUSATE SODIUM 100 MG CAPSULE PO SCH ×2 (10:12→17:43)
[2017-10-22] MEDS: MEDROXYPROGESTERONE ACET 10 MG TABLET PO SCH (10:13)
--- NOTE | 2017-10-22 17:29 | PDOC PROGRESS REPORT ---
Subjective Progress Note for:: 10/21/17 Subjective:: Patient feels she is getting better. Ambulation is still very minimal. Leg tenderness is not is bad. She has a Serna in situ because it will be just too difficult to get this patient to the bathroom on time. She is requiring 2 assist maximal. There has been no further purpuric, Petechia or any other kind of lesions on the skin Reason For Visit: CELLULITIS MORBID OBESITY Physical Exam Vital Signs: Temp Pulse Resp BP Pulse Ox 98.4 F 87 16 113/56 L 96 10/22/17 15:22 10/22/17 15:22 10/22/17 15:22 10/22/17 15:22 10/22/17 15:22 Intake & Output 10/21/17 10/22/17 10/23/17 06:59 06:59 06:59 Intake Total 1315 1597 Output Total 3900 4375 Balance -2585 -2178 Weight 126.1 kg 132.6 kg General appearance: PRESENT: no acute distress, morbidly obese, well-developed, well-nourished Head exam: PRESENT: atraumatic, normocephalic Eye exam: PRESENT: conjunctiva pink, EOMI, PERRLA. ABSENT: scleral icterus Ear exam: PRESENT: normal external ear exam Mouth exam: PRESENT: moist, tongue midline Neck exam: ABSENT: carotid bruit, JVD, lymphadenopathy, thyromegaly Respiratory exam: PRESENT: clear to auscultation shari. ABSENT: rales, rhonchi, wheezes Cardiovascular exam: PRESENT: RRR. ABSENT: diastolic murmur, rubs, systolic murmur Pulses: PRESENT: normal dorsalis pedis pul Vascular exam: PRESENT: normal capillary refill GI/Abdominal exam: PRESENT: normal bowel sounds, soft. ABSENT: distended, guarding, mass, organolmegaly, rebound, tenderness Rectal exam: PRESENT: deferred Extremities exam: PRESENT: full ROM. ABSENT: calf tenderness, clubbing, pedal edema Neurological exam: PRESENT: alert, awake, oriented to person, oriented to place , oriented to time, oriented to situation, CN II-XII grossly intact. ABSENT: motor sensory deficit Psychiatric exam: PRESENT: appropriate affect, normal mood. ABSENT: homicidal ideation, suicidal ideation Skin exam: PRESENT: dry, erythema, rash, warm. ABSENT: cyanosis Results Laboratory Results: 10/20/17 05:20 10/20/17 05:20 10/04/17 06:10 NT-Pro-B Natriuret Pep 321 Impressions: Chest/Abdomen CTA 10/04/17 00:00 IMPRESSION: 1. No pulmonary embolus. There may be pulmonary arterial hypertension, however. 2. Marked cardiomegaly. Small right pleural effusion. 3. Motion artifact and lung changes as above. Suspect some of this represents mild edema related to CHF. Chest X-Ray 10/05/17 00:00 IMPRESSION: 1. Mild pulmonary edema. 2. No pneumothorax. 3. Catheter placement as described. Transvaginal US 10/05/17 00:00 IMPRESSION: Nondiagnostic study Abdomen/Pelvis CT 10/14/17 00:00 IMPRESSION: Mild ground-glass opacity in the lungs, question mild fluid overload or congestive failure Huge left lateral abdominal wall hernia containing the majority of patients colon and small bowel without evidence of bowel obstruction. Chest CT 10/14/17 00:00 IMPRESSION: Mild ground-glass opacity in the lungs, question mild fluid overload or congestive failure Huge left lateral abdominal wall hernia containing the majority of patients colon and small bowel without evidence of bowel obstruction. Assessment & Plan - Diagnosis (1) Physical deconditioning Is this a current diagnosis for this admission?: Yes Plan: Awaiting patient improving physically and at that time she likely can be discharged home (2) Chronic venous insufficiency Is this a current diagnosis for this admission?: Yes Plan: Continue local care (3) Lower extremity cellulitis Qualifiers: Laterality: right Qualified Code(s): L03.115 - Cellulitis of right lower limb Is this a current diagnosis for this admission?: Yes Plan: Infection seems to be almost all resolved (4) Morbid obesity Is this a current diagnosis for this admission?: Yes - Time Time Spent with patient: 15-24 minutes Medications reviewed and adjusted accordingly: Yes Anticipated discharge: Home Within: within 72 hours - Inpatient Certification Based on my medical assessment, after consideration of the patient's comorbidities, presenting symptoms, or acuity I expect that the services needed warrant INPATIENT care.: Yes Medical Necessity: Significant Comorbidiites Make Outpatient Treatment Too Risky , Risk of Complication if Not Cared For in Hospital
--- NOTE | 2017-10-22 17:32 | PDOC PROGRESS REPORT ---
Subjective Progress Note for:: 10/22/17 Subjective:: There are no new changes. Patient feels she is getting better and stronger Reason For Visit: CELLULITIS MORBID OBESITY Physical Exam Vital Signs: Temp Pulse Resp BP Pulse Ox 98.4 F 87 16 113/56 L 96 10/22/17 15:22 10/22/17 15:22 10/22/17 15:22 10/22/17 15:22 10/22/17 15:22 Intake & Output 10/21/17 10/22/17 10/23/17 06:59 06:59 06:59 Intake Total 1315 1597 Output Total 3900 8878 Balance -1119 -2468 Weight 126.1 kg 132.6 kg General appearance: PRESENT: no acute distress, morbidly obese, well-developed Head exam: PRESENT: atraumatic, normocephalic Eye exam: PRESENT: conjunctiva pink, EOMI, PERRLA. ABSENT: scleral icterus Ear exam: PRESENT: normal external ear exam Mouth exam: PRESENT: moist, tongue midline Neck exam: ABSENT: carotid bruit, JVD, lymphadenopathy, thyromegaly Respiratory exam: PRESENT: clear to auscultation shari. ABSENT: rales, rhonchi, wheezes Cardiovascular exam: PRESENT: RRR. ABSENT: diastolic murmur, rubs, systolic murmur Pulses: PRESENT: normal dorsalis pedis pul Vascular exam: PRESENT: normal capillary refill GI/Abdominal exam: PRESENT: normal bowel sounds, soft. ABSENT: distended, guarding, mass, organolmegaly, rebound, tenderness Rectal exam: PRESENT: deferred Extremities exam: PRESENT: full ROM. ABSENT: calf tenderness, clubbing, pedal edema Musculoskeletal exam: PRESENT: ambulatory Neurological exam: PRESENT: alert, awake, oriented to person, oriented to place , oriented to time, oriented to situation, CN II-XII grossly intact. ABSENT: motor sensory deficit Psychiatric exam: PRESENT: appropriate affect, normal mood. ABSENT: homicidal ideation, suicidal ideation Skin exam: PRESENT: dry, erythema, intact, rash - Lower extremity rash as well as erythema subsiding, warm. ABSENT: cyanosis Results Laboratory Results: 10/20/17 05:20 10/20/17 05:20 10/04/17 06:10 NT-Pro-B Natriuret Pep 321 Impressions: Chest/Abdomen CTA 10/04/17 00:00 IMPRESSION: 1. No pulmonary embolus. There may be pulmonary arterial hypertension, however. 2. Marked cardiomegaly. Small right pleural effusion. 3. Motion artifact and lung changes as above. Suspect some of this represents mild edema related to CHF. Chest X-Ray 10/05/17 00:00 IMPRESSION: 1. Mild pulmonary edema. 2. No pneumothorax. 3. Catheter placement as described. Transvaginal US 10/05/17 00:00 IMPRESSION: Nondiagnostic study Abdomen/Pelvis CT 10/14/17 00:00 IMPRESSION: Mild ground-glass opacity in the lungs, question mild fluid overload or congestive failure Huge left lateral abdominal wall hernia containing the majority of patients colon and small bowel without evidence of bowel obstruction. Chest CT 10/14/17 00:00 IMPRESSION: Mild ground-glass opacity in the lungs, question mild fluid overload or congestive failure Huge left lateral abdominal wall hernia containing the majority of patients colon and small bowel without evidence of bowel obstruction. Assessment & Plan - Diagnosis (1) Physical deconditioning Is this a current diagnosis for this admission?: Yes Plan: Awaiting patient to get physically stronger prior to discharge (2) Chronic venous insufficiency Is this a current diagnosis for this admission?: Yes Plan: Continue local treatment (3) Lower extremity cellulitis Qualifiers: Laterality: right Qualified Code(s): L03.115 - Cellulitis of right lower limb Is this a current diagnosis for this admission?: Yes (4) Morbid obesity Is this a current diagnosis for this admission?: Yes - Time Time Spent with patient: Less than 15 minutes Medications reviewed and adjusted accordingly: Yes Anticipated discharge: Home Within: within 72 hours - Inpatient Certification Based on my medical assessment, after consideration of the patient's comorbidities, presenting symptoms, or acuity I expect that the services needed warrant INPATIENT care.: Yes Medical Necessity: Significant Comorbidiites Make Outpatient Treatment Too Risky
[2017-10-22] MEDS: ACETAMINOPHEN 325 MG TABLET PO PRN (21:53)
[2017-10-23] MEDS: PREGABALIN 50 MG CAPSULE PO SCH ×3 (06:01→21:52)
[2017-10-23] MEDS: OXYCODONE-ACETAMINOPHEN 5-325 MG TABLET PO PRN ×2 (11:06→19:30)
[2017-10-23] MEDS: MEDROXYPROGESTERONE ACET 10 MG TABLET PO SCH (11:06)
[2017-10-23] MEDS: DOCUSATE SODIUM 100 MG CAPSULE PO SCH ×2 (11:08→18:26)
[2017-10-23] MEDS: ENOXAPARIN SODIUM INJ 40 MG/0.4 ML DISP.SYRIN SUBCUT SCH (11:08)
[2017-10-23] MEDS: ACETAMINOPHEN 325 MG TABLET PO PRN ×2 (13:46→22:46)
--- NOTE | 2017-10-23 19:08 | PDOC PROGRESS REPORT ---
Subjective Progress Note for:: 10/23/17 Subjective:: There are no new changes. Patient feels she is getting better and stronger I will start ambulate with the physical therapist today and it was really an ordeal. She required max assist and it was really of very difficult for her to even take a few steps with assistance. Reason For Visit: CELLULITIS MORBID OBESITY Physical Exam Vital Signs: Temp Pulse Resp BP Pulse Ox 98.3 F 92 15 128/68 H 91 L 10/23/17 14:22 10/23/17 14:22 10/23/17 14:22 10/23/17 14:22 10/23/17 14:22 Intake & Output 10/22/17 10/23/17 10/24/17 06:59 06:59 06:59 Intake Total 1076 368 4425 Output Total 4375 1500 1900 Balance -9758 -900 68 Weight 132.6 kg 133.5 kg General appearance: PRESENT: no acute distress, morbidly obese Head exam: PRESENT: atraumatic Respiratory exam: PRESENT: clear to auscultation shari, symmetrical, unlabored. ABSENT: accessory muscle use, chest wall tenderness Pulses: PRESENT: normal dorsalis pedis pul GI/Abdominal exam: PRESENT: normal bowel sounds, soft. ABSENT: distended, guarding, mass, organolmegaly, rebound, tenderness Rectal exam: PRESENT: deferred Neurological exam: PRESENT: alert, awake, oriented to time Skin exam: PRESENT: erythema, rash, vesicles Results Laboratory Results: 10/20/17 05:20 10/20/17 05:20 10/04/17 06:10 NT-Pro-B Natriuret Pep 321 Impressions: Chest/Abdomen CTA 10/04/17 00:00 IMPRESSION: 1. No pulmonary embolus. There may be pulmonary arterial hypertension, however. 2. Marked cardiomegaly. Small right pleural effusion. 3. Motion artifact and lung changes as above. Suspect some of this represents mild edema related to CHF. Chest X-Ray 10/05/17 00:00 IMPRESSION: 1. Mild pulmonary edema. 2. No pneumothorax. 3. Catheter placement as described. Transvaginal US 10/05/17 00:00 IMPRESSION: Nondiagnostic study Abdomen/Pelvis CT 10/14/17 00:00 IMPRESSION: Mild ground-glass opacity in the lungs, question mild fluid overload or congestive failure Huge left lateral abdominal wall hernia containing the majority of patients colon and small bowel without evidence of bowel obstruction. Chest CT 10/14/17 00:00 IMPRESSION: Mild ground-glass opacity in the lungs, question mild fluid overload or congestive failure Huge left lateral abdominal wall hernia containing the majority of patients colon and small bowel without evidence of bowel obstruction. Assessment & Plan - Diagnosis (1) Physical deconditioning Is this a current diagnosis for this admission?: Yes (2) Chronic venous insufficiency Is this a current diagnosis for this admission?: Yes (3) Lower extremity cellulitis Qualifiers: Laterality: right Qualified Code(s): L03.115 - Cellulitis of right lower limb Is this a current diagnosis for this admission?: Yes (4) Morbid obesity Is this a current diagnosis for this admission?: Yes - Time Time Spent with patient: 15-24 minutes Smoking Cessation Education: 3 to 10 minutes Anticipated discharge: Home, Acute Rehab - Inpatient Certification Based on my medical assessment, after consideration of the patient's comorbidities, presenting symptoms, or acuity I expect that the services needed warrant INPATIENT care.: Yes Medical Necessity: Significant Comorbidiites Make Outpatient Treatment Too Risky , Risk of Complication if Not Cared For in Hospital
[2017-10-23] MEDS: FLUTICASONE NASAL SPRAY 50 MCG/SPRY 120 SPRAY/16 GM NASL PRN (21:52)
[2017-10-24] MEDS: OXYCODONE-ACETAMINOPHEN 5-325 MG TABLET PO PRN ×4 (01:33→21:15)
[2017-10-24] MEDS: PREGABALIN 50 MG CAPSULE PO SCH ×3 (06:05→21:15)
[2017-10-24] MEDS: ENOXAPARIN SODIUM INJ 40 MG/0.4 ML DISP.SYRIN SUBCUT SCH (09:03)
[2017-10-24] MEDS: DOCUSATE SODIUM 100 MG CAPSULE PO SCH ×2 (09:03→17:15)
[2017-10-24] MEDS: MEDROXYPROGESTERONE ACET 10 MG TABLET PO SCH (09:03)
--- NOTE | 2017-10-24 14:59 | PDOC PROGRESS REPORT ---
Subjective Progress Note for:: 10/24/17 Subjective:: There are no new changes. Patient feels she is getting better and stronger I saw her ambulate with the physical therapist on Thursday and it was really an ordeal. She required max assist and it was really very difficult for her to even take a few steps with assistance. This patient will require a lot of work to be stable enough for safe discharge especially if she is to go home Reason For Visit: CELLULITIS MORBID OBESITY Physical Exam Vital Signs: Temp Pulse Resp BP Pulse Ox 98.1 F 90 16 141/60 H 92 10/24/17 12:00 10/24/17 14:00 10/24/17 12:00 10/24/17 12:00 10/24/17 12:00 Intake & Output 10/23/17 10/24/17 10/25/17 06:59 06:59 06:59 Intake Total 600 2634 1391 Output Total 1500 3600 750 Balance -900 -966 641 Weight 133.5 kg 124.058 kg General appearance: PRESENT: no acute distress, morbidly obese, well-developed Head exam: PRESENT: atraumatic Mouth exam: PRESENT: neck supple Respiratory exam: PRESENT: clear to auscultation shari. ABSENT: rales, rhonchi, wheezes Cardiovascular exam: PRESENT: RRR. ABSENT: diastolic murmur, rubs, systolic murmur Pulses: PRESENT: normal dorsalis pedis pul GI/Abdominal exam: PRESENT: normal bowel sounds, soft. ABSENT: distended, guarding, mass, organolmegaly, rebound, tenderness Rectal exam: PRESENT: deferred Extremities exam: PRESENT: tenderness - Generalized sensitivity on touching, +1 edema, other - Erythema improving and the rashes and blisters and bullae resolving on feet Musculoskeletal exam: PRESENT: ambulatory - With assistance Neurological exam: PRESENT: alert, awake, oriented to person, oriented to place , oriented to situation, CN II-XII grossly intact Psychiatric exam: PRESENT: appropriate affect Results Laboratory Results: 10/20/17 05:20 10/20/17 05:20 10/04/17 06:10 NT-Pro-B Natriuret Pep 321 Impressions: Chest/Abdomen CTA 10/04/17 00:00 IMPRESSION: 1. No pulmonary embolus. There may be pulmonary arterial hypertension, however. 2. Marked cardiomegaly. Small right pleural effusion. 3. Motion artifact and lung changes as above. Suspect some of this represents mild edema related to CHF. Chest X-Ray 10/05/17 00:00 IMPRESSION: 1. Mild pulmonary edema. 2. No pneumothorax. 3. Catheter placement as described. Transvaginal US 10/05/17 00:00 IMPRESSION: Nondiagnostic study Abdomen/Pelvis CT 10/14/17 00:00 IMPRESSION: Mild ground-glass opacity in the lungs, question mild fluid overload or congestive failure Huge left lateral abdominal wall hernia containing the majority of patients colon and small bowel without evidence of bowel obstruction. Chest CT 10/14/17 00:00 IMPRESSION: Mild ground-glass opacity in the lungs, question mild fluid overload or congestive failure Huge left lateral abdominal wall hernia containing the majority of patients colon and small bowel without evidence of bowel obstruction. Assessment & Plan - Diagnosis (1) Physical deconditioning Is this a current diagnosis for this admission?: Yes Plan: Right now this appears to be patient's main problem. There is some issue with her insurance and she is unable to go to rehab right now. She is living in a motel room with her and is just practically impossible for her to be discharged home in this condition with limited mobility and her wounds adjust her generalized poor condition. The goal is to get a little bit stronger hopefully and then may be she can go home with her in charge however I feel to see this happening anytime soon. Please consult lead case manager's notes for further information (2) Chronic venous insufficiency Is this a current diagnosis for this admission?: Yes (3) Lower extremity cellulitis Qualifiers: Laterality: right Qualified Code(s): L03.115 - Cellulitis of right lower limb Is this a current diagnosis for this admission?: Yes Plan: She has completed a course of antibiotics and infection seems to have resolved to subsided. (4) Morbid obesity Is this a current diagnosis for this admission?: Yes Plan: Chronic - Time Time Spent with patient: 15-24 minutes Medications reviewed and adjusted accordingly: Yes Anticipated discharge: Other - Inpatient Certification Based on my medical assessment, after consideration of the patient's comorbidities, presenting symptoms, or acuity I expect that the services needed warrant INPATIENT care.: Yes Medical Necessity: Significant Comorbidiites Make Outpatient Treatment Too Risky
[2017-10-24] MEDS: ACETAMINOPHEN 325 MG TABLET PO PRN (19:32)
[2017-10-24] MEDS: FLUTICASONE NASAL SPRAY 50 MCG/SPRY 120 SPRAY/16 GM NASL PRN (21:14)
[2017-10-25] MEDS: OXYCODONE-ACETAMINOPHEN 5-325 MG TABLET PO PRN ×3 (03:18→15:33)
[2017-10-25] MEDS: PREGABALIN 50 MG CAPSULE PO SCH ×3 (05:08→21:12)
[2017-10-25] MEDS: DOCUSATE SODIUM 100 MG CAPSULE PO SCH ×2 (09:32→17:45)
[2017-10-25] MEDS: ENOXAPARIN SODIUM INJ 40 MG/0.4 ML DISP.SYRIN SUBCUT SCH (09:32)
[2017-10-25] MEDS: MEDROXYPROGESTERONE ACET 10 MG TABLET PO SCH (09:33)
--- NOTE | 2017-10-25 10:25 | PROGRESS NOTE E ---
Progress Note NAME: CHIDI RIVERA : 1955 AGE: 61Y DATE: 10/25/2017 ROOM: 402 SUBJECTIVE: The patient is out of bed to the bedside chair. She states she feels okay today. The patient denies any nausea, vomiting, diarrhea. No shortness of breath, dizziness, chest pain. No fevers, chills. Patient has been afebrile. Blood pressures have been in a good range and the patient does not voice any other concerns at this time. REVIEW OF SYSTEMS: The rest of the review of systems is negative. MEDICATIONS: Medications have been reviewed. OBJECTIVE: GENERAL: The patient is a 61-year-old female who is awake, alert and oriented to person, place, time, situation. She is verbal, conversational. Does not appear to be in any acute distress. VITAL SIGNS: Temperature is 97.9, pulse 92, respirations 18, blood pressure is 133/76, oxygen saturation is 98% on 2 L nasal cannula. SKIN: Warm and dry. No rash. She is not diaphoretic. HEENT: Pupils equal, round and reactive to light and accommodation. Conjunctivae are pink. There is no evidence of JVP. CARDIOVASCULAR: Heart is regular. No rub. CHEST: Clear, symmetrical, unlabored. ABDOMEN: Obese, soft. EXTREMITIES: The patient does have some chronic lymphedema. Lower extremities are wrapped in appropriate bandages. DIAGNOSTICS: Lab values are as follows: Hematology obtained on 10/20/2017; WBC 8.5, hemoglobin 12.1, hematocrit 37.7, platelet count is 367,000. Chemistry obtained on 10/20/2017: Sodium is 142, potassium is 4.8, chloride is 100, carbon dioxide 35, BUN 16, creatinine 1.64, glucose 103, calcium is 9.6. IMPRESSION AND PLAN: 1. CHRONIC VENOUS STASIS ULCERS. These have been treated. Will continue chronic wound care. Encourage elevation when necessary. 2. BILATERAL LOWER EXTREMITY CELLULITIS SECONDARY TO CHRONIC VENOUS STASIS ULCERS. Appears resolving. 3. SEVERE PHYSICAL DECONDITIONING. The patient is currently awaiting rehab placement. 4. MORBID OBESITY WITH A BMI OF 52. Of course, encouraged weight reduction. 5. HYPERTENSION. Blood pressures have been in a decent range. Will resume the patient's home blood pressure medications. 6. VAGINAL BLEEDING. The patient has been seen by DEFENCE FORCE SENIOR OFFICER and felt the source was due to atrophy and anticoagulation. Recommended continuing Provera at this point. DISPOSITION: Patient is a FULL CODE. Pending patient's symptomatology and diagnostic findings will reevaluate in the a.m. TIME SPENT: On this follow up, including assessment and plan, physical examination, patient education, review of records, is 35 minutes. DICTATING PHYSICIAN: SLAVA GRAVES NP [id number] PHY#: [id number] ID: [id number] JOB#: [id number] ACCT: [id number] cc: > MTDD
[2017-10-25] MEDS: LISINOPRIL 10 MG TABLET PO SCH (12:03)
[2017-10-25] MEDS: ACETAMINOPHEN 325 MG TABLET PO PRN (20:02)
[2017-10-26] MEDS: OXYCODONE-ACETAMINOPHEN 5-325 MG TABLET PO PRN (03:27)
[2017-10-26] MEDS: PREGABALIN 50 MG CAPSULE PO SCH ×3 (05:24→21:03)
[2017-10-26] MEDS: ACETAMINOPHEN 325 MG TABLET PO PRN ×2 (09:06→18:54)
[2017-10-26] MEDS: LISINOPRIL 10 MG TABLET PO SCH (09:52)
[2017-10-26] MEDS: ENOXAPARIN SODIUM INJ 40 MG/0.4 ML DISP.SYRIN SUBCUT SCH (09:52)
[2017-10-26] MEDS: MEDROXYPROGESTERONE ACET 10 MG TABLET PO SCH (09:52)
[2017-10-26] MEDS: DOCUSATE SODIUM 100 MG CAPSULE PO SCH ×2 (09:52→17:08)
--- NOTE | 2017-10-26 12:20 | PROGRESS NOTE E ---
Progress Note NAME: CHIDI RIVERA : 1955 AGE: 61Y DATE: 10/26/2017 ROOM: 402 SUBJECTIVE: The patient is lying in bed. The patient still has a Serna in place. I questioned the patient about the Serna, and she stated it was put in place because she has had difficulty getting up to the bathroom. I explained to the patient that chronic Serna is not an issue if the patient is wanting to be rehabilitated. Therefore, will discontinue the Serna today and work on toileting, which gave the patient a great deal of anxiety. The patient has plans to move into a hotel in [place], and then their house should be ready, according to the patient. However, she does not feel at this point she can take care of herself, and needs some rehab. Social Work has been involved with this, and hoping to find placement for the patient; however, she is self pay with Medicaid pending. The patient has been encouraged to participate in therapies, but for the most part only gets up to the bedside chair. REVIEW OF SYSTEMS: The rest of the review of systems is negative. MEDICATION: Medication reviewed. OBJECTIVE: GENERAL: The patient is a 61-year-old female who is awake and alert. She is oriented to person, place, time, and situation. She is verbal and conversational. Does not appear to be distressed. VITAL SIGNS: Temperature 98.4, pulse 78, respirations 20, blood pressure 116/59, oxygen saturation 98% on room air. SKIN: Warm, dry, no rash. She is not diaphoretic. HEENT: Pupils are reactive. Conjunctivae pink. Mucous membranes are moist. CVS: Heart is regular. No rub. CHEST: Diminished. Symmetrical, unlabored. ABDOMEN: Obese, soft. EXTREMITIES: The patient has chronic changes of lymphedema. DIAGNOSTICS: Lab values are as follows: Hematology obtained on 10/20/2017: WBC 7.5, hemoglobin 12.1, hematocrit 37.7, platelet count is 367,000. Chemistry obtained on 10/20/2017: Sodium 147, potassium 4.8, chloride 100, 35, BUN 16, creatinine 0.64. Glucose 103. Calcium 9.6. ASSESSMENT/PLAN: 1. CHRONIC VENOUS STASIS ULCERS. The patient has completed her course of treatment. Continue chronic wound care. Encourage elevation when necessary. 2. BILATERAL LOWER EXTREMITY CELLULITIS, secondary to #1. Appears to be resolving. 3. SEVERE PHYSICAL DECONDITIONING. This is mainly related to the patient's morbid obesity with a BMI of 52. The patient has been encouraged to participate in therapies. However, this appears to be difficult for her. The patient was reluctant to have the Serna removed, but I was adamant that this needed to come out. Will premedicate with Flomax first. 4. HYPERTENSION. Blood pressures have been in a decent range. Will continue home medications. 5. VAGINAL BLEEDING. The patient has been seen by ROLL UP HELPER. It was felt this was due to the patient's atrophy and anticoagulation. It was recommended to continue Provera at this point. DISPOSITION: The patient is a full code. Depending on the patient's symptomatology and diagnostic findings, will reevaluate in the a.m. Time spent on this followup including assessment, plan, physical examination, patient education, review of record, and discussion with Social Work is 25 minutes. DICTATING PHYSICIAN: SLAVA GRAVES NP [id number] PHY#: [id number] ID: [id number] JOB#: [id number] ACCT: [id number] cc: > MTDSiri
[2017-10-26] MEDS ORDERED: TAMSULOSIN HCL 0.4 MG CAP.SR.24H PO ONE (12:30)
[2017-10-27] MEDS: OXYCODONE-ACETAMINOPHEN 5-325 MG TABLET PO PRN ×2 (01:22→13:13)
[2017-10-27] MEDS: ACETAMINOPHEN 325 MG TABLET PO PRN (03:36)
[2017-10-27] MEDS: FLUTICASONE NASAL SPRAY 50 MCG/SPRY 120 SPRAY/16 GM NASL PRN (04:43)
[2017-10-27] MEDS: PREGABALIN 50 MG CAPSULE PO SCH ×3 (06:05→21:05)
[2017-10-27] MEDS: MEDROXYPROGESTERONE ACET 10 MG TABLET PO SCH (09:11)
[2017-10-27] MEDS: ENOXAPARIN SODIUM INJ 40 MG/0.4 ML DISP.SYRIN SUBCUT SCH (09:12)
[2017-10-27] MEDS: DOCUSATE SODIUM 100 MG CAPSULE PO SCH ×2 (09:12→18:19)
[2017-10-27] MEDS: LISINOPRIL 10 MG TABLET PO SCH (09:12)
--- NOTE | 2017-10-27 12:57 | PDOC PROGRESS REPORT ---
Subjective Progress Note for:: 10/27/17 Subjective:: I seen patient while she is lying in bed. She is awake alert oriented. She is not in pain or any form of cardiorespiratory distress. No new complaints. Patient encouraged to participate with physical therapy as much as she can. Patient is clinically stable and placement is an issue. Reason For Visit: CELLULITIS MORBID OBESITY Physical Exam Vital Signs: Temp Pulse Resp BP Pulse Ox 97.5 F 82 18 103/60 96 10/27/17 12:00 10/27/17 12:00 10/27/17 12:00 10/27/17 12:00 10/27/17 12:00 Intake & Output 10/26/17 10/27/17 10/28/17 06:59 06:59 06:59 Intake Total 1789 1547 Output Total 2750 550 Balance -961 997 Weight 274.2 kg 123.2 kg General appearance: PRESENT: no acute distress Head exam: PRESENT: atraumatic Neck exam: ABSENT: carotid bruit, JVD, lymphadenopathy, thyromegaly Respiratory exam: PRESENT: clear to auscultation shari. ABSENT: rales, rhonchi, wheezes Cardiovascular exam: PRESENT: RRR. ABSENT: diastolic murmur, rubs, systolic murmur Extremities exam: PRESENT: other - Both feet are wrapped. Dressing is clean. Neurological exam: PRESENT: alert, awake, oriented to time, oriented to situation Psychiatric exam: PRESENT: normal mood Results Laboratory Results: 10/20/17 05:20 10/20/17 05:20 10/04/17 06:10 NT-Pro-B Natriuret Pep 321 Impressions: Chest/Abdomen CTA 10/04/17 00:00 IMPRESSION: 1. No pulmonary embolus. There may be pulmonary arterial hypertension, however. 2. Marked cardiomegaly. Small right pleural effusion. 3. Motion artifact and lung changes as above. Suspect some of this represents mild edema related to CHF. Chest X-Ray 10/05/17 00:00 IMPRESSION: 1. Mild pulmonary edema. 2. No pneumothorax. 3. Catheter placement as described. Transvaginal US 10/05/17 00:00 IMPRESSION: Nondiagnostic study Abdomen/Pelvis CT 10/14/17 00:00 IMPRESSION: Mild ground-glass opacity in the lungs, question mild fluid overload or congestive failure Huge left lateral abdominal wall hernia containing the majority of patients colon and small bowel without evidence of bowel obstruction. Chest CT 10/14/17 00:00 IMPRESSION: Mild ground-glass opacity in the lungs, question mild fluid overload or congestive failure Huge left lateral abdominal wall hernia containing the majority of patients colon and small bowel without evidence of bowel obstruction. Assessment & Plan - Diagnosis (1) Debility and conditioning Is this a current diagnosis for this admission?: Yes Plan: Patient needs aggressive rehab and physical therapy. (2) Venous stasis and bilateral cellulitis Is this a current diagnosis for this admission?: Yes Plan: Treated with antibiotics. The chance of having recurrent cellulitis high on this patient since she is morbidly obese and she has underlying venous stasis. (3) Morbid obesity Is this a current diagnosis for this admission?: Yes Plan: Still modification advised.
[2017-10-28] MEDS: PREGABALIN 50 MG CAPSULE PO SCH ×2 (05:04→15:06)
[2017-10-28] MEDS: DOCUSATE SODIUM 100 MG CAPSULE PO SCH (09:40)
[2017-10-28] MEDS: MEDROXYPROGESTERONE ACET 10 MG TABLET PO SCH (09:40)
[2017-10-28] MEDS: ENOXAPARIN SODIUM INJ 40 MG/0.4 ML DISP.SYRIN SUBCUT SCH (09:40)
[2017-10-28] MEDS: LISINOPRIL 10 MG TABLET PO SCH (09:41)
--- NOTE | 2017-10-28 12:39 | PDOC DISCHARGE SUMMARY ---
General - Admit/Disc Date/PCP Admission Date/Primary Care Provider: 10/04/17 01:17 ARNIE MEREDITH MD Discharge Date: 10/28/17 - Discharge Diagnosis (1) Debility and conditioning Is this a current diagnosis for this admission?: Yes (2) Venous stasis and bilateral cellulitis Is this a current diagnosis for this admission?: Yes (3) Morbid obesity Is this a current diagnosis for this admission?: Yes - Additional Information Resuscitation Status: Full Code Home Medications: Amitriptyline HCl 1 tab PO DAILY 10/04/17 Doxycycline Hyclate 100 mg PO DAILY 10/04/17 Duloxetine HCl 20 mg PO DAILY 10/04/17 Furosemide [Lasix 40 mg Tablet] 40 mg PO QAM 10/04/17 Gabapentin [Neurontin 300 mg Capsule] 900 mg PO Q8 10/04/17 Hydrocodone Bit/Acetaminophen [Hydrocodon-Acetaminophn 10-325] 1 each PO BID PRN 10/04/17 Lisinopril 10 mg PO DAILY 10/04/17 Medroxyprogesterone Acetate 1 tab PO TID 10/04/17 History of Present Illness History of Present Illness: CHIDI RIVERA is a 61 year old female with a past medical history of morbid obesity and bilateral venous stasis. Patient presents with 24 hours of right lower leg erythema swelling pain developing blisters in the toes bilaterally.. Patient has been on Keflex for chronic cellulitis via wound care clinic. She denies any new skin products, clothing, medications, seafood or water exposure. In the emergency room she is started on empiric antibiotics, symptomatic management and referred to the hospitalist for admission. Patient denies previous episode. Hospital Course Hospital Course: This 61-year-old poorly conditioned patient presents to the hospital with worsening lower extremity cellulitis. She does have a history of bilateral venous stasis, peripheral vascular disease as well as chronic cellulitis of the right lower extremities. She also gives a history of vaginal bleeding intermittently for months which according to her has been evaluated by a kiln firer helper who attributed the vaginal bleeding to atrophic vaginitis. She has been seen by general surgery due to the cellulitis and no surgical intervention is warranted a planned possible micro-emboli due to numerous hemorrhagic bullae to lower extremities as well as left hand. Doppler studies have been done which was somewhat limited but reveals no evidence of definite thromboembolism. Arterial study demonstrates 20-49% stenosis and echocardiogram reveals no evidence of cardioembolic source. CT of the abdomen as well as CTA generally negative. Patient is currently on vancomycin and cefepime. Patient went to [facility] today for the KIAN but unfortunately this was not done after evaluation by Dr. Nathan Vaughan states that he did not feel this was indicated. The rationale from our standpoint was that patient had what appeared to be arterial emboli with possible microembolization and KIAN was requested to rule out either a source of septic emboli from endocarditis or other etiology. Patient has had no atrial fibrillation while in hospital. Her trans-thoracic echocardiogram has been negative. Blood cultures have been negative. patient is taken of antibiotics and heparin.Currently patient is hemodinamically stable but physically deconditioned and needs rehab placement.Since she doesn't have ensurance she couldn't be transferred SNF. Patient able to participate with physical therapist.Patient claims hsr her son and will assist her with amulation Physical Exam Vital Signs: Temp Pulse Resp BP Pulse Ox 98.0 F 93 20 107/64 90 L 10/28/17 08:07 10/28/17 08:07 10/28/17 08:07 10/28/17 08:07 10/28/17 08:07 Intake & Output 10/27/17 10/28/17 10/29/17 06:59 06:59 06:59 Intake Total 1547 2979 Output Total 550 850 Balance 997 2129 Weight 123.2 kg 123.2 kg General appearance: PRESENT: no acute distress Head exam: PRESENT: atraumatic Eye exam: PRESENT: conjunctiva pink Neck exam: ABSENT: carotid bruit, JVD, lymphadenopathy, thyromegaly Respiratory exam: PRESENT: clear to auscultation shari. ABSENT: rales, rhonchi, wheezes Cardiovascular exam: PRESENT: RRR. ABSENT: diastolic murmur, rubs, systolic murmur GI/Abdominal exam: PRESENT: normal bowel sounds, soft. ABSENT: distended, guarding, mass, organolmegaly, rebound, tenderness Neurological exam: PRESENT: alert, awake, oriented to time, oriented to situation Psychiatric exam: PRESENT: normal mood Results Laboratory Results: 10/20/17 05:20 10/20/17 05:20 10/04/17 06:10 NT-Pro-B Natriuret Pep 321 Impressions: Chest/Abdomen CTA 10/04/17 00:00 IMPRESSION: 1. No pulmonary embolus. There may be pulmonary arterial hypertension, however. 2. Marked cardiomegaly. Small right pleural effusion. 3. Motion artifact and lung changes as above. Suspect some of this represents mild edema related to CHF. Chest X-Ray 10/05/17 00:00 IMPRESSION: 1. Mild pulmonary edema. 2. No pneumothorax. 3. Catheter placement as described. Transvaginal US 10/05/17 00:00 IMPRESSION: Nondiagnostic study Abdomen/Pelvis CT 10/14/17 00:00 IMPRESSION: Mild ground-glass opacity in the lungs, question mild fluid overload or congestive failure Huge left lateral abdominal wall hernia containing the majority of patients colon and small bowel without evidence of bowel obstruction. Chest CT 10/14/17 00:00 IMPRESSION: Mild ground-glass opacity in the lungs, question mild fluid overload or congestive failure Huge left lateral abdominal wall hernia containing the majority of patients colon and small bowel without evidence of bowel obstruction. Qualifiers - * PATIENT BEING DISCHARGED WITH ANY OF THE FOLLOWING DIAGNOSIS: No
[2017-10-28] MEDS: OXYCODONE-ACETAMINOPHEN 5-325 MG TABLET PO PRN (15:07)
[2017-10-28 15:45] VITALS: BP 107/49
== END 2017-10-28 17:00 | disposition home or self-care (01) | DRG 603 ==
LOC: EDBD 20:29 → ER 20:29 → EH 10-04 01:17 → 4N 10-04 03:45
PROVIDERS: ADMIT Internal Medicine; ATTEND Internal Medicine
PROC: 02H633Z Insertion of Infusion Device into Right Atrium, Percutaneous Approach (ICD-10-PCS; principal; 2017-10-05)
PROC: B244ZZZ Ultrasonography of Right Heart (ICD-10-PCS; 2017-10-05)
DX: L03.116 Cellulitis of left lower limb (principal); Z68.43 Body mass index [BMI] 50.0-59.9, adult; L03.115 Cellulitis of right lower limb; R23.8 Other skin changes; R09.02 Hypoxemia; I87.8 Other specified disorders of veins; E66.01 Morbid (severe) obesity due to excess calories; R00.0 Tachycardia, unspecified; N93.9 Abnormal uterine and vaginal bleeding, unspecified; Z88.0 Allergy status to penicillin; I10 Essential (primary) hypertension; I73.9 Peripheral vascular disease, unspecified; G47.30 Sleep apnea, unspecified; M19.90 Unspecified osteoarthritis, unspecified site; Z79.899 Other long term (current) drug therapy
CPT/HCPCS: 36415; 71045; 71260; 71275; 74177; 76830; 80048; 80053; 80202; 81001; 82550; 82565; 82803; 83036; 83605; 83880; 84443; 85025; 85027; 85379; 85384; 85610; 85652; 85730; 86140; 87040; 93005; 93010; 93306; 93926; 93970; 94640; 96365; 96367; 96375; 99285; C1751; J0690; J0692; J1642; J1644; J1650; J1885; J2270; J2405; J2997; J3010; J3370; J3490; J7030; J7060; J7620; S0119

== ENCOUNTER → 2020-02-07 | Outpatient (CLI) | payer MEDICAID ==
[2020-02-07 17:45] LABS: ABSOLUTE EOSINOPHILS # (AUTO) 0.2 10^3/uL (0.0-0.6); ABSOLUTE LYMPHOCYTES (AUTO) 0.6 10^3/uL (0.5-4.7); ABSOLUTE MONOCYTES (AUTO) 0.3 10^3/uL (0.1-1.4); ABSOLUTE NEUT (AUTO) 3.6 10^3/uL (1.7-8.2); EOSINOPHILS % (AUTO) 3.9 % (0-6); HEMATOCRIT 30.7 % (36.0-47.0); HEMOGLOBIN 9.9 g/dL (12.0-15.5); LYMPHOCYTES % (AUTO) 11.6 % (13-45); MEAN CORPUSCULAR HEMOGLOBIN 25.6 pg (27.0-33.4); MEAN CORPUSCULAR HGB CONC 32.2 g/dL (32.0-36.0); MEAN CORPUSCULAR VOLUME 80 fl (80-97); MONOCYTES % (AUTO) 6.6 % (3-13); PLATELET COUNT 385 10^3/uL (150-450); RED BLOOD COUNT 3.85 10^6/uL (3.72-5.28); RED CELL DISTRIBUTION WIDTH 18.8 % (11.5-14.0); SEGMENTED NEUTROPHILS % (AUTO) 76.9 % (42-78); TOTAL CELLS COUNTED % (AUTO) 100 %; WHITE BLOOD COUNT 4.7 10^3/uL (4.0-10.5)
[2020-02-07 17:53] LABS: ALBUMIN 3.8 g/dL (3.5-5.0); ALKALINE PHOSPHATASE 111 U/L (38-126); ANION GAP 12 (5-19); ASPARTATE AMINO TRANSFERASE 35 U/L (14-36); BILIRUBIN,DIRECT 0.4 mg/dL (0.0-0.4); BILIRUBIN,TOTAL 0.6 mg/dL (0.2-1.3); BLOOD UREA NITROGEN 14 mg/dL (7-20); CALCIUM 9.2 mg/dL (8.4-10.2); CARBON DIOXIDE 33 mmol/L (22-30); CHLORIDE 93 mmol/L (98-107); GLUCOSE 145 mg/dL (75-110); TOTAL PROTEIN 6.8 g/dL (6.3-8.2)
== END ==
LOC: OD 16:20
PROVIDERS: ATTEND Family Medicine
DX: I27.0 Primary pulmonary hypertension (principal); J44.9 Chronic obstructive pulmonary disease, unspecified; J96.11 Chronic respiratory failure with hypoxia; D62 Acute posthemorrhagic anemia
CPT/HCPCS: 36415; 80053; 85025